=== PATIENT | female | born 1930 | race Caucasian/White ===

== ENCOUNTER 2017-09-06 15:59 | Emergency (ER) | payer MEDICARE, OTHER ==
[2017-09-06 16:26] VITALS: BP 210/78
--- NOTE | 2017-09-06 17:01 | EDM.PDOC ---
ED HPI GENERAL MEDICAL PROBLEM - General Chief Complaint: Cardiovascular Problem Stated Complaint: HIGH BLOOD PRESSURE Time Seen by Provider: 09/06/17 16:15 Source of Information: Reports: Patient History Limitations: Reports: Other (poor memory ) - History of Present Illness INITIAL COMMENTS - FREE TEXT/NARRATIVE: 87 y/o F with hx CKD and HTN presents with asymptomatic high blood pressure. She 's here with her daughter. Daughter checked her BP at home and it was in the high 100's systolic so she brought her to walk in clinic who directed her here. Patient did take her medications today. She is on doxazosin, no additional antihypertensives. She states she's been compliant with her meds. Patient states she feels fine. She denies headache, vision changes, weakness, chest pain , SOB, abd pain, vomiting, lower extremity pain, or swelling. Daughter states she always has some ankle swelling and it appears to be at baseline. Patient has a history of either intolerance or allergy to a long list of antihypertensives (see allergy list) but is unable to state what the adverse reactions are and doesn't know if any are true allergies. - Related Data Allergies Allergy/AdvReac Type Severity Reaction Status Date / Time amlodipine [From Norvasc] Allergy Cannot Verified 09/06/17 16:14 Remember atorvastatin [From Lipitor] Allergy Cannot Verified 09/06/17 16:14 Remember fluvastatin [From Lescol] Allergy Cannot Verified 09/06/17 16:14 Remember hydrochlorothiazide Allergy Cannot Verified 09/06/17 16:14 Remember labetalol Allergy Cannot Verified 09/06/17 16:14 Remember lisinopril Allergy Cannot Verified 09/06/17 16:14 Remember nabumetone [From Relafen] Allergy Cannot Verified 09/06/17 16:14 Remember nebivolol [From Bystolic] Allergy Cannot Verified 09/06/17 16:14 Remember olmesartan [From Benicar] Allergy Cannot Verified 09/06/17 16:14 Remember pneumococcal vaccine Allergy Cannot Verified 09/06/17 16:14 Remember rosuvastatin [From Crestor] Allergy Cannot Verified 09/06/17 16:14 Remember simvastatin [From Zocor] Allergy Cannot Verified 09/06/17 16:14 Remember Home Meds: Home Meds Acyclovir 400 mg PO 09/06/17 [History] Alendronate [Fosamax] 70 mg PO 09/06/17 [History] Cephalexin [Keflex] 500 mg PO 09/06/17 [History] Cholecalciferol (Vitamin D3) [Vitamin D3] 09/06/17 [History] Cranberry 09/06/17 [History] Cyclophosphamide 25 mg PO 09/06/17 [History] Dapsone 09/06/17 [History] Doxazosin [Cardura] 09/06/17 [History] Esomeprazole [NexIUM] 09/06/17 [History] Ferrous Sulfate 325 mg PO WITHBREAKFAST 09/06/17 [History] Prednisone [IJD: predniSONE] 40 mg PO WITHBREAKFAST 09/06/17 [History] Sodium Bicarbonate 650 mg PO TID 09/06/17 [History] cloNIDine [Catapres] 0.1 mg PO Q12HR #60 tab 09/06/17 [Rx] hydrALAZINE [Apresoline] 10 mg PO Q8H #90 tab 09/06/17 [Rx] Past Medical History HEENT History: Reports: Cataract Cardiovascular History: Reports: Arrhythmia, Hypertension Gastrointestinal History: Reports: GERD Genitourinary History: Reports: Other (See Below) Other Genitourinary History: bladder spasms Other OB/BYN History: monarch sling Musculoskeletal History: Reports: Osteoarthritis Neurological History: Reports: Headaches, Chronic Other Hematologic History: hypercalcemia Oncologic (Cancer) History: Reports: Other (See Below) Other Oncologic History: decreased hemoglobin - Past Surgical History GI Surgical History: Reports: Cholecystectomy, Colonoscopy, Other (See Below) Female Surgical History: Reports: Cystectomy, Hysterectomy, Suprapubic Catheter Placement Musculoskeletal Surgical History: Reports: Arthroscopic Knee, Knee Replacement, Other (See Below) Dermatological Surgical History: Reports: Skin Biopsy Social & Family History - Family History Family Medical History: Noncontributory - Caffeine Use Caffeine Use: Reports: Coffee ED ROS GENERAL - Review of Systems Review Of Systems: See Below Constitutional: Reports: No Symptoms HEENT: Reports: No Symptoms Respiratory: Reports: No Symptoms. Denies: Shortness of Breath Cardiovascular: Reports: No Symptoms. Denies: Chest Pain Endocrine: Reports: No Symptoms GI/Abdominal: Denies: Abdominal Pain : Reports: No Symptoms Musculoskeletal: Reports: No Symptoms Skin: Reports: No Symptoms Neurological: Denies: Headache ED EXAM, GENERAL - Physical Exam Exam: See Below Exam Limited By: No Limitations General Appearance: Alert, WD/WN, No Apparent Distress Eye Exam: Bilateral Eye: Normal Inspection, PERRL Ears: Normal External Exam Nose: Normal Inspection Throat/Mouth: Normal Inspection, Normal Oropharynx, Normal Voice, No Airway Compromise Head: Atraumatic, Normocephalic Neck: Normal Inspection, Supple Respiratory/Chest: No Respiratory Distress, Lungs Clear, Normal Breath Sounds, No Accessory Muscle Use, Chest Non-Tender Cardiovascular: Normal Peripheral Pulses, Regular Rate, Rhythm, No Murmur GI/Abdominal: Soft, Non-Tender, No Distention Extremities: Other (bilat LE edema, mild, 1+ bilat) Neurological: Alert, Oriented, Normal Cognition, No Motor/Sensory Deficits Psychiatric: Normal Affect, Normal Mood Skin Exam: Warm, Dry, Intact, Normal Color, No Rash Course - Vital Signs Last Recorded V/S: Last Vital Signs Temp 36.9 C 09/06/17 16:21 Pulse 66 09/06/17 16:21 Resp 18 09/06/17 16:21 BP 210/78 H 09/06/17 16:21 Pulse Ox 95 09/06/17 16:21 - Re-Assessments/Exams Free Text/Narrative Re-Assessment/Exam: Asymptomatic HTN so no indication for ED workup. She is well-appearing. Very little insight into mediation history and has large number of anti- hypertensives on allergy list but is unable to state reaction. 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 Mcmahon for this. I discussed with Dr. Lyle who initially suggested addition hydralazine 10 mg tid, but patient and daughter state that she was previously on this and Dr. Mcmahon discontinued it for reasons they aren't sure of. He also started the doxazosin which she's taking but appears to be insufficient to control her HTN. Because I'm not certain why the hydralazine was discontinued and at this time of the day I can' t discuss with Dr. Mcmahon, we'll start clonidine instead. Daughter will check BP daily and keep a log. Dr. Lyle states she can see patient in clinic next week, family will call to schedule. They also have previously scheduled f/u with Dr. Mcmahon next week. Departure - Departure Time of Disposition: 16:59 Disposition: Home, Self-Care 01 Clinical Impression: Hypertension Qualifiers: Hypertension type: unspecified Qualified Code(s): I10 - Essential (primary) hypertension Prescriptions: cloNIDine [Catapres] 0.1 mg PO Q12HR #60 tab hydrALAZINE [Apresoline] 10 mg PO Q8H #90 tab Instructions: Hypertension, [id number] Referrals: Екатерина Lyle NP [Ordering Only Provider] - Forms: ED Department Discharge Additional Instructions: 1. Continue to take all of your usual medications as prescribed 2. Take clonidine twice daily as prescribed. Take first dose with evening meds tonight. 3. Keep a blood pressure log. Try to check the blood pressure 1-3 times per day. Follow up with Dr. Lyle for further care. Call to schedule with her next week. 4. Return to the ED for chest pain, difficulty breathing, severe headache, mental status changes, or any other concerning symptoms.
== END 2017-09-06 17:33 | disposition home or self-care (01) ==
LOC: JD.ED 15:59
DX: I12.9 Hypertensive chronic kidney disease with stage 1 through stage 4 chronic kidney disease, or unspecified chronic kidney disease (principal); N18.4 Chronic kidney disease, stage 4 (severe); K21.9 Gastro-esophageal reflux disease without esophagitis; Z90.49 Acquired absence of other specified parts of digestive tract; Z90.710 Acquired absence of both cervix and uterus; Z79.899 Other long term (current) drug therapy; Z88.7 Allergy status to serum and vaccine
CPT/HCPCS: 99283

== ENCOUNTER 2017-09-20 10:09 | Inpatient (IN) | payer MEDICARE, OTHER ==
--- NOTE | 2017-09-20 10:32 | CT ---
Head CT Technique: Multiple axial sections through the brain were obtained. Intravenous contrast was not utilized. Comparison: No previous intracranial imaging. Findings: Ventricles along the basal cisterns and sulci over the convexities are moderately prominent. Diffuse diminished density is noted within the periventricular and subcortical white matter compatible with small vessel ischemic demyelination change. Low-density areas are noted within both basal ganglia most likely representing old lacunar infarcts. No other abnormal parenchymal densities are seen. No evidence of intracranial hemorrhage. No midline shift or mass effect is seen. Bone window settings shows no acute calvarial abnormality. Visualized sinuses are clear. Mild atherosclerotic calcification is seen within the carotid siphon. Impression: 1. Diffuse senescent change as noted above. No acute intracranial abnormality is identified. Diagnostic code #3
--- NOTE | 2017-09-20 10:47 | EDM.PDOC ---
ED HPI GENERAL MEDICAL PROBLEM - General Chief Complaint: Neuro Symptoms/Deficits Stated Complaint: [facility] Time Seen by Provider: 09/20/17 10:29 Source of Information: Reports: Patient, Family (4 family members) History Limitations: Reports: Physical Impairment (Confused) - History of Present Illness INITIAL COMMENTS - FREE TEXT/NARRATIVE: The patient's daughter states that the patient has been lethargic and "disoriented" since last night. They noted that she had some trouble gripping her walker with her left hand yesterday while at PT, however, the physical therapist did an assessment, and found no focal weakness. No recent fever, nausea, vomiting, constipation, diarrhea, or urinary symptoms. No recent chest pain, dyspnea, or palpitations. The family was concerned that the patient might be having a stroke. It is not known when her last known well was. The patient's PCP is Dr. Alejandrina Lyle. - Related Data Allergies Allergy/AdvReac Type Severity Reaction Status Date / Time amlodipine [From Norvasc] Allergy Cannot Verified 09/20/17 10:49 Remember atorvastatin [From Lipitor] Allergy Cannot Verified 09/20/17 10:49 Remember fluvastatin [From Lescol] Allergy Cannot Verified 09/20/17 10:49 Remember hydrochlorothiazide Allergy Cannot Verified 09/20/17 10:49 Remember labetalol Allergy Cannot Verified 09/20/17 10:49 Remember lisinopril Allergy Cannot Verified 09/20/17 10:49 Remember nabumetone [From Relafen] Allergy Cannot Verified 09/20/17 10:49 Remember nebivolol [From Bystolic] Allergy Cannot Verified 09/20/17 10:49 Remember olmesartan [From Benicar] Allergy Cannot Verified 09/20/17 10:49 Remember pneumococcal vaccine Allergy Cannot Verified 09/20/17 10:49 Remember rosuvastatin [From Crestor] Allergy Cannot Verified 09/20/17 10:49 Remember simvastatin [From Zocor] Allergy Cannot Verified 09/20/17 10:49 Remember Home Meds: Home Meds Acyclovir 400 mg PO BEDTIME 09/06/17 [History] Alendronate [Fosamax] 70 mg PO ASDIRECTED 09/06/17 [History] Cephalexin [Keflex] 500 mg PO ASDIRECTED 09/06/17 [History] Cholecalciferol (Vitamin D3) [Vitamin D3] 2,000 units PO DAILY 09/06/17 [History ] Cranberry 1 cap PO DAILY 09/06/17 [History] Cyclophosphamide 25 mg PO ASDIRECTED 09/06/17 [History] Dapsone 25 mg PO DAILY 09/06/17 [History] Doxazosin [Cardura] 16 mg PO BEDTIME 09/06/17 [History] Esomeprazole [NexIUM] 40 mg PO DAILY 09/06/17 [History] Ferrous Sulfate 325 mg PO WITHBREAKFAST 09/06/17 [History] Prednisone [IJD: predniSONE] 30 mg PO WITHBREAKFAST 09/06/17 [History] Sodium Bicarbonate 1,300 mg PO TID 09/06/17 [History] cloNIDine [Catapres] 0.2 mg PO BID 09/20/17 [History] Past Medical History HEENT History: Reports: Impaired Vision Cardiovascular History: Reports: Hypertension Gastrointestinal History: Reports: GERD Genitourinary History: Reports: Chronic Renal Insuffiency, Other (See Below) ( Spastic bladder) Musculoskeletal History: Reports: Osteoarthritis, Osteoporosis Neurological History: Reports: Headaches, Chronic Hematologic History: Reports: Anemia - Past Surgical History HEENT Surgical History: Reports: Cataract Surgery GI Surgical History: Reports: Cholecystectomy, Colonoscopy Female Surgical History: Reports: Cystectomy, Hysterectomy, Suprapubic Catheter Placement, Other (See Below) (Bladder sling) Musculoskeletal Surgical History: Reports: Arthroscopic Knee, Knee Replacement Dermatological Surgical History: Reports: Skin Biopsy Social & Family History - Family History Family Medical History: Noncontributory - Tobacco Use Smoking Status *Q: Former Smoker Second Hand Smoke Exposure: No - Caffeine Use Caffeine Use: Reports: Coffee - Alcohol Use Alcohol Use History: Yes Alcohol Use Frequency: Socially - Recreational Drug Use Recreational Drug Use: No - Living Situation & Occupation Living situation: Reports: , with Spouse, with Family (Son) Occupation: Retired ED ROS GENERAL - Review of Systems Review Of Systems: ROS reveals no pertinent complaints other than HPI. ED EXAM, GENERAL - Physical Exam Exam: See Below Exam Limited By: Other (Difficulty in following commands - may not understand) General Appearance: Alert, WD/WN, No Apparent Distress Eye Exam: Bilateral Eye: Normal Inspection Ears: Normal External Exam, Hearing Grossly Normal Nose: Normal Inspection, No Blood Throat/Mouth: Normal Inspection, Normal Lips, Normal Voice, No Airway Compromise Head: Atraumatic, Normocephalic Neck: Normal Inspection, Full Range of Motion Respiratory/Chest: No Respiratory Distress, Lungs Clear, Normal Breath Sounds, No Accessory Muscle Use Cardiovascular: Normal Peripheral Pulses, Regular Rate, Rhythm, No Edema, No Gallop, No JVD, No Murmur, No Rub Peripheral Pulses: 4+: Radial (L), Radial (R) GI/Abdominal: Normal Bowel Sounds, Soft, Non-Tender, No Organomegaly, No Distention, No Abnormal Bruit, No Mass (Female) Exam: Deferred Rectal (Female) Exam: Deferred Extremities: Normal Inspection, Normal Range of Motion, No Pedal Edema, Normal Capillary Refill Neurological: Alert, Confused (Was able to follow certain commands, such as raising eyebrows, but looked to her daughter without responding when asked other commands, such as to stick her tongue out. It is unclear if the patient has a receptive aphasia. Unclear if the patient is weaker on the left side.) Psychiatric: Other (Unable to assess) Skin Exam: Warm, Dry, Intact, Normal Color, No Rash EKG INTERPRETATION EKG Date: 09/20/17 Time: 10:24 Rhythm: Other (Sinus bradycardia) Rate (Beats/Min): 56 Hamilton: LAD-Left Hamilton Deviation P-Wave: Present QRS: LBBB ST-T: Normal QT: Normal Comparison: No Change (04/07/2016) Course - Vital Signs Last Recorded V/S: Last Vital Signs Temp 36.4 C 09/20/17 10:15 Pulse 52 L 09/20/17 10:15 Resp 16 09/20/17 10:15 BP 170/67 H 09/20/17 10:15 Pulse Ox 93 L 09/20/17 10:15 - Orders/Labs/Meds Orders: Active Orders 24 hr Category Date Time Status EKG Documentation Completion [RC] ASDIRECTED Care 09/20/17 10:30 Active Urinary Catheter Assessment [RC] ASDIRECTED Care 09/20/17 11:22 Active Urinary Catheter Insertion [Insert Urinary Catheter] [ Care 09/20/17 11:30 Ordered OM.PC] Q24H UA W/MICROSCOPIC [URIN] Stat Lab 09/20/17 11:15 Ordered EKG 12 Lead [EK] Stat Ther 09/20/17 10:30 Ordered Labs: Laboratory Tests 0509/20/17 09/20/17 Range/Units 10:16 10:22 10:22 WBC 4.22 (3.98-10.04) K/mm3 RBC 2.91 L (3.98-5.22) M/mm3 Hgb 9.3 L (11.2-15.7) gm/L Hct 29.2 L (34.1-44.9) % MCV 100.3 H (79.4-94.8) fl MCH 32.0 (25.6-32.2) pg MCHC 31.8 L (32.2-35.5) g/dl RDW Std Deviation 64.1 H (36.4-46.3) fL Plt Count 127 L (182-369) K/mm3 MPV 10.5 (9.4-12.3) fl Neutrophils % (Manual) 78 H (40-60) % Band Neutrophils % 1 (0-10) % Lymphocytes % (Manual) 21 (20-40) % Atypical Lymphs % 0 % Monocytes % (Manual) 0 L (2-10) % Eosinophils % (Manual) 0 L (0.7-5.8) % Basophils % (Manual) 0 L (0.1-1.2) Platelet Estimate See note Polychromasia 1+ slight Hypochromasia 1+ slight Anisocytosis 1+ slight RBC Morph Comment Not Reportable Sodium 139 (136-145) mEq/L Potassium 3.6 (3.5-5.1) mEq/L Chloride 103 (98-107) mEq/L Carbon Dioxide 27 (21-32) mEq/L Anion Gap 12.6 (5-15) BUN 71 H (7-18) mg/dL Creatinine 2.8 H (0.55-1.02) mg/dL Est Cr Clr Drug Dosing 10.36 mL/min Estimated GFR (MDRD) 16 (>60) mL/min BUN/Creatinine Ratio 25.4 H (14-18) Glucose 129 H (83-115) mg/dL POC Glucose 143 H (83-110) mg/dL Calcium 8.8 (8.5-10.1) mg/dL Magnesium 1.6 L (1.8-2.4) mg/dl Total Bilirubin 0.7 (0.2-1.0) mg/dL AST 18 (15-37) U/L ALT 18 (14-59) U/L Alkaline Phosphatase 45 L (46-116) U/L Troponin I 0.052 (0.00-0.056) ng/mL Total Protein 6.0 L (6.4-8.2) g/dl Albumin 3.0 L (3.4-5.0) g/dl Globulin 3.0 gm/dL Albumin/Globulin Ratio 1.0 (1-2) Urine Color (Yellow) Urine Appearance (Clear) Urine pH (5.0-8.0) Ur Specific Russell (1.005-1.030) Urine Protein (Negative) Urine Glucose (UA) (Negative) Urine Ketones (Negative) Urine Occult Blood (Negative) Urine Nitrite (Negative) Urine Bilirubin (Negative) Urine Urobilinogen (0.2-1.0) Ur Leukocyte Esterase (Negative) Urine RBC (0-5) /hpf Urine WBC (0-5) /hpf Ur Epithelial Cells (0-5) /hpf Urine Bacteria (FEW) /hpf Urine Mucus (FEW) /hpf 09/20/17 Range/Units 11:15 WBC (3.98-10.04) K/mm3 RBC (3.98-5.22) M/mm3 Hgb (11.2-15.7) gm/L Hct (34.1-44.9) % MCV (79.4-94.8) fl MCH (25.6-32.2) pg MCHC (32.2-35.5) g/dl RDW Std Deviation (36.4-46.3) fL Plt Count (182-369) K/mm3 MPV (9.4-12.3) fl Neutrophils % (Manual) (40-60) % Band Neutrophils % (0-10) % Lymphocytes % (Manual) (20-40) % Atypical Lymphs % % Monocytes % (Manual) (2-10) % Eosinophils % (Manual) (0.7-5.8) % Basophils % (Manual) (0.1-1.2) Platelet Estimate Polychromasia Hypochromasia Anisocytosis RBC Morph Comment Sodium (136-145) mEq/L Potassium (3.5-5.1) mEq/L Chloride (98-107) mEq/L Carbon Dioxide (21-32) mEq/L Anion Gap (5-15) BUN (7-18) mg/dL Creatinine (0.55-1.02) mg/dL Est Cr Clr Drug Dosing mL/min Estimated GFR (MDRD) (>60) mL/min BUN/Creatinine Ratio (14-18) Glucose (83-115) mg/dL POC Glucose (83-110) mg/dL Calcium (8.5-10.1) mg/dL Magnesium (1.8-2.4) mg/dl Total Bilirubin (0.2-1.0) mg/dL AST (15-37) U/L ALT (14-59) U/L Alkaline Phosphatase (46-116) U/L Troponin I (0.00-0.056) ng/mL Total Protein (6.4-8.2) g/dl Albumin (3.4-5.0) g/dl Globulin gm/dL Albumin/Globulin Ratio (1-2) Urine Color Yellow (Yellow) Urine Appearance Slt cloudy H (Clear) Urine pH 7.0 (5.0-8.0) Ur Specific Russell 1.015 (1.005-1.030) Urine Protein 1+ H (Negative) Urine Glucose (UA) Negative (Negative) Urine Ketones Negative (Negative) Urine Occult Blood 3+ H (Negative) Urine Nitrite Negative (Negative) Urine Bilirubin Negative (Negative) Urine Urobilinogen 0.2 (0.2-1.0) Ur Leukocyte Esterase Negative (Negative) Urine RBC 50-75 H (0-5) /hpf Urine WBC 0-5 (0-5) /hpf Ur Epithelial Cells 0-5 (0-5) /hpf Urine Bacteria Few (FEW) /hpf Urine Mucus Few (FEW) /hpf Meds: Medications Discontinued Medications Generic Name Dose Route Start Last Admin Trade Name Freq PRN Reason Stop Dose Admin Magnesium Sulfate 2 gm/ Premix 50 mls @ 50 mls/hr 09/20/17 11:41 09/20/17 11: 47 IV 09/20/17 12:40 50 mls/hr ONETIME STA Administration - Re-Assessments/Exams Free Text/Narrative Re-Assessment/Exam: 09/20/17 10:46 CT of the head without contrast is read by Dr. Hendrix as: 1. Diffuse senescent change as noted above. No acute intracranial abnormality is identified. 09/20/17 11:37 Portable chest radiograph reviewed. The patient has significant cardiomegaly, but no pulmonary vascular congestion or visible pleural effusions, to suggest decompensated CHF. No focal infiltrate. No pneumothorax. Severe scoliosis, with concomitant anatomic aberrations, including tortuous aorta, noted. Formal read per the Radiologist pending. 09/20/17 11:42 The patient's magnesium has returned as mildly depressed at 1.6. I have ordered a 1 g Mg-rider. The patient's BUN/Cr have returned substantially elevated at 71/2.8, however, reviewing prior labs, this is the patient's baseline. The patient is mildly anemic, with a H/H of 9.3/29.2. Her platelets are depressed at 127,000. The patient's urinalysis is normal, with the exception of significant hematuria. No suggestion of a UTI. Review of prior labs finds that the patient has had significant hematuria since May 2017. 09/20/17 12:43 Test results discussed with 2 of the patient's daughters. Today's workup is grossly unremarkable. 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 Her magnesium level was found to be depressed at 1.6, and she is now status post 1 g Mg-rider. The CT scan of the head was negative for an acute stroke, and her chest radiograph, while abnormal, found no acute findings. I would prefer that the patient stay overnight for observation. The family is agreeable. Case then discussed with Dr. Mora at 12:39. He accepts the patient for placement into observation on telemetry. Departure - Departure Time of Disposition: 12:40 Disposition: Refer to Observation Condition: Fair Clinical Impression: Lethargy, Hypomagnesemia - Discharge Information - My Orders Last 24 Hours: My Active Orders 09/20/17 10:30 EKG Documentation Completion [RC] ASDIRECTED EKG 12 Lead [EK] Stat 09/20/17 11:15 UA W/MICROSCOPIC [URIN] Stat 09/20/17 11:22 Urinary Catheter Assessment [RC] ASDIRECTED 09/20/17 11:30 Urinary Catheter Insertion [Insert Urinary Catheter] [OM.PC] Q24H - Assessment/Plan Last 24 Hours: My Active Orders 09/20/17 10:30 EKG Documentation Completion [RC] ASDIRECTED EKG 12 Lead [EK] Stat 09/20/17 11:15 UA W/MICROSCOPIC [URIN] Stat 09/20/17 11:22 Urinary Catheter Assessment [RC] ASDIRECTED 09/20/17 11:30 Urinary Catheter Insertion [Insert Urinary Catheter] [OM.PC] Q24H
[2017-09-20] MEDS ORDERED: Magnesium Sulfate/Water 2 GM in Premix Bag 1 BAG IV STA (11:41)
--- NOTE | 2017-09-20 12:52 | CR ---
Chest: Frontal view of the chest was obtained. Comparison: No prior chest x-ray. Heart is enlarged. Tortuous thoracic aorta is seen. Scoliosis is noted within the spine with evidence of prior vertebroplasty within the lower thoracic spine. Lungs are clear without acute parenchymal densities. Impression: 1. Findings as noted above. Nothing acute is identified. Diagnostic code #2
[2017-09-20] MEDS ORDERED: LORazepam 2 MG/ML SDV IVPUSH PRN (16:18)
[2017-09-20] MEDS ORDERED: Metoprolol Tartrate 5 MG/5 ML SDV IVPUSH PRN (16:18)
[2017-09-20] MEDS ORDERED: Docusate Sodium 100 MG Cap PO PRN (16:21)
[2017-09-20] MEDS ORDERED: Albuterol/Ipratropium 3.0-0.5 MG/3 ML Neb Soln NEB PRN (16:21)
[2017-09-20] MEDS ORDERED: Bisacodyl 5 MG Tab PO PRN (16:21)
[2017-09-20] MEDS ORDERED: LORazepam 2 MG/ML SDV IV PRN (16:21)
[2017-09-20] MEDS ORDERED: Acetaminophen 325 MG Tab PO PRN (16:21)
[2017-09-20] MEDS ORDERED: Ondansetron 4 MG/2 ML SDV IV PRN (16:21)
[2017-09-20] MEDS ORDERED: Polyethylene Glycol 3350 Powder 17 GM Packet PO PRN (16:21)
[2017-09-20] MEDS ORDERED: Promethazine 6.25 MG in Sodium Chloride 0.9% 50 ML IV PRN (16:21)
[2017-09-20] MEDS ORDERED: Acetaminophen/HYDROcodone 325-5 MG Tab PO PRN (16:21)
--- NOTE | 2017-09-20 16:30 | PCM.HP ---
H&P History of Present Illness - General Date of Service: 09/20/17 Admit Problem/Dx: Admission Diagnosis/Problem Admission Diagnosis/Problem Lethargy Source of Information: Patient, Family, Old Records, Provider, RN Notes Reviewed , Significant Other History Limitations: Reports: Physical Impairment - History of Present Illness Initial Comments - Free Text/Narative: This is an 87 yo elderly white female with past medical hx/o Impaired Vision, HTN, GERD, CKD Stage 4-5, Spastic Bladder, OA, Osteoporosis, Chronic Headaches, Anemia of Chronic Disease, and Autoimmune Disease who comes in with complaints of lethargy and disorientation that start last night. Her chief complaints are associated with some trouble with gripping her walker using her left hand but no obvious neurological deficits noted. She denies any other issues. Her initial workup in the emergency department shows a CBC remarkable for RBC of 2.91, hemoglobin of 9.3, hematocrit of 29.2, MCV of 100.3, MCHC of 31.8, RDW of 64.1, platelet count of 127, and neutrophils of 78%. His chemistry is remarkable for BUN of 71, creatinine of 2.8, glucose of 129, magnesium 1.6, alkaline phosphatase of 45, total protein of 6, and albumin of 3. Her UA is negative for UTI. Her Chest x-ray and head CT scan both show no acute abnormal findings. Patient is being admitted for evaluation of transient confusion. She is full code. - Related Data Allergies/Adverse Reactions: Allergies Allergy/AdvReac Type Severity Reaction Status Date / Time amlodipine [From Norvasc] Allergy Cannot Verified 09/20/17 10:49 Remember atorvastatin [From Lipitor] Allergy Cannot Verified 09/20/17 10:49 Remember fluvastatin [From Lescol] Allergy Cannot Verified 09/20/17 10:49 Remember hydrochlorothiazide Allergy Cannot Verified 09/20/17 10:49 Remember labetalol Allergy Cannot Verified 09/20/17 10:49 Remember lisinopril Allergy Cannot Verified 09/20/17 10:49 Remember nabumetone [From Relafen] Allergy Cannot Verified 09/20/17 10:49 Remember nebivolol [From Bystolic] Allergy Cannot Verified 09/20/17 10:49 Remember olmesartan [From Benicar] Allergy Cannot Verified 09/20/17 10:49 Remember pneumococcal vaccine Allergy Cannot Verified 09/20/17 10:49 Remember rosuvastatin [From Crestor] Allergy Cannot Verified 09/20/17 10:49 Remember simvastatin [From Zocor] Allergy Cannot Verified 09/20/17 10:49 Remember Home Medications: Home Meds Acyclovir 400 mg PO BID 09/06/17 [History] Alendronate [Fosamax] 70 mg PO ASDIRECTED 09/06/17 [History] Cephalexin [Keflex] 500 mg PO ASDIRECTED 09/06/17 [History] Cholecalciferol (Vitamin D3) [Vitamin D3] 2,000 units PO DAILY 09/06/17 [History ] Cranberry 1 cap PO DAILY 09/06/17 [History] Cyclophosphamide 25 mg PO ASDIRECTED 09/06/17 [History] Dapsone 25 mg PO DAILY 09/06/17 [History] Doxazosin [Cardura] 16 mg PO BEDTIME 09/06/17 [History] Esomeprazole [NexIUM] 20 mg PO DAILY 09/06/17 [History] Ferrous Sulfate 325 mg PO WITHBREAKFAST 09/06/17 [History] Prednisone [IJD: predniSONE] 30 mg PO WITHBREAKFAST 09/06/17 [History] Sodium Bicarbonate 650 mg PO BID 09/06/17 [History] Furosemide [Lasix] 40 mg PO BID 09/20/17 [History] cloNIDine [Catapres] 0.2 mg PO BID 09/20/17 [History] Past Medical History HEENT History: Reports: Impaired Vision Cardiovascular History: Reports: Hypertension Gastrointestinal History: Reports: GERD Genitourinary History: Reports: Chronic Renal Insuffiency, Other (See Below) Other Genitourinary History: bladder spasms Other OB/BYN History: monarch sling Musculoskeletal History: Reports: Osteoarthritis, Osteoporosis Neurological History: Reports: Headaches, Chronic Hematologic History: Reports: Anemia Other Hematologic History: hypercalcemia Oncologic (Cancer) History: Reports: Other (See Below) Other Oncologic History: decreased hemoglobin - Past Surgical History HEENT Surgical History: Reports: Cataract Surgery GI Surgical History: Reports: Cholecystectomy, Colonoscopy Female Surgical History: Reports: Cystectomy, Hysterectomy, Suprapubic Catheter Placement, Other (See Below) Musculoskeletal Surgical History: Reports: Arthroscopic Knee, Knee Replacement Dermatological Surgical History: Reports: Skin Biopsy Social & Family History - Family History Family Medical History: Noncontributory - Tobacco Use Smoking Status *Q: Former Smoker Second Hand Smoke Exposure: No - Caffeine Use Caffeine Use: Reports: Coffee - Recreational Drug Use Recreational Drug Use: No - Living Situation & Occupation Living situation: Reports: , with Spouse, with Family (Son) Occupation: Retired H&P Review of Systems - Review of Systems: Review Of Systems: ROS reveals no pertinent complaints other than HPI. Exam - Exam Exam: See Below - Vital Signs Vital Signs: Last Vital Signs Temp 36.3 C 09/20/17 15:14 Pulse 54 L 09/20/17 15:14 Resp 16 09/20/17 15:14 BP 155/78 H 09/20/17 15:14 Pulse Ox 95 09/20/17 15:14 Weight: 47.763 kg - Exam General: Alert, Mild Distress, Other (Some difficulty following commands) HEENT: Conjunctiva Clear, Mucosa Moist & [place], Nares Patent, Normal Nasal Septum , Posterior Pharynx Clear, Pupils Equal, Pupils Reactive Neck: Supple, Trachea Midline, Full Range of Motion. No: Thyromegaly Lungs: Clear to Auscultation, Normal Respiratory Effort Cardiovascular: Regular Rate, Regular Rhythm GI/Abdominal Exam: Normal Bowel Sounds, Soft, Non-Tender, No Organomegaly, No Distention, No Abnormal Bruit, No Mass (Female) Exam: Deferred Rectal (Female) Exam: Deferred Back Exam: Normal Inspection, Decreased Range of Motion Extremities: Normal Inspection, Normal Range of Motion, Non-Tender, No Pedal Edema, Normal Capillary Refill Skin: Warm, Dry, Intact Neuro Extensive - Mental Status: Normal Mood/Affect Neuro Extensive - Motor, Sensory, Reflexes: CN II-XII Intact (Limited: she has difficulty following simple commands), Abnormal Gait Psychiatric: Alert, Normal Affect, Normal Mood - Patient Data Lab Results Last 24 hrs: Laboratory Results - last 24 hr 09/20/17 09/20/17 09/20/17 Range/Units 10:16 10:22 10:22 WBC 4.22 (3.98-10.04) K/mm3 RBC 2.91 L (3.98-5.22) M/mm3 Hgb 9.3 L (11.2-15.7) gm/L Hct 29.2 L (34.1-44.9) % MCV 100.3 H (79.4-94.8) fl MCH 32.0 (25.6-32.2) pg MCHC 31.8 L (32.2-35.5) g/dl RDW Std Deviation 64.1 H (36.4-46.3) fL Plt Count 127 L (182-369) K/mm3 MPV 10.5 (9.4-12.3) fl Neutrophils % (Manual) 78 H (40-60) % Band Neutrophils % 1 (0-10) % Lymphocytes % (Manual) 21 (20-40) % Atypical Lymphs % 0 % Monocytes % (Manual) 0 L (2-10) % Eosinophils % (Manual) 0 L (0.7-5.8) % Basophils % (Manual) 0 L (0.1-1.2) Platelet Estimate See note Polychromasia 1+ slight Hypochromasia 1+ slight Anisocytosis 1+ slight RBC Morph Comment Not Reportable Sodium 139 (136-145) mEq/L Potassium 3.6 (3.5-5.1) mEq/L Chloride 103 (98-107) mEq/L Carbon Dioxide 27 (21-32) mEq/L Anion Gap 12.6 (5-15) BUN 71 H (7-18) mg/dL Creatinine 2.8 H (0.55-1.02) mg/dL Est Cr Clr Drug Dosing 10.36 mL/min Estimated GFR (MDRD) 16 (>60) mL/min BUN/Creatinine Ratio 25.4 H (14-18) Glucose 129 H (83-115) mg/dL POC Glucose 143 H (83-110) mg/dL Calcium 8.8 (8.5-10.1) mg/dL Magnesium 1.6 L (1.8-2.4) mg/dl Total Bilirubin 0.7 (0.2-1.0) mg/dL AST 18 (15-37) U/L ALT 18 (14-59) U/L Alkaline Phosphatase 45 L (46-116) U/L Troponin I 0.052 (0.00-0.056) ng/mL Total Protein 6.0 L (6.4-8.2) g/dl Albumin 3.0 L (3.4-5.0) g/dl Globulin 3.0 gm/dL Albumin/Globulin Ratio 1.0 (1-2) Urine Color (Yellow) Urine Appearance (Clear) Urine pH (5.0-8.0) Ur Specific [place] (1.005-1.030) Urine Protein (Negative) Urine Glucose (UA) (Negative) Urine Ketones (Negative) Urine Occult Blood (Negative) Urine Nitrite (Negative) Urine Bilirubin (Negative) Urine Urobilinogen (0.2-1.0) Ur Leukocyte Esterase (Negative) Urine RBC (0-5) /hpf Urine WBC (0-5) /hpf Ur Epithelial Cells (0-5) /hpf Urine Bacteria (FEW) /hpf Urine Mucus (FEW) /hpf 09/20/17 Range/Units 11:15 WBC (3.98-10.04) K/mm3 RBC (3.98-5.22) M/mm3 Hgb (11.2-15.7) gm/L Hct (34.1-44.9) % MCV (79.4-94.8) fl MCH (25.6-32.2) pg MCHC (32.2-35.5) g/dl RDW Std Deviation (36.4-46.3) fL Plt Count (182-369) K/mm3 MPV (9.4-12.3) fl Neutrophils % (Manual) (40-60) % Band Neutrophils % (0-10) % Lymphocytes % (Manual) (20-40) % Atypical Lymphs % % Monocytes % (Manual) (2-10) % Eosinophils % (Manual) (0.7-5.8) % Basophils % (Manual) (0.1-1.2) Platelet Estimate Polychromasia Hypochromasia Anisocytosis RBC Morph Comment Sodium (136-145) mEq/L Potassium (3.5-5.1) mEq/L Chloride (98-107) mEq/L Carbon Dioxide (21-32) mEq/L Anion Gap (5-15) BUN (7-18) mg/dL Creatinine (0.55-1.02) mg/dL Est Cr Clr Drug Dosing mL/min Estimated GFR (MDRD) (>60) mL/min BUN/Creatinine Ratio (14-18) Glucose (83-115) mg/dL POC Glucose (83-110) mg/dL Calcium (8.5-10.1) mg/dL Magnesium (1.8-2.4) mg/dl Total Bilirubin (0.2-1.0) mg/dL AST (15-37) U/L ALT (14-59) U/L Alkaline Phosphatase (46-116) U/L Troponin I (0.00-0.056) ng/mL Total Protein (6.4-8.2) g/dl Albumin (3.4-5.0) g/dl Globulin gm/dL Albumin/Globulin Ratio (1-2) Urine Color Yellow (Yellow) Urine Appearance Slt cloudy H (Clear) Urine pH 7.0 (5.0-8.0) Ur Specific [place] 1.015 (1.005-1.030) Urine Protein 1+ H (Negative) Urine Glucose (UA) Negative (Negative) Urine Ketones Negative (Negative) Urine Occult Blood 3+ H (Negative) Urine Nitrite Negative (Negative) Urine Bilirubin Negative (Negative) Urine Urobilinogen 0.2 (0.2-1.0) Ur Leukocyte Esterase Negative (Negative) Urine RBC 50-75 H (0-5) /hpf Urine WBC 0-5 (0-5) /hpf Ur Epithelial Cells 0-5 (0-5) /hpf Urine Bacteria Few (FEW) /hpf Urine Mucus Few (FEW) /hpf Result Diagrams: 09/20/17 10:22 09/20/17 10:22 Problem List Initiated/Reviewed/Updated: Yes Orders Last 24hrs: Active Orders 24 hr Category Date Time Status Admission Status [Patient Status] [ADT] Routine ADT 09/20/17 14:10 Active Height and Weight [RC] DAILY Care 09/20/17 16:21 Ordered Intake and Output [RC] QSHIFT Care 09/20/17 16:23 Ordered Oxygen Therapy [RC] PRN Care 09/20/17 16:21 Ordered RT Aerosol Therapy [RC] ASDIRECTED Care 09/20/17 16:25 Ordered Up With Assistance [RC] ASDIRECTED Care 09/20/17 16:21 Ordered Up ad Nhung [RC] ASDIRECTED Care 09/20/17 16:21 Ordered Urinary Catheter Insertion [Insert Urinary Catheter] [ Care 09/20/17 11:30 Ordered OM.PC] Q24H VTE/DVT Education [RC] PER UNIT ROUTINE Care 09/20/17 16:21 Ordered Vital Signs [RC] Q4H Care 09/20/17 16:21 Ordered Consult to Case Management [CONS] Routine Cons 09/20/17 16:21 Ordered Consult to Manager Pet [CONS] Routine Cons 09/20/17 16:21 Ordered Consult to Spiritual Care [CONS] Routine Cons 09/20/17 16:21 Ordered OT Evaluation and Treatment [CONS] Routine Cons 09/20/17 16:21 Ordered PT Evaluation and Treatment [CONS] Routine Cons 09/20/17 16:21 Ordered 2 Gram Sodium Diet [DIET] Diet 09/20/17 Dinner Ordered Regular Diet [DIET] Diet 09/20/17 Dinner Active BASIC METABOLIC PANEL,BMP [CHEM] AM Lab 09/21/17 05:11 Ordered CBC WITH AUTO DIFF [HEME] AM Lab 09/21/17 05:11 Ordered FOLIC ACID [CHEM] Urgent Lab 09/20/17 16:27 Ordered MAGNESIUM [CHEM] AM Lab 09/21/17 05:11 Ordered T4 FREE [CHEM] Urgent Lab 09/20/17 16:26 Ordered TSH [CHEM] Urgent Lab 09/20/17 16:26 Ordered UA W/MICROSCOPIC [URIN] Stat Lab 09/20/17 11:15 Ordered VITAMIN B12 [CHEM] Urgent Lab 09/20/17 16:28 Ordered VITAMIN D 25-HYROXY (D2, D3) [REF] Stat Lab 09/20/17 16:25 Ordered Acetaminophen [Tylenol] Med 09/20/17 16:21 Ordered 650 mg PO Q4H PRN Acetaminophen/HYDROcodone [[place] 325-5 MG] Med 09/20/17 16:21 Ordered 1 tab PO Q4H PRN Acyclovir Med 09/20/17 21:00 Ordered 400 mg PO BID Albuterol/Ipratropium [DuoNeb 3.0-0.5 MG/3 ML] Med 09/20/17 16:21 Ordered 3 ml NEB Q4H PRN Alendronate [Fosamax] Med 09/20/17 16:30 Ordered 70 mg PO ASDIRECTED Bisacodyl [Dulcolax] Med 09/20/17 16:21 Ordered 5 mg PO DAILY PRN Cholecalciferol (Vitamin D3) [Vitamin D3] Med 09/21/17 09:00 Ordered 2,000 units PO DAILY Cranberry [Cranberry] Med 09/21/17 09:00 Ordered 1 cap PO DAILY Cyclophosphamide [Cyclophosphamide] Med 09/20/17 16:30 Ordered 25 mg PO ASDIRECTED Dapsone Med 09/21/17 09:00 Ordered 25 mg PO DAILY Docusate Sodium [Colace] Med 09/20/17 16:21 Ordered 100 mg PO BID PRN Docusate Sodium/Sennosides [Senna Plus] Med 09/20/17 16:21 Ordered 1 tab PO BID PRN Doxazosin [Cardura] Med 09/20/17 21:00 Ordered 16 mg PO BEDTIME Esomeprazole Med 09/21/17 09:00 Ordered 20 mg PO DAILY Ferrous Sulfate [Ferrous Sulfate] Med 09/21/17 07:00 Ordered 325 mg PO WITHBREAKFAST Furosemide [Lasix] Med 09/20/17 21:00 Ordered 40 mg PO BID LORazepam [Ativan] Med 09/20/17 16:21 Ordered 0.25 mg IV Q6H PRN LORazepam [Ativan] Med 09/20/17 16:18 Ordered 2 mg IVPUSH Q4H PRN Magnesium Rep Pharmacy to Dose [Pharmacy to Dose - Med 09/20/17 16:30 Ordered Magnesium Replacement] 1 dose .XX ASDIRECTED Metoprolol Tartrate [Lopressor] Med 09/20/17 16:18 Ordered 5 mg IVPUSH Q4H PRN Multivitamins,Therapeutic [Thera] Med 09/20/17 21:00 Ordered 1 each PO BEDTIME Ondansetron [Zofran] Med 09/20/17 16:21 Ordered 4 mg IV Q6H PRN Polyethylene Glycol 3350 [MiraLAX] Med 09/20/17 16:21 Ordered 17 gm PO DAILY PRN Potassium Rep Pharmacy to Dose [Pharmacy to Dose - Med 09/20/17 16:30 Ordered Potassium Replacement] 1 dose .XX ASDIRECTED Prednisone Med 09/21/17 07:00 Ordered 30 mg PO WITHBREAKFAST Promethazine [Phenergan] 6.25 mg Med 09/20/17 16:21 Ordered Sodium Chloride 0.9% [Normal Saline] 50 ml IV Q6H Sodium Bicarbonate [Sodium Bicarbonate] Med 09/20/17 21:00 Ordered 650 mg PO BID Thiamine [Vitamin B-1] Med 09/20/17 19:00 Ordered 200 mg IV DAILY cloNIDine [Catapres] Med 09/20/17 21:00 Ordered 0.2 mg PO BID hydrALAZINE [Apresoline] Med 09/20/17 16:18 Ordered 10 mg IVPUSH Q4H PRN Sequential Compression Device [OM.PC] Per Unit Routine Oth 09/20/17 16:23 Ordered Resuscitation Status Routine Resus Stat 09/20/17 16:21 Ordered EKG 12 Lead [EK] Stat Ther 09/20/17 10:30 Ordered Medication Orders Acetaminophen (Tylenol) 650 mg PO Q4H PRN PRN Reason: Pain (Mild 1-3)/fever Hydrocodone Bitart/Acetaminophen ([place] 325-5 Mg) 1 tab PO Q4H PRN PRN Reason: Pain (moderate 4-6) Albuterol/Ipratropium (Duoneb 3.0-0.5 Mg/3 Ml) 3 ml NEB Q4H PRN PRN Reason: Shortness Of Breath/wheezing Bisacodyl (Dulcolax) 5 mg PO DAILY PRN PRN Reason: Constipation Docusate Sodium (Colace) 100 mg PO BID PRN PRN Reason: Constipation Hydralazine HCl (Apresoline) 10 mg IVPUSH Q4H PRN PRN Reason: Hypertension Promethazine HCl 6.25 mg/ (Sodium Chloride) 50.25 mls @ 100 mls/hr IV Q6H PRN PRN Reason: Nausea/Vomiting Lorazepam (Ativan) 2 mg IVPUSH Q4H PRN PRN Reason: Seizures Lorazepam (Ativan) 0.25 mg IV Q6H PRN PRN Reason: Anxiety Magnesium Sulfate (Pharmacy To Dose - Magnesium Replacement) 1 dose .XX ASDIRECTED [place] Metoprolol Tartrate (Lopressor) 5 mg IVPUSH Q4H PRN PRN Reason: Tachycardia Multivitamins (Thera) 1 each PO BEDTIME [facility] Non-Formulary Medication (Cyclophosphamide [Cyclophosphamide]) 25 mg PO ASDIRECTED [facility] Non-Formulary Medication (Alendronate [Fosamax]) 70 mg PO ASDIRECTED [facility] Non-Formulary Medication (Sodium Bicarbonate [Sodium Bicarbonate]) 650 mg PO BID [facility] Non-Formulary Medication (Furosemide [Lasix]) 40 mg PO BID [facility] Non-Formulary Medication (Doxazosin [Cardura]) 16 mg PO BEDTIME [facility] Non-Formulary Medication (Clonidine [Catapres]) 0.2 mg PO BID [facility] Non-Formulary Medication (Acyclovir) 400 mg PO BID [facility] Non-Formulary Medication (Prednisone) 30 mg PO WITHBREAKFAST [facility] Non-Formulary Medication (Ferrous Sulfate [Ferrous Sulfate]) 325 mg PO WITHBREAKFAST [facility] Non-Formulary Medication (Esomeprazole) 20 mg PO DAILY [facility] Non-Formulary Medication (Dapsone) 25 mg PO DAILY [facility] Non-Formulary Medication (Cranberry [Cranberry]) 1 cap PO DAILY [facility] Non-Formulary Medication (Cholecalciferol (Vitamin D3) [Vitamin D3]) 2,000 units PO DAILY [facility] Ondansetron HCl (Zofran) 4 mg IV Q6H PRN PRN Reason: Nausea/Vomiting Polyethylene Glycol (Miralax) 17 gm PO DAILY PRN PRN Reason: Constipation Potassium Chloride (Pharmacy To Dose - Potassium Replacement) 1 dose .XX ASDIRECTED [facility] Senna/Docusate Sodium (Senna Plus) 1 tab PO BID PRN PRN Reason: Constipation Thiamine HCl (Vitamin B-1) 200 mg IV DAILY [facility] Assessment/Plan Comment:: Assessment/Plan: Acute: Transient Confusion - No obvious neurological deficits - CT scan/CXR: no acute abnormality - UA and Troponin both negative - She seems back at her baseline - Suspect Metabolic/Drug Encephalopathy Generalized Weakness - Multi-factorial: Anemia, CKD, Hypogmagnesemia, Osteoporosis, Diffuse OA and Medications Side effects - PT/OT consult - Vit D level, Thyroid Panel, Folic Acid and B12 level Hypomagnesemia - Likely 2/2 inadequate intake - Replete and monitor Chronic: Impaired Vision HTN GERD 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
[2017-09-20] MEDS: Thiamine 200 MG/2 ML MDV IV SCH (18:21)
[2017-09-20] MEDS: Potassium Chloride 20 MEQ Tab.ER PO SCH ×2 (18:23→21:33)
[2017-09-20] MEDS ORDERED: FUROSEMIDE 40 MG PO SCH (21:00)
[2017-09-20] MEDS ORDERED: ACYCLOVIR 400 MG PO SCH (21:00)
[2017-09-20] MEDS ORDERED: cloNIDine 0.1 MG Tab **OWN MED PO SCH (21:00)
[2017-09-20] MEDS ORDERED: SODIUM BICARBONATE 650 MG PO SCH (21:00)
[2017-09-20] MEDS ORDERED: DOXAZOSIN 8 MG PO SCH (21:00)
[2017-09-20] MEDS: Multivitamins,Therapeutic Tab PO SCH (21:33)
[2017-09-20] MEDS: cloNIDine 0.1 MG Tab **OWN MED PO SCH (23:10)
[2017-09-21] MEDS: hydrALAZINE 20 MG/ML SDV IVPUSH PRN ×2 (01:11→04:20)
[2017-09-21] MEDS ORDERED: PREDNISONE 20 MG PO SCH ×2 (07:00→08:14)
--- NOTE | 2017-09-21 08:06 | PCM.PN ---
- General Info Date of Service: 09/21/17 Admission Dx/Problem (Free Text): Admission Diagnosis/Problem Admission Diagnosis/Problem Lethargy Subjective Update: Follow Up Functional Status: Reports: Pain Controlled, Tolerating Diet, Ambulating, Urinating - Review of Systems General: Reports: Weakness. Denies: Fever, Fatigue, Malaise, Chills HEENT: Reports: No Symptoms Pulmonary: Denies: Shortness of Breath Cardiovascular: Denies: Chest Pain, Palpitations, Dyspnea on Exertion, Lightheadedness Gastrointestinal: Denies: Abdominal Pain, Nausea, Vomiting Genitourinary: Reports: No Symptoms Musculoskeletal: Reports: No Symptoms Skin: Reports: No Symptoms Neurological: Reports: Confusion. Denies: Dizziness, Headache, Numbness, Syncope, Difficulty Walking, Weakness, Gait Disturbance Psychiatric: Denies: Depression, Anxiety, Agitation, Hallucinations Systems Review Comment:: Patient has significant elevation in her blood pressure overnight. She received hydralazine treatment but once her pressure improved she went into transient period wherein she gave her nurse blank stare. Her neurological exam was benign. This morning she is awake and alert at bedside and has no acute issues or concerns. - Patient Data Vitals - Most Recent: Last Vital Signs Temp 36.4 C 09/21/17 08:00 Pulse 54 L 09/21/17 08:00 Resp 14 09/21/17 08:00 BP 158/63 H 09/21/17 08:00 Pulse Ox 96 09/21/17 08:00 Weight - Most Recent: 47.763 kg I&O - Last 24 Hours: Intake & Output 09/20/17 09/21/17 09/21/17 22:59 06:59 14:59 Intake Total 240 240 Output Total 300 Balance 240 -60 Lab Results Last 24 Hours: Laboratory Results - last 24 hr 09/20/17 09/20/17 09/20/17 Range/Units 10:16 10:22 10:22 WBC 4.22 (3.98-10.04) K/mm3 RBC 2.91 L (3.98-5.22) M/mm3 Hgb 9.3 L (11.2-15.7) gm/L Hct 29.2 L (34.1-44.9) % MCV 100.3 H (79.4-94.8) fl MCH 32.0 (25.6-32.2) pg MCHC 31.8 L (32.2-35.5) g/dl RDW Std Deviation 64.1 H (36.4-46.3) fL Plt Count 127 L (182-369) K/mm3 MPV 10.5 (9.4-12.3) fl Neut % (Auto) (34.0-71.1) % Lymph % (Auto) (19.3-51.7) % [place] % (Auto) (4.7-12.5) % Eos % (Auto) (0.7-5.8) Baso % (Auto) (0.1-1.2) % Neut # (Auto) (1.56-6.13) K/mm3 Lymph # (Auto) (1.18-3.74) K/mm3 [place] # (Auto) (0.24-0.36) K/mm3 Eos # (Auto) (0.04-0.36) K/mm3 Baso # (Auto) (0.01-0.08) K/mm3 Neutrophils % (Manual) 78 H (40-60) % Band Neutrophils % 1 (0-10) % Lymphocytes % (Manual) 21 (20-40) % Atypical Lymphs % 0 % Monocytes % (Manual) 0 L (2-10) % Eosinophils % (Manual) 0 L (0.7-5.8) % Basophils % (Manual) 0 L (0.1-1.2) Platelet Estimate See note Polychromasia 1+ slight Hypochromasia 1+ slight Anisocytosis 1+ slight RBC Morph Comment Not Reportable Sodium 139 (136-145) mEq/L Potassium 3.6 (3.5-5.1) mEq/L Chloride 103 (98-107) mEq/L Carbon Dioxide 27 (21-32) mEq/L Anion Gap 12.6 (5-15) BUN 71 H (7-18) mg/dL Creatinine 2.8 H (0.55-1.02) mg/dL Est Cr Clr Drug Dosing 10.36 mL/min Estimated GFR (MDRD) 16 (>60) mL/min BUN/Creatinine Ratio 25.4 H (14-18) Glucose 129 H (83-115) mg/dL POC Glucose 143 H (83-110) mg/dL Calcium 8.8 (8.5-10.1) mg/dL Magnesium 1.6 L (1.8-2.4) mg/dl Total Bilirubin 0.7 (0.2-1.0) mg/dL AST 18 (15-37) U/L ALT 18 (14-59) U/L Alkaline Phosphatase 45 L (46-116) U/L Troponin I 0.052 (0.00-0.056) ng/mL Total Protein 6.0 L (6.4-8.2) g/dl Albumin 3.0 L (3.4-5.0) g/dl Globulin 3.0 gm/dL Albumin/Globulin Ratio 1.0 (1-2) Vitamin B12 (193-986) pg/ml Folate (8.6-58.9) ng/mL Free T4 (0.76-1.46) ng/dL TSH 3rd Generation (0.358-3.74) uIU/mL Urine Color (Yellow) Urine Appearance (Clear) Urine pH (5.0-8.0) Ur Specific [place] (1.005-1.030) Urine Protein (Negative) Urine Glucose (UA) (Negative) Urine Ketones (Negative) Urine Occult Blood (Negative) Urine Nitrite (Negative) Urine Bilirubin (Negative) Urine Urobilinogen (0.2-1.0) Ur Leukocyte Esterase (Negative) Urine RBC (0-5) /hpf Urine WBC (0-5) /hpf Ur Epithelial Cells (0-5) /hpf Urine Bacteria (FEW) /hpf Urine Mucus (FEW) /hpf 09/20/17 09/20/17 09/20/17 Range/Units 10:30 11:15 16:50 WBC (3.98-10.04) K/mm3 RBC (3.98-5.22) M/mm3 Hgb (11.2-15.7) gm/L Hct (34.1-44.9) % MCV (79.4-94.8) fl MCH (25.6-32.2) pg MCHC (32.2-35.5) g/dl RDW Std Deviation (36.4-46.3) fL Plt Count (182-369) K/mm3 MPV (9.4-12.3) fl Neut % (Auto) (34.0-71.1) % Lymph % (Auto) (19.3-51.7) % [place] % (Auto) (4.7-12.5) % Eos % (Auto) (0.7-5.8) Baso % (Auto) (0.1-1.2) % Neut # (Auto) (1.56-6.13) K/mm3 Lymph # (Auto) (1.18-3.74) K/mm3 [place] # (Auto) (0.24-0.36) K/mm3 Eos # (Auto) (0.04-0.36) K/mm3 Baso # (Auto) (0.01-0.08) K/mm3 Neutrophils % (Manual) (40-60) % Band Neutrophils % (0-10) % Lymphocytes % (Manual) (20-40) % Atypical Lymphs % % Monocytes % (Manual) (2-10) % Eosinophils % (Manual) (0.7-5.8) % Basophils % (Manual) (0.1-1.2) Platelet Estimate Polychromasia Hypochromasia Anisocytosis RBC Morph Comment Sodium (136-145) mEq/L Potassium (3.5-5.1) mEq/L Chloride (98-107) mEq/L Carbon Dioxide (21-32) mEq/L Anion Gap (5-15) BUN (7-18) mg/dL Creatinine (0.55-1.02) mg/dL Est Cr Clr Drug Dosing mL/min Estimated GFR (MDRD) (>60) mL/min BUN/Creatinine Ratio (14-18) Glucose (83-115) mg/dL POC Glucose (83-110) mg/dL Calcium (8.5-10.1) mg/dL Magnesium (1.8-2.4) mg/dl Total Bilirubin (0.2-1.0) mg/dL AST (15-37) U/L ALT (14-59) U/L Alkaline Phosphatase (46-116) U/L Troponin I (0.00-0.056) ng/mL Total Protein (6.4-8.2) g/dl Albumin (3.4-5.0) g/dl Globulin gm/dL Albumin/Globulin Ratio (1-2) Vitamin B12 1255 H (193-986) pg/ml Folate 16.4 (8.6-58.9) ng/mL Free T4 0.90 (0.76-1.46) ng/dL TSH 3rd Generation 4.223 H (0.358-3.74) uIU/mL Urine Color Yellow (Yellow) Urine Appearance Slt cloudy H (Clear) Urine pH 7.0 (5.0-8.0) Ur Specific [place] 1.015 (1.005-1.030) Urine Protein 1+ H (Negative) Urine Glucose (UA) Negative (Negative) Urine Ketones Negative (Negative) Urine Occult Blood 3+ H (Negative) Urine Nitrite Negative (Negative) Urine Bilirubin Negative (Negative) Urine Urobilinogen 0.2 (0.2-1.0) Ur Leukocyte Esterase Negative (Negative) Urine RBC 50-75 H (0-5) /hpf Urine WBC 0-5 (0-5) /hpf Ur Epithelial Cells 0-5 (0-5) /hpf Urine Bacteria Few (FEW) /hpf Urine Mucus Few (FEW) /hpf 09/21/17 09/21/17 09/21/17 Range/Units 07:22 07:22 07:22 WBC 4.51 (3.98-10.04) K/mm3 RBC 3.16 L (3.98-5.22) M/mm3 Hgb 10.1 L (11.2-15.7) gm/L Hct 31.5 L (34.1-44.9) % MCV 99.7 H (79.4-94.8) fl MCH 32.0 (25.6-32.2) pg MCHC 32.1 L (32.2-35.5) g/dl RDW Std Deviation 63.8 H (36.4-46.3) fL Plt Count 128 L (182-369) K/mm3 MPV 10.6 (9.4-12.3) fl Neut % (Auto) 72.9 H (34.0-71.1) % Lymph % (Auto) 16.9 L (19.3-51.7) % [place] % (Auto) 8.9 (4.7-12.5) % Eos % (Auto) 0.4 L (0.7-5.8) Baso % (Auto) 0.2 (0.1-1.2) % Neut # (Auto) 3.29 (1.56-6.13) K/mm3 Lymph # (Auto) 0.76 L (1.18-3.74) K/mm3 [place] # (Auto) 0.40 H (0.24-0.36) K/mm3 Eos # (Auto) 0.02 L (0.04-0.36) K/mm3 Baso # (Auto) 0.01 (0.01-0.08) K/mm3 Neutrophils % (Manual) (40-60) % Band Neutrophils % (0-10) % Lymphocytes % (Manual) (20-40) % Atypical Lymphs % % Monocytes % (Manual) (2-10) % Eosinophils % (Manual) (0.7-5.8) % Basophils % (Manual) (0.1-1.2) Platelet Estimate Polychromasia Hypochromasia Anisocytosis RBC Morph Comment Sodium 137 (136-145) mEq/L Potassium 4.7 (3.5-5.1) mEq/L Chloride 104 (98-107) mEq/L Carbon Dioxide 24 (21-32) mEq/L Anion Gap 13.7 (5-15) BUN 72 H (7-18) mg/dL Creatinine 2.8 H (0.55-1.02) mg/dL Est Cr Clr Drug Dosing 10.36 mL/min Estimated GFR (MDRD) 16 (>60) mL/min BUN/Creatinine Ratio 25.7 H (14-18) Glucose 100 (83-115) mg/dL POC Glucose (83-110) mg/dL Calcium 9.6 (8.5-10.1) mg/dL Magnesium 2.2 (1.8-2.4) mg/dl Total Bilirubin (0.2-1.0) mg/dL AST (15-37) U/L ALT (14-59) U/L Alkaline Phosphatase (46-116) U/L Troponin I 0.033 (0.00-0.056) ng/mL Total Protein (6.4-8.2) g/dl Albumin (3.4-5.0) g/dl Globulin gm/dL Albumin/Globulin Ratio (1-2) Vitamin B12 (193-986) pg/ml Folate (8.6-58.9) ng/mL Free T4 (0.76-1.46) ng/dL TSH 3rd Generation (0.358-3.74) uIU/mL Urine Color (Yellow) Urine Appearance (Clear) Urine pH (5.0-8.0) Ur Specific [place] (1.005-1.030) Urine Protein (Negative) Urine Glucose (UA) (Negative) Urine Ketones (Negative) Urine Occult Blood (Negative) Urine Nitrite (Negative) Urine Bilirubin (Negative) Urine Urobilinogen (0.2-1.0) Ur Leukocyte Esterase (Negative) Urine RBC (0-5) /hpf Urine WBC (0-5) /hpf Ur Epithelial Cells (0-5) /hpf Urine Bacteria (FEW) /hpf Urine Mucus (FEW) /hpf Med Orders - Current: Current Medications Acetaminophen (Tylenol) 650 mg PO Q4H PRN PRN Reason: Pain (Mild 1-3)/fever Hydrocodone Bitart/Acetaminophen ([place] 325-5 Mg) 1 tab PO Q4H PRN PRN Reason: Pain (moderate 4-6) Albuterol/Ipratropium (Duoneb 3.0-0.5 Mg/3 Ml) 3 ml NEB Q4H PRN PRN Reason: Shortness Of Breath/wheezing Bisacodyl (Dulcolax) 5 mg PO DAILY PRN PRN Reason: Constipation Clonidine HCl (Catapres) 0.2 mg PO Q12H [facility] Last Admin: 09/20/17 23:10 Dose: 0.2 mg Docusate Sodium (Colace) 100 mg PO BID PRN PRN Reason: Constipation Furosemide (Lasix) 40 mg PO BID [facility] Last Admin: 09/20/17 21:30 Dose: 40 mg Hydralazine HCl (Apresoline) 10 mg IVPUSH Q4H PRN PRN Reason: Hypertension Last Admin: 09/21/17 04:20 Dose: 10 mg Promethazine HCl 6.25 mg/ (Sodium Chloride) 50.25 mls @ 100 mls/hr IV Q6H PRN PRN Reason: Nausea/Vomiting Lorazepam (Ativan) 2 mg IVPUSH Q4H PRN PRN Reason: Seizures Lorazepam (Ativan) 0.25 mg IV Q6H PRN PRN Reason: Anxiety Magnesium Sulfate (Pharmacy To Dose - Magnesium Replacement) 0 dose .XX ASDIRECTED PRN PRN Reason: RX TO WATCH MAG LEVELS Metoprolol Tartrate (Lopressor) 5 mg IVPUSH Q4H PRN PRN Reason: Tachycardia Multivitamins (Thera) 1 each PO BEDTIME [facility] Last Admin: 09/20/17 21:33 Dose: 1 each Non-Formulary Medication (Cyclophosphamide [Cyclophosphamide]) 25 mg PO Q2D@ 0900 [facility] Non-Formulary Medication (Alendronate [Fosamax]) 70 mg PO Tu@0600 [facility] Doxazosin 8 Mg Own (Med) 0 mg PO BEDTIME [facility] Last Admin: 09/20/17 21:30 Dose: 16 mg Acyclovir 400 Mg (Own Med) 0 mg PO BID [facility] Last Admin: 09/20/17 21:30 Dose: 400 mg Non-Formulary Medication (Ferrous Sulfate [Ferrous Sulfate]) 325 mg PO WITHBREAKFAST [facility] Non-Formulary Medication (Esomeprazole) 20 mg PO DAILY [facility] Non-Formulary Medication (Dapsone) 25 mg PO DAILY [facility] Non-Formulary Medication (Cranberry [Cranberry]) 1 cap PO DAILY [facility] Non-Formulary Medication (Cholecalciferol (Vitamin D3) [Vitamin D3]) 2,000 units PO DAILY [facility] Ondansetron HCl (Zofran) 4 mg IV Q6H PRN PRN Reason: Nausea/Vomiting Polyethylene Glycol (Miralax) 17 gm PO DAILY PRN PRN Reason: Constipation Potassium Chloride (Pharmacy To Dose - Potassium Replacement) 0 dose .XX ASDIRECTED PRN PRN Reason: RX TO WATCH K LEVELS Prednisone (Prednisone) 30 mg PO WITHBREAKFAST [facility] Senna/Docusate Sodium (Senna Plus) 1 tab PO BID PRN PRN Reason: Constipation Sodium Bicarbonate (Sodium Bicarbonate) 650 mg PO BID [facility] Last Admin: 09/20/17 21:30 Dose: 650 mg Thiamine HCl (Vitamin B-1) 200 mg IV DAILY [facility] Last Admin: 09/20/17 18:21 Dose: 200 mg Discontinued Medications Clonidine HCl (Catapres) 0.1 mg PO Q12H [facility] Magnesium Sulfate 2 gm/ Premix 50 mls @ 50 mls/hr IV ONETIME [facility] Stop: 09/20/17 12:40 Last Admin: 09/20/17 11:47 Dose: 50 mls/hr Potassium Chloride (Klor-Con M20) 40 meq PO Q4H [facility] Stop: 09/20/17 22:01 Last Admin: 09/20/17 21:33 Dose: 40 meq - Exam General: Alert, Cooperative, No Acute Distress. No: Oriented HEENT: Pupils Equal, Pupils Reactive, EOMI, Mucous Membr. Moist/[place] Neck: Supple, Trachea Midline, No JVD Lungs: Clear to Auscultation, Normal Respiratory Effort Cardiovascular: Regular Rate, Regular Rhythm GI/Abdominal Exam: Normal Bowel Sounds, Soft, Non-Tender, No Organomegaly, No Distention, No Abnormal Bruit (Female) Exam: Deferred Back Exam: Normal Inspection, Decreased Range of Motion Extremities: Normal Inspection, Normal Range of Motion, Non-Tender, No Pedal Edema, Normal Capillary Refill Peripheral Pulses: 2+: Dorsalis Pedis (L), Dorsalis Pedis (R) Skin: Warm, Dry, Intact Neurological: No New Focal Deficit Psy/Mental Status: Alert, Normal Affect, Normal Mood - Problem List Review Problem List Initiated/Reviewed/Updated: Yes - My Orders Last 24 Hours: My Active Orders 09/20/17 10:30 VITAMIN D 25-HYROXY (D2, D3) [REF] Stat 09/20/17 16:18 LORazepam [Ativan] 2 mg IVPUSH Q4H PRN Metoprolol Tartrate [Lopressor] 5 mg IVPUSH Q4H PRN hydrALAZINE [Apresoline] 10 mg IVPUSH Q4H PRN 09/20/17 16:21 Height and Weight [RC] 04 Oxygen Therapy [RC] PRN Up With Assistance [RC] ASDIRECTED Up ad Nhung [RC] ASDIRECTED VTE/DVT Education [RC] PER UNIT ROUTINE Vital Signs [RC] Q4HR Consult to Case Management [CONS] Routine Consult to Drafter (Cad) Electronic [CONS] Routine Consult to Spiritual Care [CONS] Routine OT Evaluation and Treatment [CONS] Routine PT Evaluation and Treatment [CONS] Routine Acetaminophen [Tylenol] 650 mg PO Q4H PRN Acetaminophen/HYDROcodone [[place] 325-5 MG] 1 tab PO Q4H PRN Albuterol/Ipratropium [DuoNeb 3.0-0.5 MG/3 ML] 3 ml NEB Q4H PRN Bisacodyl [Dulcolax] 5 mg PO DAILY PRN Docusate Sodium [Colace] 100 mg PO BID PRN Docusate Sodium/Sennosides [Senna Plus] 1 tab PO BID PRN LORazepam [Ativan] 0.25 mg IV Q6H PRN Ondansetron [Zofran] 4 mg IV Q6H PRN Polyethylene Glycol 3350 [MiraLAX] 17 gm PO DAILY PRN Promethazine [Phenergan] 6.25 mg Sodium Chloride 0.9% [Normal Saline] 50 ml IV Q6H Resuscitation Status Routine 09/20/17 16:23 Intake and Output [RC] 04,16 Sequential Compression Device [OM.PC] Per Unit Routine 09/20/17 16:25 RT Aerosol Therapy [RC] ASDIRECTED 09/20/17 16:30 Magnesium Rep Pharmacy to Dose [Pharmacy to Dose - Magnesium Replacement] 0 dose .XX ASDIRECTED PRN Potassium Rep Pharmacy to Dose [Pharmacy to Dose - Potassium Replacement] 0 dose .XX ASDIRECTED PRN 09/20/17 19:00 Thiamine [Vitamin B-1] 200 mg IV DAILY 09/20/17 21:00 Acyclovir 0 mg PO BID Doxazosin [Cardura] 0 mg PO BEDTIME Furosemide [Lasix] 40 mg PO BID Multivitamins,Therapeutic [Thera] 1 each PO BEDTIME Sodium Bicarbonate 650 mg PO BID 09/20/17 22:37 cloNIDine [Catapres] 0.2 mg PO Q12H 09/20/17 Dinner 2 Gram Sodium Diet [DIET] Regular Diet [DIET] 09/21/17 06:26 EKG 12 Lead [EKG Documentation Completion] [RC] STAT 09/21/17 07:00 Ferrous Sulfate [Ferrous Sulfate] 325 mg PO WITHBREAKFAST predniSONE 30 mg PO WITHBREAKFAST 09/21/17 07:03 Neuro Check [RC] PRN 09/21/17 07:27 Consult to Speech Language Pathology [BILINGUAL INSTRUCTOR Evaluation and Treatment] [CONS] Routine 09/21/17 09:00 Cholecalciferol (Vitamin D3) [Vitamin D3] 2,000 units PO DAILY Cranberry [Cranberry] 1 cap PO DAILY Dapsone 25 mg PO DAILY Esomeprazole 20 mg PO DAILY 09/22/17 09:00 Cyclophosphamide [Cyclophosphamide] 25 mg PO Q2D@0900 09/27/17 06:00 Alendronate [Fosamax] 70 mg PO Tu@0600 - Plan Plan:: Assessment/Plan: Acute: Transient Confusion/Delirium - 2/2 Drug Encephalopathy (Clonidine) vs Sudden Dropped in Blood Pressure ( Transient Hypo-perfusion)-dropped to 98/72 mmHg (this is not where she normally lives at; Spoke to daughter on average patient normally runs in the 170-180s and sometimes in the 190s SBP but Marketing Designer wants patient to be at 160 SBP - No obvious neurological deficits - CT scan/CXR: No acute abnormality - UA and Troponin both negative; Troponin and EKG this AM-negative - She is baseline but disorientated x 3: Time: July, Place: Don't know where she is at, Person: Do not know, even with a clue provided - BILINGUAL INSTRUCTOR for cognitive eval and MMSE - Awaiting Vit D level - Adjust Hydralazaline to 5 mg IVP Q6H PRN for BP of 175/90 mmHg Generalized Weakness - Multi-factorial: Anemia, CKD, Hypogmagnesemia, Osteoporosis, Diffuse OA and Medications Side effects - Continue PT/OT - Vit D level-pending - Thyroid Panel-Elevated TSH 4.223 and normal FT4 0.90 - Folic Acid-normal - B12 level-considerably elevated at 1255 Resolved: S/p Hypomagnesemia - Mg 1.6 --> 2.2 - Likely 2/2 inadequate intake - Replete and monitor Chronic: Impaired Vision HTN GERD 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
[2017-09-21] MEDS ORDERED: SODIUM BICARBONATE 650 MG PO SCH (08:12)
[2017-09-21] MEDS ORDERED: DOXAZOSIN 8 MG PO SCH (08:16)
[2017-09-21] MEDS ORDERED: ACYCLOVIR 400 MG PO SCH (08:17)
[2017-09-21] MEDS ORDERED: FUROSEMIDE 40 MG PO SCH (08:18)
[2017-09-21] MEDS ORDERED: CRANBERRY PO SCH (09:00)
[2017-09-21] MEDS ORDERED: hydrALAZINE 20 MG/ML SDV IVPUSH PRN (09:24)
[2017-09-21] MEDS: Thiamine 200 MG/2 ML MDV IV SCH (09:36)
[2017-09-21] MEDS: Ferrous Sulfate 325 MG Tab PO SCH (09:37)
[2017-09-21] MEDS: Cholecalciferol (Vitamin D3) 1,000 Unit Tab PO SCH (09:37)
[2017-09-21] MEDS: Pantoprazole 40 MG Tab.CR PO SCH (09:37)
[2017-09-21] MEDS: cloNIDine 0.1 MG Tab **OWN MED PO SCH ×2 (09:39→16:47)
[2017-09-21] MEDS: Acyclovir 200 MG Cap PO SCH (21:32)
[2017-09-21] MEDS: Sodium Bicarbonate 650 MG Tab PO SCH (21:32)
[2017-09-21] MEDS: Multivitamins,Therapeutic Tab PO SCH (21:33)
[2017-09-21] MEDS: cloNIDine 0.1 MG Tab PO SCH (21:33)
[2017-09-21] MEDS: Furosemide 40 MG Tab PO SCH (21:34)
[2017-09-21] MEDS: Doxazosin 4 MG Tab PO SCH (21:34)
[2017-09-21] MEDS ORDERED: Labetalol 100 MG/20 ML MDV IVPUSH PRN (23:04)
[2017-09-22] MEDS ORDERED: hydrALAZINE 20 MG/ML SDV IVPUSH PRN (00:11)
[2017-09-22] MEDS: predniSONE 10 MG Tab PO SCH (06:06)
[2017-09-22] MEDS: Ferrous Sulfate 325 MG Tab PO SCH (06:06)
[2017-09-22] MEDS: Pantoprazole 40 MG Tab.CR PO SCH (06:06)
--- NOTE | 2017-09-22 07:18 | PCM.PN ---
- General Info Date of Service: 09/22/17 Admission Dx/Problem (Free Text): Admission Diagnosis/Problem Admission Diagnosis/Problem Lethargy Subjective Update: Follow Up Functional Status: Reports: Pain Controlled, Tolerating Diet, Urinating - Review of Systems General: Reports: Weakness, Fatigue. Denies: Fever, Chills HEENT: Reports: No Symptoms Pulmonary: Denies: Shortness of Breath Cardiovascular: Denies: Chest Pain, Palpitations, Dyspnea on Exertion, Lightheadedness Gastrointestinal: Denies: Abdominal Pain, Nausea, Vomiting Genitourinary: Reports: No Symptoms Musculoskeletal: Reports: No Symptoms Skin: Denies: Cyanosis, Mottled, Pallor, Diaphoresis Neurological: Reports: Confusion, Weakness, Gait Disturbance. Denies: Difficulty Walking Psychiatric: Denies: Depression, Anxiety, Agitation, Hallucinations Systems Review Comment:: No significant overnight or acute issues. She slept well and feels okay. She had difficulty getting out of bed according to PT/OT this morning. Her BPs this morning again were significantly elevated as high as 190s systolic. She received a one time low dose of hydralazine IVP and her BP improved to 150s systolic. - Patient Data Vitals - Most Recent: Last Vital Signs Temp 36.6 C 09/21/17 17:51 Pulse 55 L 09/22/17 05:05 Resp 18 09/22/17 05:05 BP 195/73 H 09/22/17 05:05 Pulse Ox 95 09/22/17 05:05 Weight - Most Recent: 51.851 kg I&O - Last 24 Hours: Intake & Output 09/21/17 09/22/17 09/22/17 22:59 06:59 14:59 Intake Total 600 100 Balance 600 100 Lab Results Last 24 Hours: Laboratory Results - last 24 hr 09/20/17 09/21/17 09/21/17 Range/Units 10:30 07:22 07:22 WBC 4.51 (3.98-10.04) K/mm3 RBC 3.16 L (3.98-5.22) M/mm3 Hgb 10.1 L (11.2-15.7) gm/L Hct 31.5 L (34.1-44.9) % MCV 99.7 H (79.4-94.8) fl MCH 32.0 (25.6-32.2) pg MCHC 32.1 L (32.2-35.5) g/dl RDW Std Deviation 63.8 H (36.4-46.3) fL Plt Count 128 L (182-369) K/mm3 MPV 10.6 (9.4-12.3) fl Neut % (Auto) 72.9 H (34.0-71.1) % Lymph % (Auto) 16.9 L (19.3-51.7) % Hughes % (Auto) 8.9 (4.7-12.5) % Eos % (Auto) 0.4 L (0.7-5.8) Baso % (Auto) 0.2 (0.1-1.2) % Neut # (Auto) 3.29 (1.56-6.13) K/mm3 Lymph # (Auto) 0.76 L (1.18-3.74) K/mm3 Hughes # (Auto) 0.40 H (0.24-0.36) K/mm3 Eos # (Auto) 0.02 L (0.04-0.36) K/mm3 Baso # (Auto) 0.01 (0.01-0.08) K/mm3 Sodium 137 (136-145) mEq/L Potassium 4.7 (3.5-5.1) mEq/L Chloride 104 (98-107) mEq/L Carbon Dioxide 24 (21-32) mEq/L Anion Gap 13.7 (5-15) BUN 72 H (7-18) mg/dL Creatinine 2.8 H (0.55-1.02) mg/dL Est Cr Clr Drug Dosing 10.36 mL/min Estimated GFR (MDRD) 16 (>60) mL/min BUN/Creatinine Ratio 25.7 H (14-18) Glucose 100 (83-115) mg/dL Calcium 9.6 (8.5-10.1) mg/dL Magnesium 2.2 (1.8-2.4) mg/dl Troponin I (0.00-0.056) ng/mL Vitamin D 25-Hydroxy 40 (30-100) ng/mL 09/21/17 Range/Units 07:22 WBC (3.98-10.04) K/mm3 RBC (3.98-5.22) M/mm3 Hgb (11.2-15.7) gm/L Hct (34.1-44.9) % MCV (79.4-94.8) fl MCH (25.6-32.2) pg MCHC (32.2-35.5) g/dl RDW Std Deviation (36.4-46.3) fL Plt Count (182-369) K/mm3 MPV (9.4-12.3) fl Neut % (Auto) (34.0-71.1) % Lymph % (Auto) (19.3-51.7) % Hughes % (Auto) (4.7-12.5) % Eos % (Auto) (0.7-5.8) Baso % (Auto) (0.1-1.2) % Neut # (Auto) (1.56-6.13) K/mm3 Lymph # (Auto) (1.18-3.74) K/mm3 Hughes # (Auto) (0.24-0.36) K/mm3 Eos # (Auto) (0.04-0.36) K/mm3 Baso # (Auto) (0.01-0.08) K/mm3 Sodium (136-145) mEq/L Potassium (3.5-5.1) mEq/L Chloride (98-107) mEq/L Carbon Dioxide (21-32) mEq/L Anion Gap (5-15) BUN (7-18) mg/dL Creatinine (0.55-1.02) mg/dL Est Cr Clr Drug Dosing mL/min Estimated GFR (MDRD) (>60) mL/min BUN/Creatinine Ratio (14-18) Glucose (83-115) mg/dL Calcium (8.5-10.1) mg/dL Magnesium (1.8-2.4) mg/dl Troponin I 0.033 (0.00-0.056) ng/mL Vitamin D 25-Hydroxy (30-100) ng/mL Med Orders - Current: Current Medications Acetaminophen (Tylenol) 650 mg PO Q4H PRN PRN Reason: Pain (Mild 1-3)/fever Hydrocodone Bitart/Acetaminophen ([place] 325-5 Mg) 1 tab PO Q4H PRN PRN Reason: Pain (moderate 4-6) Acyclovir (Zovirax) 400 mg PO BID [facility] Last Admin: 09/21/17 21:32 Dose: 400 mg Albuterol/Ipratropium (Duoneb 3.0-0.5 Mg/3 Ml) 3 ml NEB Q4H PRN PRN Reason: Shortness Of Breath/wheezing Bisacodyl (Dulcolax) 5 mg PO DAILY PRN PRN Reason: Constipation Cholecalciferol (Vitamin D3) 2,000 units PO DAILY REPLACED BY [facility] Last Admin: 09/21/17 09:37 Dose: 2,000 units Clonidine HCl (Catapres) 0.1 mg PO BEDTIME REPLACED BY [facility] Last Admin: 09/21/17 21:33 Dose: 0.1 mg Clonidine HCl (Catapres) 0.2 mg PO DAILY REPLACED BY [facility] Docusate Sodium (Colace) 100 mg PO BID PRN PRN Reason: Constipation Doxazosin Mesylate (Cardura) 16 mg PO BEDTIME REPLACED BY [facility] Last Admin: 09/21/17 21:34 Dose: 16 mg Ferrous Sulfate (Ferrous Sulfate) 325 mg PO WITHBREAKFAST REPLACED BY [facility] Last Admin: 09/22/17 06:06 Dose: 325 mg Furosemide (Lasix) 40 mg PO BID REPLACED BY [facility] Last Admin: 09/21/17 21:34 Dose: 40 mg Hydralazine HCl (Apresoline) 5 mg IVPUSH Q6H PRN PRN Reason: Hypertension Last Admin: 09/22/17 05:17 Dose: 5 mg Promethazine HCl 6.25 mg/ (Sodium Chloride) 50.25 mls @ 100 mls/hr IV Q6H PRN PRN Reason: Nausea/Vomiting Lorazepam (Ativan) 2 mg IVPUSH Q4H PRN PRN Reason: Seizures Lorazepam (Ativan) 0.25 mg IV Q6H PRN PRN Reason: Anxiety Magnesium Sulfate (Pharmacy To Dose - Magnesium Replacement) 0 dose .XX ASDIRECTED PRN PRN Reason: RX TO WATCH MAG LEVELS Metoprolol Tartrate (Lopressor) 5 mg IVPUSH Q4H PRN PRN Reason: Tachycardia Multivitamins (Thera) 1 each PO BEDTIME REPLACED BY [facility] Last Admin: 09/21/17 21:33 Dose: Not Given Nifedipine (Procardia Xl) 15 mg PO BID REPLACED BY [facility] Ondansetron HCl (Zofran) 4 mg IV Q6H PRN PRN Reason: Nausea/Vomiting Pantoprazole Sodium (Protonix) 40 mg PO DAILY@0700 REPLACED BY [facility] Last Admin: 09/22/17 06:06 Dose: 40 mg Cyclophosphamide 25 (Mg) 0 each PO Q2D@0900 REPLACED BY [facility] Dapsone 25 Mg 0 each PO DAILY@1400 REPLACED BY [facility] Last Admin: 09/21/17 15:33 Dose: Not Given Polyethylene Glycol (Miralax) 17 gm PO DAILY PRN PRN Reason: Constipation Potassium Chloride (Pharmacy To Dose - Potassium Replacement) 0 dose .XX ASDIRECTED PRN PRN Reason: RX TO WATCH K LEVELS Prednisone (Prednisone) 30 mg PO WITHBREAKFAST REPLACED BY [facility] Last Admin: 09/22/17 06:06 Dose: 30 mg Senna/Docusate Sodium (Senna Plus) 1 tab PO BID PRN PRN Reason: Constipation Sodium Bicarbonate (Sodium Bicarbonate) 650 mg PO BID REPLACED BY [facility] Last Admin: 09/21/17 21:32 Dose: 650 mg Thiamine HCl (Vitamin B-1) 200 mg IV DAILY REPLACED BY [facility] Last Admin: 09/21/17 09:36 Dose: 200 mg Discontinued Medications Alteplase, Recombinant (Activase) Confirm Administered Dose 100 mg .ROUTE .STK- MED ONE Stop: 09/20/17 10:10 Last Admin: 09/21/17 20:29 Dose: Not Given Clonidine HCl (Catapres) 0.1 mg PO Q12H REPLACED BY [facility] Last Admin: 09/21/17 19:34 Dose: Not Given Clonidine HCl (Catapres) 0.2 mg PO Q12H REPLACED BY [facility] Last Admin: 09/21/17 16:47 Dose: 0.1 mg Furosemide (Lasix) 40 mg PO BID REPLACED BY [facility] Last Admin: 09/20/17 21:30 Dose: 40 mg Hydralazine HCl (Apresoline) 10 mg IVPUSH Q4H PRN PRN Reason: Hypertension Last Admin: 09/21/17 04:20 Dose: 10 mg Hydralazine HCl (Apresoline) 5 mg IVPUSH Q6H PRN PRN Reason: Hypertension Magnesium Sulfate 2 gm/ Premix 50 mls @ 50 mls/hr IV ONETIME STA Stop: 09/20/17 12:40 Last Admin: 09/20/17 11:47 Dose: 50 mls/hr Labetalol HCl (Normodyne) 5 mg IVPUSH Q6H PRN; Protocol PRN Reason: Hypertension Non-Formulary Medication (Alendronate [Fosamax]) 70 mg PO Tu@0600 REPLACED BY [facility] Doxazosin 8 Mg Own (Med) 0 mg PO BEDTIME REPLACED BY [facility] Last Admin: 09/20/17 21:30 Dose: 16 mg Acyclovir 400 Mg (Own Med) 0 mg PO BID REPLACED BY [facility] Last Admin: 09/20/17 21:30 Dose: 400 mg Non-Formulary Medication (Cranberry [Cranberry]) 1 cap PO DAILY REPLACED BY [facility] Sodium Bicarbonate 650 Mg Tab Own Med 0 each PO BID REPLACED BY [facility] Last Admin: 09/21/17 09:39 Dose: 1 each Prednisone 20 Mg Tab (Own Med) 0 each PO WITHBREAKFAST REPLACED BY [facility] Last Admin: 09/21/17 09:41 Dose: 1.5 each Doxazosin 8 Mg Own (Med) 0 each PO BEDTIME REPLACED BY [facility] Acyclovir 400 Mg (Own Med) 0 each PO BID REPLACED BY [facility] Last Admin: 09/21/17 09:37 Dose: Not Given Furosemide 40 Mg Tab (Own Meds) 0 each PO BID REPLACED BY [facility] Last Admin: 09/21/17 09:39 Dose: Not Given Potassium Chloride (Klor-Con M20) 40 meq PO Q4H REPLACED BY [facility] Stop: 09/20/17 22:01 Last Admin: 09/20/17 21:33 Dose: 40 meq Prednisone (Prednisone) 30 mg PO WITHBREAKFAST REPLACED BY [facility] Last Admin: 09/21/17 19:33 Dose: Not Given Sodium Bicarbonate (Sodium Bicarbonate) 650 mg PO BID REPLACED BY [facility] Last Admin: 09/20/17 21:30 Dose: 650 mg - Exam General: Alert, Cooperative, No Acute Distress HEENT: Pupils Equal, Pupils Reactive, Mucous Membr. Moist/[place] Neck: Supple, Trachea Midline, No JVD Lungs: Clear to Auscultation, Normal Respiratory Effort, Decreased Breath Sounds Cardiovascular: Regular Rate, Regular Rhythm GI/Abdominal Exam: Normal Bowel Sounds, Soft, Non-Tender, No Organomegaly, No Distention, No Abnormal Bruit (Female) Exam: Deferred Back Exam: Normal Inspection, Decreased Range of Motion, Other (kyphoscoliosis) Extremities: Normal Inspection, Normal Range of Motion, Non-Tender, No Pedal Edema, Normal Capillary Refill Peripheral Pulses: 2+: Dorsalis Pedis (L), Dorsalis Pedis (R) Skin: Warm, Dry, Intact Neurological: No New Focal Deficit Psy/Mental Status: Alert, Normal Mood. No: Normal Affect, Anxious, Agitated, Hallucinations - Problem List Review Problem List Initiated/Reviewed/Updated: Yes - My Orders Last 24 Hours: My Active Orders 09/21/17 07:03 Neuro Check [RC] PRN 09/21/17 07:27 Consult to Speech Language Pathology [PROGRAM ADVOCATE Evaluation and Treatment] [CONS] Routine 09/21/17 08:15 Ferrous Sulfate 325 mg PO WITHBREAKFAST 09/21/17 08:30 Pantoprazole [ProTONIX] 40 mg PO DAILY@0700 09/21/17 09:00 Cholecalciferol (Vitamin D3) [Vitamin D3] 2,000 units PO DAILY 09/21/17 14:00 Patient's Own Medication [Ptom] 0 each PO DAILY@1400 09/21/17 16:03 Patient Status [ADT] Routine 09/21/17 20:40 Resuscitation Status Routine 09/21/17 21:00 Acyclovir [Zovirax] 400 mg PO BID Doxazosin [Cardura] 16 mg PO BEDTIME Furosemide [Lasix] 40 mg PO BID Sodium Bicarbonate 650 mg PO BID cloNIDine [Catapres] 0.1 mg PO BEDTIME 09/22/17 00:11 hydrALAZINE [Apresoline] 5 mg IVPUSH Q6H PRN 09/22/17 07:00 predniSONE 30 mg PO WITHBREAKFAST 09/22/17 09:00 NIFEdipine [Procardia XL] 15 mg PO BID Patient's Own Medication [Ptom] 0 each PO Q2D@0900 cloNIDine [Catapres] 0.2 mg PO DAILY - Plan Plan:: Assessment/Plan: 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 Low this AM and informed him we (the hospital) do not have any other good medications to offer her here if hydralazine is contraindicated. - He recommended to start minoxidil 2.5 mg po BID while we taper of off clonidine; however, daughter wants patient to start on it after she is off clonidine completely--> will wait for her input - Dr. Low wants her pressure to be in the 150s-160s systolic - We'll discuss PRN low dose hydralazine 5 mg IVP Q6H for BP > 180/90 mmHg if acceptable to them (we (hospital) do not have anything else that would quickly drop her pressure if she is in trouble: BPs in the stroke range) Transient Confusion/Delirium - 2/2 Drug Encephalopathy (Clonidine) - No obvious neurological deficits - CT scan/CXR: No acute abnormality - UA and Troponin x 2 both negative - She is baseline but disorientated x 3: Time: July, Place: Don't know where she is at, Person: Do not know, even with a clue provided - PROGRAM ADVOCATE for cognitive eval: Suggestive of Early Dementia - MMSE Score 14: Severe Cognitive Impairment - Vit D level normal Generalized Weakness - Multi-factorial: Anemia, CKD, Hypogmagnesemia, Osteoporosis, Diffuse OA and Medications Side effects - Continue PT/OT - Vit D level-normal - Thyroid Panel-Elevated TSH 4.223 and normal FT4 0.90 - Folic Acid-normal - B12 level-considerably elevated at 1255 Severe Memory Impairment - Questionable Early Dementia - Hold off starting her on Aricept/Namenda - Would like for her to be completely off Clonidine Resolved: S/p Hypomagnesemia - Mg 1.6 --> 2.2 - Likely 2/2 inadequate intake - Replete and monitor Chronic: Impaired Vision HTN GERD 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 LOS > 96hrs pending placement likely after the holiday.
[2017-09-22] MEDS ORDERED: NIFEdipine 30 MG Tab.ER PO SCH (09:00)
[2017-09-22] MEDS ORDERED: Minoxidil 2.5 MG Tab PO STA (09:12)
[2017-09-22] MEDS: Acyclovir 200 MG Cap PO SCH ×2 (09:35→21:30)
[2017-09-22] MEDS: Cholecalciferol (Vitamin D3) 1,000 Unit Tab PO SCH (09:35)
[2017-09-22] MEDS: Sodium Bicarbonate 650 MG Tab PO SCH ×2 (09:35→21:31)
[2017-09-22] MEDS: cloNIDine 0.1 MG Tab PO SCH ×2 (09:36→21:38)
[2017-09-22] MEDS: Thiamine 200 MG/2 ML MDV IV SCH (09:36)
[2017-09-22] MEDS: Furosemide 40 MG Tab PO SCH ×2 (09:36→21:37)
[2017-09-22] MEDS: CYCLOPHOSPHAMIDE 25 MG PO SCH (14:21)
[2017-09-22] MEDS: Multivitamins,Therapeutic Tab PO SCH (21:29)
[2017-09-22] MEDS: Doxazosin 4 MG Tab PO SCH (21:32)
[2017-09-22] MEDS: MINOXIDIL 2.5 MG PO SCH (21:39)
[2017-09-22] MEDS: hydrALAZINE 20 MG/ML SDV IVPUSH PRN (23:38)
[2017-09-23] MEDS: Ferrous Sulfate 325 MG Tab PO SCH (06:00)
[2017-09-23] MEDS: Pantoprazole 40 MG Tab.CR PO SCH (06:00)
[2017-09-23] MEDS: predniSONE 10 MG Tab PO SCH (06:00)
--- NOTE | 2017-09-23 07:40 | PCM.PN ---
- General Info Date of Service: 09/23/17 Admission Dx/Problem (Free Text): Admission Diagnosis/Problem Admission Diagnosis/Problem Lethargy Subjective Update: Follow Up Functional Status: Reports: Pain Controlled, Tolerating Diet, Ambulating, Urinating - Review of Systems General: Reports: Weakness, Fatigue. Denies: Fever, Malaise, Chills HEENT: Reports: No Symptoms Pulmonary: Denies: Shortness of Breath Cardiovascular: Denies: Chest Pain, Dyspnea on Exertion, Lightheadedness Gastrointestinal: Denies: Abdominal Pain, Nausea, Vomiting Genitourinary: Reports: No Symptoms Musculoskeletal: Reports: No Symptoms Skin: Denies: Cyanosis, Mottled, Diaphoresis, Other Neurological: Denies: Dizziness, Numbness, Difficulty Walking, Gait Disturbance Psychiatric: Reports: Confusion. Denies: Depression, Anxiety, Agitation, Hallucinations Systems Review Comment:: No overnight or acute issues. She slept good and has no complaints this morning. Her blood pressure remains labile. - Patient Data Vitals - Most Recent: Last Vital Signs Temp 37.1 C 09/23/17 00:20 Pulse 72 09/23/17 00:19 Resp 16 09/23/17 00:20 BP 141/91 H 09/23/17 00:19 Pulse Ox 95 09/23/17 00:19 Weight - Most Recent: 51.075 kg I&O - Last 24 Hours: Intake & Output 09/22/17 09/23/17 09/23/17 22:59 06:59 14:59 Intake Total 700 120 Output Total 150 Balance 700 -30 Med Orders - Current: Current Medications Acetaminophen (Tylenol) 650 mg PO Q4H PRN PRN Reason: Pain (Mild 1-3)/fever Hydrocodone Bitart/Acetaminophen ([place] 325-5 Mg) 1 tab PO Q4H PRN PRN Reason: Pain (moderate 4-6) Acyclovir (Zovirax) 400 mg PO BID [facility] Last Admin: 09/22/17 21:30 Dose: 400 mg Albuterol/Ipratropium (Duoneb 3.0-0.5 Mg/3 Ml) 3 ml NEB Q4H PRN PRN Reason: Shortness Of Breath/wheezing Bisacodyl (Dulcolax) 5 mg PO DAILY PRN PRN Reason: Constipation Cholecalciferol (Vitamin D3) 2,000 units PO DAILY [facility] Last Admin: 09/22/17 09:35 Dose: 2,000 units Clonidine HCl (Catapres) 0.1 mg PO BEDTIME [facility] Stop: 09/28/17 22:00 Last Admin: 09/22/17 21:38 Dose: 0.1 mg Clonidine HCl (Catapres) 0.2 mg PO DAILY [facility] Last Admin: 09/22/17 09:36 Dose: 0.2 mg Clonidine HCl (Catapres) 0.1 mg PO DAILY [facility] Stop: 10/01/17 10:00 Docusate Sodium (Colace) 100 mg PO BID PRN PRN Reason: Constipation Doxazosin Mesylate (Cardura) 16 mg PO BEDTIME [facility] Last Admin: 09/22/17 21:32 Dose: 16 mg Ferrous Sulfate (Ferrous Sulfate) 325 mg PO WITHBREAKFAST [facility] Last Admin: 09/23/17 06:00 Dose: 325 mg Furosemide (Lasix) 40 mg PO BID [facility] Last Admin: 09/22/17 21:37 Dose: 40 mg Hydralazine HCl (Apresoline) 5 mg IVPUSH Q6H PRN PRN Reason: Hypertension Last Admin: 09/22/17 23:38 Dose: 5 mg Promethazine HCl 6.25 mg/ (Sodium Chloride) 50.25 mls @ 100 mls/hr IV Q6H PRN PRN Reason: Nausea/Vomiting Lorazepam (Ativan) 2 mg IVPUSH Q4H PRN PRN Reason: Seizures Lorazepam (Ativan) 0.25 mg IV Q6H PRN PRN Reason: Anxiety Magnesium Sulfate (Pharmacy To Dose - Magnesium Replacement) 0 dose .XX ASDIRECTED PRN PRN Reason: RX TO WATCH MAG LEVELS Metoprolol Tartrate (Lopressor) 5 mg IVPUSH Q4H PRN PRN Reason: Tachycardia Minoxidil (Loniten) 2.5 mg PO BID [facility] Last Admin: 09/22/17 21:39 Dose: 2.5 mg Multivitamins (Thera) 1 each PO BEDTIME [facility] Last Admin: 09/22/17 21:29 Dose: 1 each Ondansetron HCl (Zofran) 4 mg IV Q6H PRN PRN Reason: Nausea/Vomiting Pantoprazole Sodium (Protonix) 40 mg PO DAILY@0700 [facility] Last Admin: 09/23/17 06:00 Dose: 40 mg Cyclophosphamide 25 (Mg) 0 each PO Q2D@0900 [facility] Last Admin: 09/22/17 14:21 Dose: Not Given Dapsone 25 Mg 0 each PO DAILY@1400 [facility] Last Admin: 09/22/17 14:21 Dose: Not Given Polyethylene Glycol (Miralax) 17 gm PO DAILY PRN PRN Reason: Constipation Potassium Chloride (Pharmacy To Dose - Potassium Replacement) 0 dose .XX ASDIRECTED PRN PRN Reason: RX TO WATCH K LEVELS Prednisone (Prednisone) 30 mg PO WITHBREAKFAST [facility] Last Admin: 09/23/17 06:00 Dose: 30 mg Senna/Docusate Sodium (Senna Plus) 1 tab PO BID PRN PRN Reason: Constipation Sodium Bicarbonate (Sodium Bicarbonate) 650 mg PO BID [facility] Last Admin: 09/22/17 21:31 Dose: 650 mg Thiamine HCl (Vitamin B-1) 200 mg IV DAILY [facility] Last Admin: 09/22/17 09:36 Dose: 200 mg Discontinued Medications Alteplase, Recombinant (Activase) Confirm Administered Dose 100 mg .ROUTE .STK- MED ONE Stop: 09/20/17 10:10 Last Admin: 09/21/17 20:29 Dose: Not Given Clonidine HCl (Catapres) 0.1 mg PO Q12H [facility] Last Admin: 09/21/17 19:34 Dose: Not Given Clonidine HCl (Catapres) 0.2 mg PO Q12H [facility] Last Admin: 09/21/17 16:47 Dose: 0.1 mg Furosemide (Lasix) 40 mg PO BID [facility] Last Admin: 09/20/17 21:30 Dose: 40 mg Hydralazine HCl (Apresoline) 10 mg IVPUSH Q4H PRN PRN Reason: Hypertension Last Admin: 09/21/17 04:20 Dose: 10 mg Hydralazine HCl (Apresoline) 5 mg IVPUSH Q6H PRN PRN Reason: Hypertension Hydralazine HCl (Apresoline) 5 mg IVPUSH Q6H PRN PRN Reason: Hypertension Last Admin: 09/22/17 05:17 Dose: 5 mg Magnesium Sulfate 2 gm/ Premix 50 mls @ 50 mls/hr IV ONETIME STA Stop: 09/20/17 12:40 Last Admin: 05/22/18 11:47 Dose: 50 mls/hr Labetalol HCl (Normodyne) 5 mg IVPUSH Q6H PRN; Protocol PRN Reason: Hypertension Minoxidil (Loniten) 2.5 mg PO NOW [facility] Stop: 09/22/17 09:13 Last Admin: 09/22/17 11:01 Dose: Not Given Nifedipine (Procardia Xl) 15 mg PO BID [facility] Last Admin: 09/22/17 17:15 Dose: Not Given Non-Formulary Medication (Alendronate [Fosamax]) 70 mg PO Tu@0600 [facility] Doxazosin 8 Mg Own (Med) 0 mg PO BEDTIME [facility] Last Admin: 09/20/17 21:30 Dose: 16 mg Acyclovir 400 Mg (Own Med) 0 mg PO BID [facility] Last Admin: 09/20/17 21:30 Dose: 400 mg Non-Formulary Medication (Cranberry [Cranberry]) 1 cap PO DAILY [facility] Sodium Bicarbonate 650 Mg Tab Own Med 0 each PO BID [facility] Last Admin: 09/21/17 09:39 Dose: 1 each Prednisone 20 Mg Tab (Own Med) 0 each PO WITHBREAKFAST [facility] Last Admin: 09/21/17 09:41 Dose: 1.5 each Doxazosin 8 Mg Own (Med) 0 each PO BEDTIME [facility] Acyclovir 400 Mg (Own Med) 0 each PO BID [facility] Last Admin: 09/21/17 09:37 Dose: Not Given Furosemide 40 Mg Tab (Own Meds) 0 each PO BID [facility] Last Admin: 09/21/17 09:39 Dose: Not Given Potassium Chloride (Klor-Con M20) 40 meq PO Q4H [facility] Stop: 09/20/17 22:01 Last Admin: 09/20/17 21:33 Dose: 40 meq Prednisone (Prednisone) 30 mg PO WITHBREAKFAST [facility] Last Admin: 09/21/17 19:33 Dose: Not Given Sodium Bicarbonate (Sodium Bicarbonate) 650 mg PO BID [facility] Last Admin: 09/20/17 21:30 Dose: 650 mg - Exam General: Alert, Cooperative, No Acute Distress HEENT: Pupils Equal, Pupils Reactive, Mucous Membr. Moist/[place] Neck: Supple, Trachea Midline, No JVD, No Thyromegaly Lungs: Clear to Auscultation, Normal Respiratory Effort Cardiovascular: Regular Rate, Regular Rhythm GI/Abdominal Exam: Normal Bowel Sounds, Soft, Non-Tender, No Organomegaly, No Distention, No Abnormal Bruit (Female) Exam: Deferred Back Exam: Normal Inspection, Decreased Range of Motion, Other (kyphoscoliosis) Extremities: Normal Inspection, Normal Range of Motion, Non-Tender, No Pedal Edema, Normal Capillary Refill Peripheral Pulses: 2+: Dorsalis Pedis (L), Dorsalis Pedis (R) Skin: Warm, Dry, Intact Neurological: No New Focal Deficit Psy/Mental Status: Alert, Normal Affect, Normal Mood - Problem List Review Problem List Initiated/Reviewed/Updated: Yes - My Orders Last 24 Hours: My Active Orders 09/22/17 07:00 predniSONE 30 mg PO WITHBREAKFAST 09/22/17 09:00 Patient's Own Medication [Ptom] 0 each PO Q2D@0900 cloNIDine [Catapres] 0.2 mg PO DAILY 09/22/17 18:10 hydrALAZINE [Apresoline] 5 mg IVPUSH Q6H PRN 09/22/17 21:00 Minoxidil [Loniten] 2.5 mg PO BID 09/25/17 09:00 cloNIDine [Catapres] 0.1 mg PO DAILY - Plan Plan:: Assessment/Plan: 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 Low this AM and informed him we (the hospital) do not have any other good medications to offer her here if hydralazine is contraindicated - Continue Minoxidil 2.5 mg po BID while we taper off clonidine--> pharmacy will be in charge - Dr. Low wants her pressure to be in the 150s-160s systolic - Continue PRN low dose hydralazine 5 mg IVP Q6H for BP > 180/90 mmHg Transient Confusion/Delirium - 2/2 Drug Encephalopathy (Clonidine) - No obvious neurological deficits - CT scan/CXR: No acute abnormality - UA and Troponin x 2 both negative - She is baseline but disorientated x 3: Time: July, Place: Don't know where she is at, Person: Do not know, even with a clue provided - BUSINESS COORDINATOR for cognitive eval: Suggestive of Early Dementia - MMSE Score 14: Severe Cognitive Impairment - Vit D level normal Generalized Weakness - Multi-factorial: Anemia, CKD, Hypogmagnesemia, Osteoporosis, Diffuse OA and Medications Side effects - Continue PT/OT - Vit D level-normal - Thyroid Panel-Elevated TSH 4.223 and normal FT4 0.90 - Folic Acid-normal - B12 level-considerably elevated at 1255 Severe Memory Impairment - Questionable Early Dementia - Hold off starting her on Aricept/Namenda - Would like for her to be completely off Clonidine Resolved: S/p Hypomagnesemia - Mg 1.6 --> 2.2 - Likely 2/2 inadequate intake - Replete and monitor Chronic: Impaired Vision HTN GERD 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 LOS > 96hrs pending placement likely after the holiday.
[2017-09-23] MEDS: Furosemide 40 MG Tab PO SCH ×2 (09:32→13:32)
[2017-09-23] MEDS: Sodium Bicarbonate 650 MG Tab PO SCH ×2 (09:32→22:06)
[2017-09-23] MEDS: Cholecalciferol (Vitamin D3) 1,000 Unit Tab PO SCH (09:32)
[2017-09-23] MEDS: Acyclovir 200 MG Cap PO SCH ×2 (09:33→22:05)
[2017-09-23] MEDS: MINOXIDIL 2.5 MG PO SCH (09:36)
[2017-09-23] MEDS: Thiamine 200 MG/2 ML MDV IV SCH (09:39)
[2017-09-23] MEDS: cloNIDine 0.1 MG Tab PO SCH ×2 (09:56→22:05)
[2017-09-23] MEDS: Multivitamins,Therapeutic Tab PO SCH (22:06)
[2017-09-23] MEDS: Doxazosin 4 MG Tab PO SCH (22:06)
[2017-09-23] MEDS: Minoxidil 2.5 MG Tab PO SCH (22:07)
[2017-09-24] MEDS: Pantoprazole 40 MG Tab.CR PO SCH (06:14)
[2017-09-24] MEDS: Furosemide 40 MG Tab PO SCH ×2 (06:15→14:52)
[2017-09-24] MEDS: Minoxidil 2.5 MG Tab PO SCH ×2 (09:16→20:34)
[2017-09-24] MEDS: Thiamine 200 MG/2 ML MDV IV SCH (09:16)
[2017-09-24] MEDS: cloNIDine 0.1 MG Tab PO SCH ×2 (09:16→20:38)
[2017-09-24] MEDS: Sodium Bicarbonate 650 MG Tab PO SCH ×2 (09:16→20:34)
[2017-09-24] MEDS: Acyclovir 200 MG Cap PO SCH ×2 (09:17→20:33)
[2017-09-24] MEDS: Cholecalciferol (Vitamin D3) 1,000 Unit Tab PO SCH (09:17)
[2017-09-24] MEDS: predniSONE 10 MG Tab PO SCH (09:17)
[2017-09-24] MEDS: Ferrous Sulfate 325 MG Tab PO SCH (09:17)
[2017-09-24] MEDS: CYCLOPHOSPHAMIDE 25 MG PO SCH (09:18)
--- NOTE | 2017-09-24 10:06 | PCM.PN ---
- General Info Date of Service: 09/24/17 Subjective Update: Dizzy, lightheaded after clonidine and minoxidil given this am; spoke with daughter who was at the bedside. Clarification regarding HTN meds was achieved. Functional Status: Reports: Tolerating Diet - Review of Systems General: Reports: Weakness HEENT: Reports: No Symptoms Pulmonary: Reports: No Symptoms Cardiovascular: Reports: Lightheadedness Gastrointestinal: Reports: No Symptoms Genitourinary: Reports: No Symptoms Musculoskeletal: Reports: No Symptoms Skin: Reports: No Symptoms Neurological: Reports: Dizziness Psychiatric: Reports: No Symptoms - Patient Data Vitals - Most Recent: Last Vital Signs Temp 36.9 C 09/24/17 09:01 Pulse 66 09/24/17 09:01 Resp 14 09/24/17 09:01 BP 133/67 09/24/17 09:16 Pulse Ox 98 09/24/17 09:01 Weight - Most Recent: 46.584 kg I&O - Last 24 Hours: Intake & Output 09/23/17 09/24/17 09/24/17 22:59 06:59 14:59 Intake Total 650 120 Balance 650 120 Med Orders - Current: Current Medications Acetaminophen (Tylenol) 650 mg PO Q4H PRN PRN Reason: Pain (Mild 1-3)/fever Hydrocodone Bitart/Acetaminophen ([place] 325-5 Mg) 1 tab PO Q4H PRN PRN Reason: Pain (moderate 4-6) Acyclovir (Zovirax) 400 mg PO BID [facility] Last Admin: 09/24/17 09:17 Dose: 400 mg Albuterol/Ipratropium (Duoneb 3.0-0.5 Mg/3 Ml) 3 ml NEB Q4H PRN PRN Reason: Shortness Of Breath/wheezing Bisacodyl (Dulcolax) 5 mg PO DAILY PRN PRN Reason: Constipation Cholecalciferol (Vitamin D3) 2,000 units PO DAILY [facility] Last Admin: 09/24/17 09:17 Dose: 2,000 units Clonidine HCl (Catapres) 0.1 mg PO BEDTIME [facility] Stop: 09/28/17 22:00 Last Admin: 09/23/17 22:05 Dose: 0.1 mg Clonidine HCl (Catapres) 0.2 mg PO DAILY [facility] Last Admin: 09/24/17 09:16 Dose: 0.2 mg Clonidine HCl (Catapres) 0.1 mg PO DAILY [facility] Stop: 10/01/17 10:00 Docusate Sodium (Colace) 100 mg PO BID PRN PRN Reason: Constipation Doxazosin Mesylate (Cardura) 16 mg PO BEDTIME [facility] Last Admin: 09/23/17 22:06 Dose: 16 mg Ferrous Sulfate (Ferrous Sulfate) 325 mg PO DAILY@0800 [facility] Last Admin: 09/24/17 09:17 Dose: 325 mg Furosemide (Lasix) 40 mg PO BIDDIURETIC [facility] Last Admin: 09/24/17 06:15 Dose: 40 mg Hydralazine HCl (Apresoline) 5 mg IVPUSH Q6H PRN PRN Reason: Hypertension Last Admin: 09/22/17 23:38 Dose: 5 mg Promethazine HCl 6.25 mg/ (Sodium Chloride) 50.25 mls @ 100 mls/hr IV Q6H PRN PRN Reason: Nausea/Vomiting Lorazepam (Ativan) 2 mg IVPUSH Q4H PRN PRN Reason: Seizures Lorazepam (Ativan) 0.25 mg IV Q6H PRN PRN Reason: Anxiety Magnesium Sulfate (Pharmacy To Dose - Magnesium Replacement) 0 dose .XX ASDIRECTED PRN PRN Reason: RX TO WATCH MAG LEVELS Metoprolol Tartrate (Lopressor) 5 mg IVPUSH Q4H PRN PRN Reason: Tachycardia Minoxidil (Loniten) 2.5 mg PO BID [facility] Last Admin: 09/24/17 09:16 Dose: 2.5 mg Multivitamins (Thera) 1 each PO BEDTIME [facility] Last Admin: 09/23/17 22:06 Dose: 1 each Ondansetron HCl (Zofran) 4 mg IV Q6H PRN PRN Reason: Nausea/Vomiting Pantoprazole Sodium (Protonix) 40 mg PO DAILY@0700 [facility] Last Admin: 09/24/17 06:14 Dose: 40 mg Cyclophosphamide 25 (Mg) 0 each PO Q2D@0900 [facility] Last Admin: 09/24/17 09:18 Dose: Not Given Dapsone 25 Mg 0 each PO DAILY@1400 [facility] Last Admin: 09/23/17 13:32 Dose: Not Given Polyethylene Glycol (Miralax) 17 gm PO DAILY PRN PRN Reason: Constipation Potassium Chloride (Pharmacy To Dose - Potassium Replacement) 0 dose .XX ASDIRECTED PRN PRN Reason: RX TO WATCH K LEVELS Prednisone (Prednisone) 30 mg PO DAILY@0800 [facility] Last Admin: 09/24/17 09:17 Dose: 30 mg Senna/Docusate Sodium (Senna Plus) 1 tab PO BID PRN PRN Reason: Constipation Sodium Bicarbonate (Sodium Bicarbonate) 650 mg PO BID [facility] Last Admin: 09/24/17 09:16 Dose: 650 mg Thiamine HCl (Vitamin B-1) 200 mg IV DAILY [facility] Last Admin: 09/24/17 09:16 Dose: 200 mg Discontinued Medications Alteplase, Recombinant (Activase) Confirm Administered Dose 100 mg .ROUTE .STK- MED ONE Stop: 09/20/17 10:10 Last Admin: 09/21/17 20:29 Dose: Not Given Clonidine HCl (Catapres) 0.1 mg PO Q12H [facility] Last Admin: 09/21/17 19:34 Dose: Not Given Clonidine HCl (Catapres) 0.2 mg PO Q12H [facility] Last Admin: 09/21/17 16:47 Dose: 0.1 mg Ferrous Sulfate (Ferrous Sulfate) 325 mg PO WITHBREAKFAST [facility] Last Admin: 09/23/17 06:00 Dose: 325 mg Furosemide (Lasix) 40 mg PO BID [facility] Last Admin: 09/20/17 21:30 Dose: 40 mg Furosemide (Lasix) 40 mg PO BID [facility] Last Admin: 09/23/17 09:32 Dose: 40 mg Hydralazine HCl (Apresoline) 10 mg IVPUSH Q4H PRN PRN Reason: Hypertension Last Admin: 09/21/17 04:20 Dose: 10 mg Hydralazine HCl (Apresoline) 5 mg IVPUSH Q6H PRN PRN Reason: Hypertension Hydralazine HCl (Apresoline) 5 mg IVPUSH Q6H PRN PRN Reason: Hypertension Last Admin: 09/22/17 05:17 Dose: 5 mg Magnesium Sulfate 2 gm/ Premix 50 mls @ 50 mls/hr IV ONETIME [facility] Stop: 09/20/17 12:40 Last Admin: 09/20/17 11:47 Dose: 50 mls/hr Labetalol HCl (Normodyne) 5 mg IVPUSH Q6H PRN; Protocol PRN Reason: Hypertension Minoxidil (Loniten) 2.5 mg PO BID [facility] Last Admin: 09/23/17 09:36 Dose: 2.5 mg Minoxidil (Loniten) 2.5 mg PO NOW [facility] Stop: 09/22/17 09:13 Last Admin: 09/22/17 11:01 Dose: Not Given Nifedipine (Procardia Xl) 15 mg PO BID [facility] Last Admin: 09/22/17 17:15 Dose: Not Given Non-Formulary Medication (Alendronate [Fosamax]) 70 mg PO Tu@0600 [facility] Doxazosin 8 Mg Own (Med) 0 mg PO BEDTIME [facility] Last Admin: 09/20/17 21:30 Dose: 16 mg Acyclovir 400 Mg (Own Med) 0 mg PO BID [facility] Last Admin: 09/20/17 21:30 Dose: 400 mg Non-Formulary Medication (Cranberry [Cranberry]) 1 cap PO DAILY [facility] Sodium Bicarbonate 650 Mg Tab Own Med 0 each PO BID [facility] Last Admin: 09/21/17 09:39 Dose: 1 each Prednisone 20 Mg Tab (Own Med) 0 each PO WITHBREAKFAST [facility] Last Admin: 09/21/17 09:41 Dose: 1.5 each Doxazosin 8 Mg Own (Med) 0 each PO BEDTIME [facility] Acyclovir 400 Mg (Own Med) 0 each PO BID [facility] Last Admin: 09/21/17 09:37 Dose: Not Given Furosemide 40 Mg Tab (Own Meds) 0 each PO BID [facility] Last Admin: 09/21/17 09:39 Dose: Not Given Potassium Chloride (Klor-Con M20) 40 meq PO Q4H [facility] Stop: 09/20/17 22:01 Last Admin: 09/20/17 21:33 Dose: 40 meq Prednisone (Prednisone) 30 mg PO WITHBREAKFAST [facility] Last Admin: 09/21/17 19:33 Dose: Not Given Prednisone (Prednisone) 30 mg PO WITHBREAKFAST [facility] Last Admin: 09/23/17 06:00 Dose: 30 mg Sodium Bicarbonate (Sodium Bicarbonate) 650 mg PO BID [facility] Last Admin: 09/20/17 21:30 Dose: 650 mg - Exam Quality Assessment: DVT Prophylaxis General: Lethargic HEENT: Pupils Equal, Pupils Reactive Neck: Trachea Midline Lungs: Normal Respiratory Effort Cardiovascular: Regular Rate, Regular Rhythm GI/Abdominal Exam: Normal Bowel Sounds, Soft, Non-Tender, No Organomegaly, No Distention (Female) Exam: Deferred Back Exam: Normal Inspection Extremities: Normal Inspection Skin: Warm Neurological: No New Focal Deficit Psy/Mental Status: Other (see above; currently in Trendelenburg) - Problem List Review Problem List Initiated/Reviewed/Updated: Yes - Plan Plan:: Assessment/Plan: 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 Low this AM and informed him we (the hospital) do not have any other good medications to offer her here if hydralazine is contraindicated - Continue Minoxidil 2.5 mg po BID while we taper off clonidine--> pharmacy will be in charge - Dr. Low wants her pressure to be in the 150s-160s systolic - Continue PRN low dose hydralazine 5 mg IVP Q6H for BP > 180/90 mmHg Transient Confusion/Delirium - 2/2 Drug Encephalopathy (Clonidine) - No obvious neurological deficits - CT scan/CXR: No acute abnormality - UA and Troponin x 2 both negative - She is baseline but disorientated x 3: Time: July, Place: Don't know where she is at, Person: Do not know, even with a clue provided - [employer] for cognitive eval: Suggestive of Early Dementia - MMSE Score 14: Severe Cognitive Impairment - Vit D level normal Generalized Weakness - Multi-factorial: Anemia, CKD, Hypogmagnesemia, Osteoporosis, Diffuse OA and Medications Side effects - Continue PT/OT - Vit D level-normal - Thyroid Panel-Elevated TSH 4.223 and normal FT4 0.90 - Folic Acid-normal - B12 level-considerably elevated at 1255 Severe Memory Impairment - Questionable Early Dementia - Hold off starting her on Aricept/Namenda - Would like for her to be completely off Clonidine Resolved: S/p Hypomagnesemia - Mg 1.6 --> 2.2 - Likely 2/2 inadequate intake - Replete and monitor Chronic: Impaired Vision HTN GERD 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 LOS > 96hrs pending placement likely after the holiday.
[2017-09-24] MEDS ORDERED: Sodium Chloride 0.9% 250 ML ONE (13:19)
[2017-09-24] MEDS ORDERED: Sodium Chloride 0.9% 250 ML IV ONE (13:30)
[2017-09-24] MEDS: Multivitamins,Therapeutic Tab PO SCH (20:34)
[2017-09-24] MEDS: Doxazosin 4 MG Tab PO SCH (20:40)
[2017-09-25] MEDS: Pantoprazole 40 MG Tab.CR PO SCH (06:11)
[2017-09-25] MEDS: Furosemide 40 MG Tab PO SCH ×2 (06:11→14:42)
[2017-09-25] MEDS: Ferrous Sulfate 325 MG Tab PO SCH (09:45)
[2017-09-25] MEDS: Cholecalciferol (Vitamin D3) 1,000 Unit Tab PO SCH (09:59)
[2017-09-25] MEDS: Acyclovir 200 MG Cap PO SCH ×2 (09:59→20:44)
[2017-09-25] MEDS: Thiamine 200 MG/2 ML MDV IV SCH (09:59)
[2017-09-25] MEDS: predniSONE 10 MG Tab PO SCH (09:59)
[2017-09-25] MEDS: cloNIDine 0.1 MG Tab PO SCH (10:00)
[2017-09-25] MEDS: Sodium Bicarbonate 650 MG Tab PO SCH ×2 (10:00→20:39)
[2017-09-25] MEDS: Minoxidil 2.5 MG Tab PO SCH ×3 (10:39→20:47)
--- NOTE | 2017-09-25 11:33 | PCM.PN ---
- General Info Date of Service: 09/25/17 Subjective Update: Improved activity level, more alert; clonidine taper will be continued with adjustment of time regimen. Functional Status: Reports: Pain Controlled, Tolerating Diet, Ambulating, Urinating - Review of Systems General: Reports: Weakness HEENT: Reports: No Symptoms Pulmonary: Reports: No Symptoms Cardiovascular: Reports: No Symptoms Gastrointestinal: Reports: No Symptoms Genitourinary: Reports: No Symptoms Musculoskeletal: Reports: No Symptoms Skin: Reports: No Symptoms Neurological: Reports: Confusion, Dizziness (no), Difficulty Walking (no), Weakness (no) Psychiatric: Reports: No Symptoms - Patient Data Vitals - Most Recent: Last Vital Signs Temp 37.1 C 09/25/17 04:00 Pulse 69 09/25/17 04:00 Resp 16 09/25/17 04:00 BP 155/68 H 09/25/17 10:00 Pulse Ox 98 09/25/17 04:00 Weight - Most Recent: 51.347 kg I&O - Last 24 Hours: Intake & Output 09/24/17 09/25/17 09/25/17 22:59 06:59 14:59 Intake Total 200 450 Balance 200 450 Med Orders - Current: Current Medications Acetaminophen (Tylenol) 650 mg PO Q4H PRN PRN Reason: Pain (Mild 1-3)/fever Hydrocodone Bitart/Acetaminophen ([place] 325-5 Mg) 1 tab PO Q4H PRN PRN Reason: Pain (moderate 4-6) Acyclovir (Zovirax) 400 mg PO BID [facility] Last Admin: 09/25/17 09:59 Dose: 400 mg Albuterol/Ipratropium (Duoneb 3.0-0.5 Mg/3 Ml) 3 ml NEB Q4H PRN PRN Reason: Shortness Of Breath/wheezing Bisacodyl (Dulcolax) 5 mg PO DAILY PRN PRN Reason: Constipation Last Admin: 09/25/17 06:11 Dose: 5 mg Cholecalciferol (Vitamin D3) 2,000 units PO DAILY [facility] Last Admin: 09/25/17 09:59 Dose: 2,000 units Clonidine HCl (Catapres) 0.1 mg PO DAILY [facility] Stop: 10/01/17 10:00 Last Admin: 09/25/17 10:00 Dose: 0.1 mg Clonidine HCl (Catapres) 0.1 mg PO DAILY@1800 [facility] Docusate Sodium (Colace) 100 mg PO BID PRN PRN Reason: Constipation Doxazosin Mesylate (Cardura) 16 mg PO BEDTIME [facility] Last Admin: 09/24/17 20:40 Dose: Not Given Ferrous Sulfate (Ferrous Sulfate) 325 mg PO DAILY@0800 [facility] Last Admin: 09/24/17 09:17 Dose: 325 mg Furosemide (Lasix) 40 mg PO BIDDIURETIC [facility] Last Admin: 09/25/17 06:11 Dose: 40 mg Hydralazine HCl (Apresoline) 5 mg IVPUSH Q6H PRN PRN Reason: Hypertension Last Admin: 09/22/17 23:38 Dose: 5 mg Promethazine HCl 6.25 mg/ (Sodium Chloride) 50.25 mls @ 100 mls/hr IV Q6H PRN PRN Reason: Nausea/Vomiting Lorazepam (Ativan) 2 mg IVPUSH Q4H PRN PRN Reason: Seizures Lorazepam (Ativan) 0.25 mg IV Q6H PRN PRN Reason: Anxiety Metoprolol Tartrate (Lopressor) 5 mg IVPUSH Q4H PRN PRN Reason: Tachycardia Minoxidil (Loniten) 2.5 mg PO BID@1200,2100 [facility] Multivitamins (Thera) 1 each PO BEDTIME [facility] Last Admin: 09/24/17 20:34 Dose: 1 each Ondansetron HCl (Zofran) 4 mg IV Q6H PRN PRN Reason: Nausea/Vomiting Pantoprazole Sodium (Protonix) 40 mg PO DAILY@0700 [facility] Last Admin: 09/25/17 06:11 Dose: 40 mg Cyclophosphamide 25 (Mg) 0 each PO Q2D@0900 [facility] Last Admin: 09/24/17 09:18 Dose: Not Given Dapsone 25 Mg 0 each PO DAILY@1400 [facility] Last Admin: 09/24/17 14:50 Dose: Not Given Polyethylene Glycol (Miralax) 17 gm PO DAILY PRN PRN Reason: Constipation Prednisone (Prednisone) 30 mg PO DAILY@0800 [facility] Last Admin: 09/25/17 09:59 Dose: 30 mg Senna/Docusate Sodium (Senna Plus) 1 tab PO BID PRN PRN Reason: Constipation Last Admin: 09/24/17 17:04 Dose: 1 tab Sodium Bicarbonate (Sodium Bicarbonate) 650 mg PO BID [facility] Last Admin: 09/25/17 10:00 Dose: 650 mg Thiamine HCl (Vitamin B-1) 200 mg IV DAILY [facility] Last Admin: 09/25/17 09:59 Dose: 200 mg Discontinued Medications Alteplase, Recombinant (Activase) Confirm Administered Dose 100 mg .ROUTE .STK- MED ONE Stop: 09/20/17 10:10 Last Admin: 09/21/17 20:29 Dose: Not Given Clonidine HCl (Catapres) 0.1 mg PO Q12H [facility] Last Admin: 09/21/17 19:34 Dose: Not Given Clonidine HCl (Catapres) 0.2 mg PO Q12H [facility] Last Admin: 09/21/17 16:47 Dose: 0.1 mg Clonidine HCl (Catapres) 0.1 mg PO BEDTIME [facility] Stop: 09/28/17 22:00 Last Admin: 09/24/17 20:38 Dose: Not Given Clonidine HCl (Catapres) 0.2 mg PO DAILY [facility] Last Admin: 09/24/17 09:16 Dose: 0.2 mg Ferrous Sulfate (Ferrous Sulfate) 325 mg PO WITHBREAKFAST [facility] Last Admin: 09/23/17 06:00 Dose: 325 mg Furosemide (Lasix) 40 mg PO BID [facility] Last Admin: 09/20/17 21:30 Dose: 40 mg Furosemide (Lasix) 40 mg PO BID [facility] Last Admin: 09/23/17 09:32 Dose: 40 mg Hydralazine HCl (Apresoline) 10 mg IVPUSH Q4H PRN PRN Reason: Hypertension Last Admin: 09/21/17 04:20 Dose: 10 mg Hydralazine HCl (Apresoline) 5 mg IVPUSH Q6H PRN PRN Reason: Hypertension Hydralazine HCl (Apresoline) 5 mg IVPUSH Q6H PRN PRN Reason: Hypertension Last Admin: 09/22/17 05:17 Dose: 5 mg Magnesium Sulfate 2 gm/ Premix 50 mls @ 50 mls/hr IV ONETIME [facility] Stop: 09/20/17 12:40 Last Admin: 09/20/17 11:47 Dose: 50 mls/hr Sodium Chloride (Normal Saline) 250 mls @ 999 mls/hr IV ONETIME [facility] Stop: 09/24/17 13:45 Last Admin: 09/24/17 13:35 Dose: 999 mls/hr Sodium Chloride (Normal Saline) Confirm Administered Dose 250 mls @ as directed .ROUTE .STK-MED ONE Stop: 09/24/17 13:20 Last Admin: 09/24/17 14:50 Dose: Not Given Labetalol HCl (Normodyne) 5 mg IVPUSH Q6H PRN; Protocol PRN Reason: Hypertension Magnesium Sulfate (Pharmacy To Dose - Magnesium Replacement) 0 dose .XX ASDIRECTED PRN PRN Reason: RX TO WATCH MAG LEVELS Minoxidil (Loniten) 2.5 mg PO BID [facility] Last Admin: 09/23/17 09:36 Dose: 2.5 mg Minoxidil (Loniten) 2.5 mg PO NOW [facility] Stop: 09/22/17 09:13 Last Admin: 09/22/17 11:01 Dose: Not Given Minoxidil (Loniten) 2.5 mg PO BID [facility] Last Admin: 09/24/17 09:16 Dose: 2.5 mg Minoxidil (Loniten) 2.5 mg PO BID [facility] Last Admin: 09/25/17 10:39 Dose: Not Given Nifedipine (Procardia Xl) 15 mg PO BID [facility] Last Admin: 09/22/17 17:15 Dose: Not Given Non-Formulary Medication (Alendronate [Fosamax]) 70 mg PO Tu@0600 [facility] Doxazosin 8 Mg Own (Med) 0 mg PO BEDTIME [facility] Last Admin: 09/20/17 21:30 Dose: 16 mg Acyclovir 400 Mg (Own Med) 0 mg PO BID [facility] Last Admin: 09/20/17 21:30 Dose: 400 mg Non-Formulary Medication (Cranberry [Cranberry]) 1 cap PO DAILY [facility] Sodium Bicarbonate 650 Mg Tab Own Med 0 each PO BID [facility] Last Admin: 09/21/17 09:39 Dose: 1 each Prednisone 20 Mg Tab (Own Med) 0 each PO WITHBREAKFAST [facility] Last Admin: 09/21/17 09:41 Dose: 1.5 each Doxazosin 8 Mg Own (Med) 0 each PO BEDTIME [facility] Acyclovir 400 Mg (Own Med) 0 each PO BID [facility] Last Admin: 09/21/17 09:37 Dose: Not Given Furosemide 40 Mg Tab (Own Meds) 0 each PO BID [facility] Last Admin: 09/21/17 09:39 Dose: Not Given Potassium Chloride (Pharmacy To Dose - Potassium Replacement) 0 dose .XX ASDIRECTED PRN PRN Reason: RX TO WATCH K LEVELS Potassium Chloride (Klor-Con M20) 40 meq PO Q4H [facility] Stop: 09/20/17 22:01 Last Admin: 09/20/17 21:33 Dose: 40 meq Prednisone (Prednisone) 30 mg PO WITHBREAKFAST [facility] Last Admin: 09/21/17 19:33 Dose: Not Given Prednisone (Prednisone) 30 mg PO WITHBREAKFAST [facility] Last Admin: 09/23/17 06:00 Dose: 30 mg Sodium Bicarbonate (Sodium Bicarbonate) 650 mg PO BID [facility] Last Admin: 09/20/17 21:30 Dose: 650 mg - Exam Quality Assessment: DVT Prophylaxis General: Alert, Oriented, No Acute Distress HEENT: Pupils Equal, Pupils Reactive, EOMI Neck: Trachea Midline, No JVD Lungs: Normal Respiratory Effort Cardiovascular: Regular Rate, Regular Rhythm GI/Abdominal Exam: Normal Bowel Sounds, Soft, Non-Tender, No Organomegaly, No Distention (Female) Exam: Deferred Back Exam: Normal Inspection Extremities: Normal Inspection, Non-Tender, No Pedal Edema, Normal Capillary Refill Skin: Warm Neurological: No New Focal Deficit Psy/Mental Status: Alert - Problem List Review Problem List Initiated/Reviewed/Updated: Yes - My Orders Last 24 Hours: My Active Orders 09/24/17 18:43 FREE T3 [REF] Routine 09/24/17 Lunch Heart Healthy Diet [DIET] 09/25/17 05:48 THYROXINE (T4) [REF] Routine 09/25/17 12:00 Minoxidil [Loniten] 2.5 mg PO BID@1200,2100 09/25/17 18:00 cloNIDine [Catapres] 0.1 mg PO DAILY@1800 - Plan Plan:: Assessment/Plan: 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 Low this AM and informed him we (the hospital) do not have any other good medications to offer her here if hydralazine is contraindicated - Continue Minoxidil 2.5 mg po BID while we taper off clonidine--> pharmacy will be in charge - Dr. Low wants her pressure to be in the 150s-160s systolic - Continue PRN low dose hydralazine 5 mg IVP Q6H for BP > 180/90 mmHg Transient Confusion/Delirium - 2/2 Drug Encephalopathy (Clonidine) - No obvious neurological deficits - CT scan/CXR: No acute abnormality - UA and Troponin x 2 both negative - She is baseline but disorientated x 3: Time: July, Place: Don't know where she is at, Person: Do not know, even with a clue provided - [employer] for cognitive eval: Suggestive of Early Dementia - MMSE Score 14: Severe Cognitive Impairment - Vit D level normal Generalized Weakness - Multi-factorial: Anemia, CKD, Hypogmagnesemia, Osteoporosis, Diffuse OA and Medications Side effects - Continue PT/OT - Vit D level-normal - Thyroid Panel-Elevated TSH 4.223 and normal FT4 0.90 - Folic Acid-normal - B12 level-considerably elevated at 1255 Severe Memory Impairment - Questionable Early Dementia - Hold off starting her on Aricept/Namenda - Would like for her to be completely off Clonidine Resolved: S/p Hypomagnesemia - Mg 1.6 --> 2.2 - Likely 2/2 inadequate intake - Replete and monitor Chronic: Impaired Vision HTN GERD 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 LOS > 96hrs pending placement & HTN mgt.
[2017-09-25] MEDS ORDERED: cloNIDine 0.1 MG Tab PO SCH (18:00)
[2017-09-25] MEDS: Multivitamins,Therapeutic Tab PO SCH (20:43)
[2017-09-25] MEDS: Doxazosin 4 MG Tab PO SCH (23:34)
[2017-09-26] MEDS: Furosemide 40 MG Tab PO SCH (06:14)
[2017-09-26] MEDS: Pantoprazole 40 MG Tab.CR PO SCH (06:14)
[2017-09-26] MEDS: predniSONE 10 MG Tab PO SCH (10:13)
[2017-09-26] MEDS: Sodium Bicarbonate 650 MG Tab PO SCH ×2 (10:14→20:56)
[2017-09-26] MEDS: Acyclovir 200 MG Cap PO SCH ×2 (10:14→20:55)
[2017-09-26] MEDS: Cholecalciferol (Vitamin D3) 1,000 Unit Tab PO SCH (10:14)
[2017-09-26] MEDS: cloNIDine 0.1 MG Tab PO SCH (10:14)
[2017-09-26] MEDS: Ferrous Sulfate 325 MG Tab PO SCH (10:14)
[2017-09-26] MEDS: Thiamine 200 MG/2 ML MDV IV SCH (10:15)
[2017-09-26] MEDS ORDERED: cloNIDine 0.1 MG Tab PO PRN (12:05)
--- NOTE | 2017-09-26 12:09 | PCM.PN ---
- General Info Date of Service: 09/26/17 Functional Status: Reports: Pain Controlled, Tolerating Diet, Ambulating, Urinating - Review of Systems General: Reports: Weakness HEENT: Reports: No Symptoms Pulmonary: Reports: No Symptoms Cardiovascular: Reports: No Symptoms Gastrointestinal: Reports: No Symptoms Genitourinary: Reports: No Symptoms Musculoskeletal: Reports: No Symptoms Skin: Reports: No Symptoms Neurological: Reports: No Symptoms Psychiatric: Reports: No Symptoms - Patient Data Vitals - Most Recent: Last Vital Signs Temp 37.1 C 09/26/17 09:18 Pulse 71 09/26/17 09:18 Resp 16 09/26/17 09:18 BP 141/81 H 09/26/17 10:14 Pulse Ox 96 09/26/17 09:18 Weight - Most Recent: 46.522 kg I&O - Last 24 Hours: Intake & Output 09/25/17 09/26/17 09/26/17 22:59 06:59 14:59 Intake Total 780 300 Balance 780 300 Lab Results Last 24 Hours: Laboratory Results - last 24 hr 09/26/17 09/26/17 Range/Units 05:50 05:50 WBC 4.85 (3.98-10.04) K/mm3 RBC 2.85 L (3.98-5.22) M/mm3 Hgb 9.2 L (11.2-15.7) gm/L Hct 28.5 L (34.1-44.9) % MCV 100.0 H (79.4-94.8) fl MCH 32.3 H (25.6-32.2) pg MCHC 32.3 (32.2-35.5) g/dl RDW Std Deviation 60.3 H (36.4-46.3) fL Plt Count 124 L (182-369) K/mm3 MPV 11.0 (9.4-12.3) fl Neut % (Auto) 70.7 (34.0-71.1) % Lymph % (Auto) 19.2 L (19.3-51.7) % [place] % (Auto) 8.9 (4.7-12.5) % Eos % (Auto) 0.2 L (0.7-5.8) Baso % (Auto) 0.2 (0.1-1.2) % Neut # (Auto) 3.43 (1.56-6.13) K/mm3 Lymph # (Auto) 0.93 L (1.18-3.74) K/mm3 [place] # (Auto) 0.43 H (0.24-0.36) K/mm3 Eos # (Auto) 0.01 L (0.04-0.36) K/mm3 Baso # (Auto) 0.01 (0.01-0.08) K/mm3 Sodium 135 L (136-145) mEq/L Potassium 4.6 (3.5-5.1) mEq/L Chloride 101 (98-107) mEq/L Carbon Dioxide 25 (21-32) mEq/L Anion Gap 13.6 (5-15) BUN 100 H (7-18) mg/dL Creatinine 4.2 H (0.55-1.02) mg/dL Est Cr Clr Drug Dosing 6.91 mL/min Estimated GFR (MDRD) 10 (>60) mL/min BUN/Creatinine Ratio 23.8 H (14-18) Glucose 96 (83-115) mg/dL Calcium 9.4 (8.5-10.1) mg/dL Magnesium 2.2 (1.8-2.4) mg/dl C-Reactive Protein < 0.2 (<1.0) mg/dL Med Orders - Current: Current Medications Acetaminophen (Tylenol) 650 mg PO Q4H PRN PRN Reason: Pain (Mild 1-3)/fever Hydrocodone Bitart/Acetaminophen ([place] 325-5 Mg) 1 tab PO Q4H PRN PRN Reason: Pain (moderate 4-6) Acyclovir (Zovirax) 400 mg PO BID [facility] Last Admin: 09/26/17 10:14 Dose: 400 mg Albuterol/Ipratropium (Duoneb 3.0-0.5 Mg/3 Ml) 3 ml NEB Q4H PRN PRN Reason: Shortness Of Breath/wheezing Bisacodyl (Dulcolax) 5 mg PO DAILY PRN PRN Reason: Constipation Last Admin: 09/25/17 06:11 Dose: 5 mg Cholecalciferol (Vitamin D3) 2,000 units PO DAILY [facility] Last Admin: 09/26/17 10:14 Dose: 2,000 units Clonidine HCl (Catapres) 0.1 mg PO DAILY [facility] Stop: 10/01/17 10:00 Last Admin: 09/26/17 10:14 Dose: 0.1 mg Clonidine HCl (Catapres) 0.1 mg PO DAILY@1800 PRN PRN Reason: Hypertension Docusate Sodium (Colace) 100 mg PO BID PRN PRN Reason: Constipation Doxazosin Mesylate (Cardura) 16 mg PO BEDTIME [facility] Last Admin: 09/25/17 23:34 Dose: Not Given Ferrous Sulfate (Ferrous Sulfate) 325 mg PO DAILY@0800 [facility] Last Admin: 09/26/17 10:14 Dose: 325 mg Furosemide (Lasix) 40 mg PO BIDDIURETIC [facility] Last Admin: 09/26/17 06:14 Dose: 40 mg Hydralazine HCl (Apresoline) 5 mg IVPUSH Q6H PRN PRN Reason: Hypertension Last Admin: 09/22/17 23:38 Dose: 5 mg Promethazine HCl 6.25 mg/ (Sodium Chloride) 50.25 mls @ 100 mls/hr IV Q6H PRN PRN Reason: Nausea/Vomiting Lorazepam (Ativan) 2 mg IVPUSH Q4H PRN PRN Reason: Seizures Lorazepam (Ativan) 0.25 mg IV Q6H PRN PRN Reason: Anxiety Metoprolol Tartrate (Lopressor) 5 mg IVPUSH Q4H PRN PRN Reason: Tachycardia Minoxidil (Loniten) 2.5 mg PO BID@1200,2100 [facility] Last Admin: 09/25/17 20:47 Dose: 2.5 mg Multivitamins (Thera) 1 each PO BEDTIME [facility] Last Admin: 09/25/17 20:43 Dose: 1 each Ondansetron HCl (Zofran) 4 mg IV Q6H PRN PRN Reason: Nausea/Vomiting Pantoprazole Sodium (Protonix) 40 mg PO DAILY@0700 [facility] Last Admin: 09/26/17 06:14 Dose: 40 mg Cyclophosphamide 25 (Mg) 0 each PO Q2D@0900 [facility] Last Admin: 09/24/17 09:18 Dose: Not Given Dapsone 25 Mg 0 each PO DAILY@1400 [facility] Last Admin: 09/25/17 14:41 Dose: 1 each Polyethylene Glycol (Miralax) 17 gm PO DAILY PRN PRN Reason: Constipation Prednisone (Prednisone) 30 mg PO DAILY@0800 [facility] Last Admin: 09/26/17 10:13 Dose: 30 mg Senna/Docusate Sodium (Senna Plus) 1 tab PO BID PRN PRN Reason: Constipation Last Admin: 09/24/17 17:04 Dose: 1 tab Sodium Bicarbonate (Sodium Bicarbonate) 650 mg PO BID [facility] Last Admin: 09/26/17 10:14 Dose: 650 mg Thiamine HCl (Vitamin B-1) 200 mg IV DAILY [facility] Last Admin: 09/26/17 10:15 Dose: 200 mg Discontinued Medications Alteplase, Recombinant (Activase) Confirm Administered Dose 100 mg .ROUTE .[facility] Stop: 09/20/17 10:10 Last Admin: 09/21/17 20:29 Dose: Not Given Clonidine HCl (Catapres) 0.1 mg PO Q12H [facility] Last Admin: 09/21/17 19:34 Dose: Not Given Clonidine HCl (Catapres) 0.2 mg PO Q12H [facility] Last Admin: 09/21/17 16:47 Dose: 0.1 mg Clonidine HCl (Catapres) 0.1 mg PO BEDTIME [facility] Stop: 09/28/17 22:00 Last Admin: 09/24/17 20:38 Dose: Not Given Clonidine HCl (Catapres) 0.2 mg PO DAILY [facility] Last Admin: 09/24/17 09:16 Dose: 0.2 mg Clonidine HCl (Catapres) 0.1 mg PO DAILY@1800 [facility] Last Admin: 09/25/17 18:25 Dose: Not Given Ferrous Sulfate (Ferrous Sulfate) 325 mg PO WITHBREAKFAST [facility] Last Admin: 09/23/17 06:00 Dose: 325 mg Furosemide (Lasix) 40 mg PO BID [facility] Last Admin: 09/20/17 21:30 Dose: 40 mg Furosemide (Lasix) 40 mg PO BID [facility] Last Admin: 09/23/17 09:32 Dose: 40 mg Hydralazine HCl (Apresoline) 10 mg IVPUSH Q4H PRN PRN Reason: Hypertension Last Admin: 09/21/17 04:20 Dose: 10 mg Hydralazine HCl (Apresoline) 5 mg IVPUSH Q6H PRN PRN Reason: Hypertension Hydralazine HCl (Apresoline) 5 mg IVPUSH Q6H PRN PRN Reason: Hypertension Last Admin: 09/22/17 05:17 Dose: 5 mg Magnesium Sulfate 2 gm/ Premix 50 mls @ 50 mls/hr IV ONETIME STA Stop: 09/20/17 12:40 Last Admin: 09/20/17 11:47 Dose: 50 mls/hr Sodium Chloride (Normal Saline) 250 mls @ 999 mls/hr IV ONETIME ONE Stop: 09/24/17 13:45 Last Admin: 09/24/17 13:35 Dose: 999 mls/hr Sodium Chloride (Normal Saline) Confirm Administered Dose 250 mls @ as directed .ROUTE .[facility] ONE Stop: 09/24/17 13:20 Last Admin: 09/24/17 14:50 Dose: Not Given Labetalol HCl (Normodyne) 5 mg IVPUSH Q6H PRN; Protocol PRN Reason: Hypertension Magnesium Sulfate (Pharmacy To Dose - Magnesium Replacement) 0 dose .XX ASDIRECTED PRN PRN Reason: RX TO WATCH MAG LEVELS Minoxidil (Loniten) 2.5 mg PO BID [facility] Last Admin: 09/23/17 09:36 Dose: 2.5 mg Minoxidil (Loniten) 2.5 mg PO NOW STA Stop: 09/22/17 09:13 Last Admin: 09/22/17 11:01 Dose: Not Given Minoxidil (Loniten) 2.5 mg PO BID [facility] Last Admin: 09/24/17 09:16 Dose: 2.5 mg Minoxidil (Loniten) 2.5 mg PO BID [facility] Last Admin: 09/25/17 10:39 Dose: Not Given Nifedipine (Procardia Xl) 15 mg PO BID [facility] Last Admin: 09/22/17 17:15 Dose: Not Given Non-Formulary Medication (Alendronate [Fosamax]) 70 mg PO Tu@0600 [facility] Doxazosin 8 Mg Own (Med) 0 mg PO BEDTIME [facility] Last Admin: 09/20/17 21:30 Dose: 16 mg Acyclovir 400 Mg (Own Med) 0 mg PO BID [facility] Last Admin: 09/20/17 21:30 Dose: 400 mg Non-Formulary Medication (Cranberry [Cranberry]) 1 cap PO DAILY [facility] Sodium Bicarbonate 650 Mg Tab Own Med 0 each PO BID [facility] Last Admin: 09/21/17 09:39 Dose: 1 each Prednisone 20 Mg Tab (Own Med) 0 each PO WITHBREAKFAST [facility] Last Admin: 09/21/17 09:41 Dose: 1.5 each Doxazosin 8 Mg Own (Med) 0 each PO BEDTIME [facility] Acyclovir 400 Mg (Own Med) 0 each PO BID [facility] Last Admin: 09/21/17 09:37 Dose: Not Given Furosemide 40 Mg Tab (Own Meds) 0 each PO BID [facility] Last Admin: 09/21/17 09:39 Dose: Not Given Potassium Chloride (Pharmacy To Dose - Potassium Replacement) 0 dose .XX ASDIRECTED PRN PRN Reason: RX TO WATCH K LEVELS Potassium Chloride (Klor-Con M20) 40 meq PO Q4H [facility] Stop: 09/20/17 22:01 Last Admin: 09/20/17 21:33 Dose: 40 meq Prednisone (Prednisone) 30 mg PO WITHBREAKFAST [facility] Last Admin: 09/21/17 19:33 Dose: Not Given Prednisone (Prednisone) 30 mg PO WITHBREAKFAST [facility] Last Admin: 09/23/17 06:00 Dose: 30 mg Sodium Bicarbonate (Sodium Bicarbonate) 650 mg PO BID [facility] Last Admin: 09/20/17 21:30 Dose: 650 mg - Exam Quality Assessment: DVT Prophylaxis General: Alert, Oriented, Cooperative, No Acute Distress HEENT: Pupils Equal, Pupils Reactive, EOMI Neck: Trachea Midline, No JVD Lungs: Normal Respiratory Effort GI/Abdominal Exam: Normal Bowel Sounds, Soft, Non-Tender, No Organomegaly, No Distention (Female) Exam: Deferred Back Exam: Normal Inspection Extremities: Normal Inspection, Non-Tender Skin: Warm Neurological: No New Focal Deficit Psy/Mental Status: Alert - Problem List Review Problem List Initiated/Reviewed/Updated: Yes - My Orders Last 24 Hours: My Active Orders 09/25/17 12:00 Minoxidil [Loniten] 2.5 mg PO BID@1200,2100 09/26/17 12:05 cloNIDine [Catapres] 0.1 mg PO DAILY@1800 PRN 09/27/17 05:00 BMP [BASIC METABOLIC PANEL,BMP] [CHEM] DAILY CBC WITH AUTO DIFF [HEME] DAILY MAGNESIUM [CHEM] DAILY 09/28/17 05:00 BMP [BASIC METABOLIC PANEL,BMP] [CHEM] DAILY CBC WITH AUTO DIFF [HEME] DAILY MAGNESIUM [CHEM] DAILY - Plan Plan:: Assessment/Plan: 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 Low this AM and informed him we (the hospital) do not have any other good medications to offer her here if hydralazine is contraindicated - Continue Minoxidil 2.5 mg po BID while we taper off clonidine-->change Catapres pm to prn, mainatin remaining regimen; hold Lasix as above. - Dr. Low wants her pressure to be in the 150s-160s systolic - Continue PRN low dose hydralazine 5 mg IVP Q6H for BP > 180/90 mmHg Acute renal failure on CKD, Cr 4.2; previous lab for comparison 09/21; hold nephrotoxins, hydrate, avoid dehydration; start IVF LR at 75 cc/hr Transient Confusion/Delirium - 2/2 Drug Encephalopathy (Clonidine) - No obvious neurological deficits - CT scan/CXR: No acute abnormality - UA and Troponin x 2 both negative - She is baseline but disorientated x 3: Time: July, Place: Don't know where she is at, Person: Do not know, even with a clue provided - [employer] for cognitive eval: Suggestive of Early Dementia - MMSE Score 14: Severe Cognitive Impairment - Vit D level normal Generalized Weakness - Multi-factorial: Anemia, CKD, Hypogmagnesemia, Osteoporosis, Diffuse OA and Medications Side effects - Continue PT/OT - Vit D level-normal - Thyroid Panel-Elevated TSH 4.223 and normal FT4 0.90 - Folic Acid-normal - B12 level-considerably elevated at 1255 Severe Memory Impairment - Questionable Early Dementia - Hold off starting her on Aricept/Namenda - Would like for her to be completely off Clonidine Resolved: S/p Hypomagnesemia - Mg 1.6 --> 2.2 - Likely 2/2 inadequate intake - Replete and monitor Chronic: Impaired Vision HTN GERD 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 LOS > 96hrs pending placement & HTN mgt.
[2017-09-26] MEDS: Minoxidil 2.5 MG Tab PO SCH ×2 (12:34→20:52)
[2017-09-26] MEDS: Lactated Ringers 1,000 ML IV SCH (13:10)
[2017-09-26] MEDS: CYCLOPHOSPHAMIDE 25 MG PO SCH (13:39)
[2017-09-26] MEDS: Doxazosin 4 MG Tab PO SCH (20:52)
[2017-09-26] MEDS: Multivitamins,Therapeutic Tab PO SCH (20:56)
[2017-09-27] MEDS ORDERED: ALENDRONATE 70 MG PO SCH (06:00)
[2017-09-27] MEDS: Pantoprazole 40 MG Tab.CR PO SCH (06:21)
[2017-09-27] MEDS: hydrALAZINE 20 MG/ML SDV IVPUSH PRN (06:46)
[2017-09-27] MEDS: Thiamine 200 MG/2 ML MDV IV SCH (08:20)
[2017-09-27] MEDS: cloNIDine 0.1 MG Tab PO SCH (08:25)
[2017-09-27] MEDS: Acyclovir 200 MG Cap PO SCH ×2 (08:26→20:30)
[2017-09-27] MEDS: Sodium Bicarbonate 650 MG Tab PO SCH ×2 (08:26→20:31)
[2017-09-27] MEDS: predniSONE 10 MG Tab PO SCH (08:26)
[2017-09-27] MEDS: Ferrous Sulfate 325 MG Tab PO SCH (08:26)
[2017-09-27] MEDS: Cholecalciferol (Vitamin D3) 1,000 Unit Tab PO SCH (08:26)
[2017-09-27] MEDS: Minoxidil 2.5 MG Tab PO SCH ×2 (11:30→20:31)
--- NOTE | 2017-09-27 13:21 | PCM.PN ---
- General Info Date of Service: 09/27/17 Admission Dx/Problem (Free Text): Admission Diagnosis/Problem Admission Diagnosis/Problem Lethargy Subjective Update: In to see Rossy today. She is sitting in a chair. Overall she is doing quite well. She has no complaints. She has been sleeping well. Good appetite. Ambulating. Pain is controlled. No confusion or fatigue. Urinating. Incentive Spirometry. No concerns from nursing. Her appetite is returning. Improved activity level, more alert; clonidine taper will be continued with adjustment of time regimen. Functional Status: Reports: Pain Controlled, Tolerating Diet, Ambulating, Urinating - Review of Systems General: Reports: No Symptoms. Denies: Fever, Fatigue, Chills HEENT: Reports: No Symptoms Pulmonary: Reports: No Symptoms. Denies: Shortness of Breath, Cough, Sputum Cardiovascular: Reports: No Symptoms. Denies: Chest Pain, Palpitations, Edema Gastrointestinal: Reports: No Symptoms. Denies: Abdominal Pain, Constipation ( last BM 2 days ago, normal), Diarrhea, Nausea, Vomiting Genitourinary: Reports: No Symptoms. Denies: Dysuria, Frequency, Burning, Pain , Urgency Musculoskeletal: Reports: No Symptoms Skin: Reports: No Symptoms Neurological: Reports: No Symptoms. Denies: Confusion, Dizziness, Headache Psychiatric: Reports: No Symptoms. Denies: Confusion - Patient Data Vitals - Most Recent: Last Vital Signs Temp 98.8 F 09/27/17 08:17 Pulse 73 09/27/17 08:17 Resp 18 09/27/17 08:17 BP 118/68 09/27/17 11:30 Pulse Ox 95 09/27/17 08:17 Weight - Most Recent: 113 lb 9.6 oz I&O - Last 24 Hours: Intake & Output 09/26/17 09/27/17 09/27/17 22:59 06:59 14:59 Intake Total 775 505 180 Output Total 200 Balance 775 305 180 Lab Results Last 24 Hours: Laboratory Results - last 24 hr 09/27/17 09/27/17 09/27/17 Range/Units 05:20 05:20 10:30 WBC 6.02 (3.98-10.04) K/mm3 RBC 2.71 L (3.98-5.22) M/mm3 Hgb 9.0 L (11.2-15.7) gm/L Hct 27.2 L (34.1-44.9) % MCV 100.4 H (79.4-94.8) fl MCH 33.2 H (25.6-32.2) pg MCHC 33.1 (32.2-35.5) g/dl RDW Std Deviation 60.6 H (36.4-46.3) fL Plt Count 128 L (182-369) K/mm3 MPV 11.1 (9.4-12.3) fl Neut % (Auto) 76.2 H (34.0-71.1) % Lymph % (Auto) 15.9 L (19.3-51.7) % Floyd % (Auto) 7.5 (4.7-12.5) % Eos % (Auto) 0.2 L (0.7-5.8) Baso % (Auto) 0.2 (0.1-1.2) % Neut # (Auto) 4.59 (1.56-6.13) K/mm3 Lymph # (Auto) 0.96 L (1.18-3.74) K/mm3 Floyd # (Auto) 0.45 H (0.24-0.36) K/mm3 Eos # (Auto) 0.01 L (0.04-0.36) K/mm3 Baso # (Auto) 0.01 (0.01-0.08) K/mm3 Manual Slide Review Abnormal smear Sodium 137 (136-145) mEq/L Potassium 4.5 (3.5-5.1) mEq/L Chloride 103 (98-107) mEq/L Carbon Dioxide 23 (21-32) mEq/L Anion Gap 15.5 H (5-15) BUN 110 H (7-18) mg/dL Creatinine 4.1 H (0.55-1.02) mg/dL Est Cr Clr Drug Dosing 7.07 mL/min Estimated GFR (MDRD) 10 (>60) mL/min BUN/Creatinine Ratio 26.8 H (14-18) Glucose 98 (83-115) mg/dL Calcium 9.2 (8.5-10.1) mg/dL Magnesium 2.1 (1.8-2.4) mg/dl NT-Pro-B Natriuret Pep 2542 H (0-450) pg/mL Med Orders - Current: Current Medications Acetaminophen (Tylenol) 650 mg PO Q4H PRN PRN Reason: Pain (Mild 1-3)/fever Hydrocodone Bitart/Acetaminophen (Mullan 325-5 Mg) 1 tab PO Q4H PRN PRN Reason: Pain (moderate 4-6) Acyclovir (Zovirax) 400 mg PO BID [facility] Last Admin: 09/27/17 08:26 Dose: 400 mg Albuterol/Ipratropium (Duoneb 3.0-0.5 Mg/3 Ml) 3 ml NEB Q4H PRN PRN Reason: Shortness Of Breath/wheezing Bisacodyl (Dulcolax) 5 mg PO DAILY PRN PRN Reason: Constipation Last Admin: 09/25/17 06:11 Dose: 5 mg Cholecalciferol (Vitamin D3) 2,000 units PO DAILY [facility] Last Admin: 09/27/17 08:26 Dose: 2,000 units Clonidine HCl (Catapres) 0.1 mg PO DAILY [facility] Stop: 10/01/17 10:00 Last Admin: 09/27/17 08:25 Dose: 0.1 mg Clonidine HCl (Catapres) 0.1 mg PO DAILY@1800 PRN PRN Reason: Hypertension Docusate Sodium (Colace) 100 mg PO BID PRN PRN Reason: Constipation Doxazosin Mesylate (Cardura) 16 mg PO BEDTIME [facility] Last Admin: 09/26/17 20:52 Dose: Not Given Ferrous Sulfate (Ferrous Sulfate) 325 mg PO DAILY@0800 [facility] Last Admin: 09/27/17 08:26 Dose: 325 mg Furosemide (Lasix) 40 mg PO BIDDIURETIC [facility] Last Admin: 09/26/17 06:14 Dose: 40 mg Promethazine HCl 6.25 mg/ (Sodium Chloride) 50.25 mls @ 100 mls/hr IV Q6H PRN PRN Reason: Nausea/Vomiting Lactated Ringer's (Ringers, Lactated) 1,000 mls @ 75 mls/hr IV ASDIRECTED [facility] Last Admin: 09/26/17 13:10 Dose: 75 mls/hr Lorazepam (Ativan) 2 mg IVPUSH Q4H PRN PRN Reason: Seizures Lorazepam (Ativan) 0.25 mg IV Q6H PRN PRN Reason: Anxiety Metoprolol Tartrate (Lopressor) 5 mg IVPUSH Q4H PRN PRN Reason: Tachycardia Minoxidil (Loniten) 2.5 mg PO BID@1200,2100 [facility] Last Admin: 09/27/17 11:30 Dose: Not Given Multivitamins (Thera) 1 each PO BEDTIME [facility] Last Admin: 09/26/17 20:56 Dose: 1 each Ondansetron HCl (Zofran) 4 mg IV Q6H PRN PRN Reason: Nausea/Vomiting Pantoprazole Sodium (Protonix) 40 mg PO DAILY@0700 [facility] Last Admin: 09/27/17 06:21 Dose: 40 mg Cyclophosphamide 25 (Mg) 0 each PO Q2D@0900 [facility] Last Admin: 09/26/17 13:39 Dose: 1 each Dapsone 25 Mg 0 each PO DAILY@1400 [facility] Last Admin: 09/26/17 13:11 Dose: 1 each Polyethylene Glycol (Miralax) 17 gm PO DAILY PRN PRN Reason: Constipation Prednisone (Prednisone) 30 mg PO DAILY@0800 [facility] Last Admin: 09/27/17 08:26 Dose: 30 mg Senna/Docusate Sodium (Senna Plus) 1 tab PO BID PRN PRN Reason: Constipation Last Admin: 09/24/17 17:04 Dose: 1 tab Sodium Bicarbonate (Sodium Bicarbonate) 650 mg PO BID [facility] Last Admin: 09/27/17 08:26 Dose: 650 mg Thiamine HCl (Vitamin B-1) 200 mg IV DAILY [facility] Last Admin: 09/27/17 08:20 Dose: 200 mg Discontinued Medications Alteplase, Recombinant (Activase) Confirm Administered Dose 100 mg .ROUTE .[facility] Stop: 09/20/17 10:10 Last Admin: 09/21/17 20:29 Dose: Not Given Clonidine HCl (Catapres) 0.1 mg PO Q12H [facility] Last Admin: 09/21/17 19:34 Dose: Not Given Clonidine HCl (Catapres) 0.2 mg PO Q12H [facility] Last Admin: 09/21/17 16:47 Dose: 0.1 mg Clonidine HCl (Catapres) 0.1 mg PO BEDTIME [facility] Stop: 09/28/17 22:00 Last Admin: 09/24/17 20:38 Dose: Not Given Clonidine HCl (Catapres) 0.2 mg PO DAILY [facility] Last Admin: 09/24/17 09:16 Dose: 0.2 mg Clonidine HCl (Catapres) 0.1 mg PO DAILY@1800 [facility] Last Admin: 09/25/17 18:25 Dose: Not Given Ferrous Sulfate (Ferrous Sulfate) 325 mg PO WITHBREAKFAST [facility] Last Admin: 09/23/17 06:00 Dose: 325 mg Furosemide (Lasix) 40 mg PO BID [facility] Last Admin: 09/20/17 21:30 Dose: 40 mg Furosemide (Lasix) 40 mg PO BID [facility] Last Admin: 09/23/17 09:32 Dose: 40 mg Hydralazine HCl (Apresoline) 10 mg IVPUSH Q4H PRN PRN Reason: Hypertension Last Admin: 09/21/17 04:20 Dose: 10 mg Hydralazine HCl (Apresoline) 5 mg IVPUSH Q6H PRN PRN Reason: Hypertension Hydralazine HCl (Apresoline) 5 mg IVPUSH Q6H PRN PRN Reason: Hypertension Last Admin: 09/22/17 05:17 Dose: 5 mg Hydralazine HCl (Apresoline) 5 mg IVPUSH Q6H PRN PRN Reason: Hypertension Last Admin: 09/27/17 06:46 Dose: 5 mg Magnesium Sulfate 2 gm/ Premix 50 mls @ 50 mls/hr IV ONETIME STA Stop: 09/20/17 12:40 Last Admin: 09/20/17 11:47 Dose: 50 mls/hr Sodium Chloride (Normal Saline) 250 mls @ 999 mls/hr IV ONETIME ONE Stop: 09/24/17 13:45 Last Admin: 09/24/17 13:35 Dose: 999 mls/hr Sodium Chloride (Normal Saline) Confirm Administered Dose 250 mls @ as directed .ROUTE .[facility] ONE Stop: 09/24/17 13:20 Last Admin: 09/24/17 14:50 Dose: Not Given Labetalol HCl (Normodyne) 5 mg IVPUSH Q6H PRN; Protocol PRN Reason: Hypertension Magnesium Sulfate (Pharmacy To Dose - Magnesium Replacement) 0 dose .XX ASDIRECTED PRN PRN Reason: RX TO WATCH MAG LEVELS Minoxidil (Loniten) 2.5 mg PO BID [facility] Last Admin: 09/23/17 09:36 Dose: 2.5 mg Minoxidil (Loniten) 2.5 mg PO NOW [facility] Stop: 09/22/17 09:13 Last Admin: 09/22/17 11:01 Dose: Not Given Minoxidil (Loniten) 2.5 mg PO BID [facility] Last Admin: 09/24/17 09:16 Dose: 2.5 mg Minoxidil (Loniten) 2.5 mg PO BID [facility] Last Admin: 09/25/17 10:39 Dose: Not Given Nifedipine (Procardia Xl) 15 mg PO BID [facility] Last Admin: 09/22/17 17:15 Dose: Not Given Non-Formulary Medication (Alendronate [Fosamax]) 70 mg PO Tu@0600 [facility] Doxazosin 8 Mg Own (Med) 0 mg PO BEDTIME [facility] Last Admin: 09/20/17 21:30 Dose: 16 mg Acyclovir 400 Mg (Own Med) 0 mg PO BID [facility] Last Admin: 09/20/17 21:30 Dose: 400 mg Non-Formulary Medication (Cranberry [Cranberry]) 1 cap PO DAILY [facility] Sodium Bicarbonate 650 Mg Tab Own Med 0 each PO BID [facility] Last Admin: 09/21/17 09:39 Dose: 1 each Prednisone 20 Mg Tab (Own Med) 0 each PO WITHBREAKFAST [facility] Last Admin: 09/21/17 09:41 Dose: 1.5 each Doxazosin 8 Mg Own (Med) 0 each PO BEDTIME [facility] Acyclovir 400 Mg (Own Med) 0 each PO BID [facility] Last Admin: 09/21/17 09:37 Dose: Not Given Furosemide 40 Mg Tab (Own Meds) 0 each PO BID [facility] Last Admin: 09/21/17 09:39 Dose: Not Given Potassium Chloride (Pharmacy To Dose - Potassium Replacement) 0 dose .XX ASDIRECTED PRN PRN Reason: RX TO WATCH K LEVELS Potassium Chloride (Klor-Con M20) 40 meq PO Q4H [facility] Stop: 09/20/17 22:01 Last Admin: 09/20/17 21:33 Dose: 40 meq Prednisone (Prednisone) 30 mg PO WITHBREAKFAST [facility] Last Admin: 09/21/17 19:33 Dose: Not Given Prednisone (Prednisone) 30 mg PO WITHBREAKFAST [facility] Last Admin: 09/23/17 06:00 Dose: 30 mg Sodium Bicarbonate (Sodium Bicarbonate) 650 mg PO BID [facility] Last Admin: 09/20/17 21:30 Dose: 650 mg - Exam Quality Assessment: DVT Prophylaxis. No: Supplemental Oxygen General: Alert, Oriented, Cooperative, No Acute Distress HEENT: Pupils Equal, Pupils Reactive, EOMI, Mucous Membr. Moist/[employer] Neck: Supple Lungs: Clear to Auscultation, Normal Respiratory Effort Cardiovascular: Regular Rate, Regular Rhythm, Murmurs (grade 3 systolic murmur) GI/Abdominal Exam: Normal Bowel Sounds, Soft, Non-Tender, No Organomegaly, No Distention, No Abnormal Bruit, No Mass, Pelvis Stable (Female) Exam: Deferred Back Exam: Normal Inspection, Full Range of Motion Extremities: Normal Inspection, Normal Range of Motion, Non-Tender, No Pedal Edema, Normal Capillary Refill Peripheral Pulses: 1+: Posterior Tibial (L), Posterior Tibial (R), Dorsalis Pedis (L), Dorsalis Pedis (R) Skin: Warm, Dry, Intact Neurological: No New Focal Deficit Psy/Mental Status: Alert, Normal Affect, Normal Mood - Problem List & Annotations (1) Hypomagnesemia SNOMED Code(s): 855114065 Code(s): E83.42 - HYPOMAGNESEMIA Status: Acute Priority: Medium Current Visit: Yes (2) Lethargy SNOMED Code(s): 390103814 Code(s): R53.83 - OTHER FATIGUE Status: Acute Priority: High Current Visit: Yes (3) Anemia SNOMED Code(s): 802904524 Code(s): D64.9 - ANEMIA, UNSPECIFIED Status: Chronic Priority: Medium Current Visit: Yes Qualifiers: Anemia type: due to chronic kidney disease Chronic kidney disease stage: unspecified stage Qualified Code(s): N18.9 - Chronic kidney disease, unspecified; D63.1 - Anemia in chronic kidney disease (4) Hypertension SNOMED Code(s): 32616609 Code(s): I10 - ESSENTIAL (PRIMARY) HYPERTENSION Status: Chronic Priority : Low Current Visit: No Qualifiers: Hypertension type: unspecified Qualified Code(s): I10 - Essential (primary ) hypertension (5) Kidney disease SNOMED Code(s): 57178316 Code(s): N28.9 - DISORDER OF KIDNEY AND URETER, UNSPECIFIED Status: Chronic Priority: High Current Visit: Yes - Problem List Review Problem List Initiated/Reviewed/Updated: Yes - Plan Plan:: Assessment/Plan: 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 Low this AM and informed him we (the hospital) do not have any other good medications to offer her here if hydralazine is contraindicated - Continue Minoxidil 2.5 mg po BID while we taper off clonidine-->change Catapres pm to prn, mainatin remaining regimen; hold Lasix as above. - Dr. Low wants her pressure to be in the 150s-160s systolic - Continue PRN low dose hydralazine 5 mg IVP Q6H for BP > 180/90 mmHg Acute renal failure on CKD -Cr 4.2--> 4.1 -Hold nephrotoxins, hydrate, avoid dehydration -Start IVF LR at 75 cc/hr Generalized Weakness - Multi-factorial: Anemia, CKD, Hypogmagnesemia, Osteoporosis, Diffuse OA and Medications Side effects - Continue PT/OT - Vit D level-normal - Thyroid Panel-Elevated TSH 4.223 and normal FT4 0.90 - Folic Acid-normal - B12 level-considerably elevated at 1255; Recheck Severe Memory Impairment - Questionable Early Dementia - Hold off starting her on Aricept/Namenda - Would like for her to be completely off Clonidine Resolved: S/p Hypomagnesemia - Mg 1.6 --> 2.2 - Likely 2/2 inadequate intake - Replete and monitor Transient Confusion/Delirium - 2/2 Drug Encephalopathy (Clonidine) - No obvious neurological deficits - CT scan/CXR: No acute abnormality - UA and Troponin x 2 both negative - She is baseline but disorientated x 3: Time: July, Place: Don't know where she is at, Person: Do not know, even with a clue provided - [employer] for cognitive eval: Suggestive of Early Dementia - MMSE Score 14: Severe Cognitive Impairment - Vit D level normal Chronic: Impaired Vision HTN GERD 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 LOS > 96hrs pending placement & HTN mgt.
[2017-09-27] MEDS: Lactated Ringers 1,000 ML IV SCH (13:35)
[2017-09-27] MEDS: Doxazosin 4 MG Tab PO SCH (20:30)
[2017-09-27] MEDS: Multivitamins,Therapeutic Tab PO SCH (20:31)
[2017-09-28] MEDS: Lactated Ringers 1,000 ML IV SCH ×2 (03:27→16:07)
[2017-09-28] MEDS: Pantoprazole 40 MG Tab.CR PO SCH (07:03)
[2017-09-28] MEDS: Cholecalciferol (Vitamin D3) 1,000 Unit Tab PO SCH (09:54)
[2017-09-28] MEDS: Acyclovir 200 MG Cap PO SCH ×2 (09:55→20:41)
[2017-09-28] MEDS: cloNIDine 0.1 MG Tab PO SCH (09:55)
[2017-09-28] MEDS: Sodium Bicarbonate 650 MG Tab PO SCH ×2 (09:55→20:45)
[2017-09-28] MEDS: Ferrous Sulfate 325 MG Tab PO SCH (09:55)
[2017-09-28] MEDS: predniSONE 10 MG Tab PO SCH (09:55)
[2017-09-28] MEDS: CYCLOPHOSPHAMIDE 25 MG PO SCH (09:56)
[2017-09-28] MEDS: Thiamine 200 MG/2 ML MDV IV SCH (09:59)
[2017-09-28] MEDS: Minoxidil 2.5 MG Tab PO SCH ×2 (12:51→20:44)
--- NOTE | 2017-09-28 13:13 | PCM.PN ---
- General Info Date of Service: 09/28/17 Admission Dx/Problem (Free Text): Admission Diagnosis/Problem Admission Diagnosis/Problem Lethargy Subjective Update: In to see Rossy today. She is sitting in a chair eating lunch during visit. Overall she is doing quite well. She has no complaints besides occasional cough with white sputum production. She has been sleeping well. Good appetite. Baseline confusion but no overt delirium. She states she did not have a BM; I&O record shows 1 BM yesterday. No concerns from nursing. Improved activity level, more alert; clonidine taper will be continued with adjustment of time regimen. Functional Status: Reports: Pain Controlled, Tolerating Diet, Ambulating, Urinating - Review of Systems General: Reports: No Symptoms. Denies: Fever HEENT: Reports: No Symptoms Pulmonary: Reports: Cough (occasional ), Sputum (white, occasional ). Denies: Shortness of Breath Cardiovascular: Reports: No Symptoms. Denies: Chest Pain, Edema Gastrointestinal: Reports: No Symptoms. Denies: Constipation, Nausea, Vomiting Genitourinary: Reports: No Symptoms. Denies: Dysuria, Frequency Musculoskeletal: Reports: No Symptoms Skin: Reports: No Symptoms Neurological: Reports: Confusion (at baseline ). Denies: Dizziness, Headache Psychiatric: Reports: Confusion (at baseline ). Denies: Depression - Patient Data Vitals - Most Recent: Last Vital Signs Temp 97.9 F 09/28/17 12:30 Pulse 77 09/28/17 12:30 Resp 22 H 09/28/17 12:30 BP 133/57 L 09/28/17 12:51 Pulse Ox 97 09/28/17 12:30 Weight - Most Recent: 109 lb 9 oz I&O - Last 24 Hours: Intake & Output 09/27/17 09/28/17 09/28/17 22:59 06:59 14:59 Intake Total 1190 1163 180 Output Total 200 Balance 1190 963 180 Lab Results Last 24 Hours: Laboratory Results - last 24 hr 09/24/17 09/27/17 09/28/17 Range/Units 18:43 10:30 05:55 WBC 5.11 (3.98-10.04) K/mm3 RBC 2.60 L (3.98-5.22) M/mm3 Hgb 8.4 L (11.2-15.7) gm/L Hct 26.5 L (34.1-44.9) % MCV 101.9 H (79.4-94.8) fl MCH 32.3 H (25.6-32.2) pg MCHC 31.7 L (32.2-35.5) g/dl RDW Std Deviation 62.2 H (36.4-46.3) fL Plt Count 122 L (182-369) K/mm3 MPV 10.9 (9.4-12.3) fl Neut % (Auto) 70.6 (34.0-71.1) % Lymph % (Auto) 19.2 L (19.3-51.7) % [place] % (Auto) 8.6 (4.7-12.5) % Eos % (Auto) 0.6 L (0.7-5.8) Baso % (Auto) 0.2 (0.1-1.2) % Neut # (Auto) 3.61 (1.56-6.13) K/mm3 Lymph # (Auto) 0.98 L (1.18-3.74) K/mm3 [place] # (Auto) 0.44 H (0.24-0.36) K/mm3 Eos # (Auto) 0.03 L (0.04-0.36) K/mm3 Baso # (Auto) 0.01 (0.01-0.08) K/mm3 Sodium (136-145) mEq/L Potassium (3.5-5.1) mEq/L Chloride (98-107) mEq/L Carbon Dioxide (21-32) mEq/L Anion Gap (5-15) BUN (7-18) mg/dL Creatinine (0.55-1.02) mg/dL Est Cr Clr Drug Dosing mL/min Estimated GFR (MDRD) (>60) mL/min BUN/Creatinine Ratio (14-18) Glucose (83-115) mg/dL Calcium (8.5-10.1) mg/dL Magnesium (1.8-2.4) mg/dl Vitamin B12 1203 H (193-986) pg/ml Free T3 pg/mL 1.92 L (2.50-3.90) pg/mL 18 Range/Units 05:55 WBC (3.98-10.04) K/mm3 RBC (3.98-5.22) M/mm3 Hgb (11.2-15.7) gm/L Hct (34.1-44.9) % MCV (79.4-94.8) fl MCH (25.6-32.2) pg MCHC (32.2-35.5) g/dl RDW Std Deviation (36.4-46.3) fL Plt Count (182-369) K/mm3 MPV (9.4-12.3) fl Neut % (Auto) (34.0-71.1) % Lymph % (Auto) (19.3-51.7) % [place] % (Auto) (4.7-12.5) % Eos % (Auto) (0.7-5.8) Baso % (Auto) (0.1-1.2) % Neut # (Auto) (1.56-6.13) K/mm3 Lymph # (Auto) (1.18-3.74) K/mm3 [place] # (Auto) (0.24-0.36) K/mm3 Eos # (Auto) (0.04-0.36) K/mm3 Baso # (Auto) (0.01-0.08) K/mm3 Sodium 136 (136-145) mEq/L Potassium 4.9 (3.5-5.1) mEq/L Chloride 104 (98-107) mEq/L Carbon Dioxide 24 (21-32) mEq/L Anion Gap 12.9 (5-15) BUN 98 H (7-18) mg/dL Creatinine 3.7 H (0.55-1.02) mg/dL Est Cr Clr Drug Dosing 7.84 mL/min Estimated GFR (MDRD) 12 (>60) mL/min BUN/Creatinine Ratio 26.5 H (14-18) Glucose 88 (83-115) mg/dL Calcium 9.3 (8.5-10.1) mg/dL Magnesium 2.0 (1.8-2.4) mg/dl Vitamin B12 (193-986) pg/ml Free T3 pg/mL (2.50-3.90) pg/mL Med Orders - Current: Current Medications Acetaminophen (Tylenol) 650 mg PO Q4H PRN PRN Reason: Pain (Mild 1-3)/fever Hydrocodone Bitart/Acetaminophen ([place] 325-5 Mg) 1 tab PO Q4H PRN PRN Reason: Pain (moderate 4-6) Acyclovir (Zovirax) 400 mg PO BID [facility] Last Admin: 09/28/17 09:55 Dose: 400 mg Albuterol/Ipratropium (Duoneb 3.0-0.5 Mg/3 Ml) 3 ml NEB Q4H PRN PRN Reason: Shortness Of Breath/wheezing Bisacodyl (Dulcolax) 5 mg PO DAILY PRN PRN Reason: Constipation Last Admin: 09/25/17 06:11 Dose: 5 mg Cholecalciferol (Vitamin D3) 2,000 units PO DAILY [facility] Last Admin: 09/28/17 09:54 Dose: 2,000 units Clonidine HCl (Catapres) 0.1 mg PO DAILY [facility] Stop: 10/01/17 10:00 Last Admin: 09/28/17 09:55 Dose: 0.1 mg Clonidine HCl (Catapres) 0.1 mg PO DAILY@1800 PRN PRN Reason: Hypertension Docusate Sodium (Colace) 100 mg PO BID PRN PRN Reason: Constipation Doxazosin Mesylate (Cardura) 16 mg PO BEDTIME [facility] Last Admin: 09/27/17 20:30 Dose: 16 mg Ferrous Sulfate (Ferrous Sulfate) 325 mg PO DAILY@0800 [facility] Last Admin: 09/28/17 09:55 Dose: 325 mg Furosemide (Lasix) 40 mg PO BIDDIURETIC [facility] Last Admin: 09/26/17 06:14 Dose: 40 mg Promethazine HCl 6.25 mg/ (Sodium Chloride) 50.25 mls @ 100 mls/hr IV Q6H PRN PRN Reason: Nausea/Vomiting Lactated Ringer's (Ringers, Lactated) 1,000 mls @ 75 mls/hr IV ASDIRECTED [facility] Last Admin: 09/28/17 03:27 Dose: 75 mls/hr Lorazepam (Ativan) 2 mg IVPUSH Q4H PRN PRN Reason: Seizures Lorazepam (Ativan) 0.25 mg IV Q6H PRN PRN Reason: Anxiety Metoprolol Tartrate (Lopressor) 5 mg IVPUSH Q4H PRN PRN Reason: Tachycardia Minoxidil (Loniten) 2.5 mg PO BID@1200,2100 [facility] Last Admin: 09/28/17 12:51 Dose: Not Given Multivitamins (Thera) 1 each PO BEDTIME [facility] Last Admin: 09/27/17 20:31 Dose: 1 each Ondansetron HCl (Zofran) 4 mg IV Q6H PRN PRN Reason: Nausea/Vomiting Pantoprazole Sodium (Protonix) 40 mg PO DAILY@0700 [facility] Last Admin: 09/28/17 07:03 Dose: 40 mg Cyclophosphamide 25 (Mg) 0 each PO Q2D@0900 [facility] Last Admin: 09/28/17 09:56 Dose: 1 each Dapsone 25 Mg 0 each PO DAILY@1400 [facility] Last Admin: 09/27/17 13:37 Dose: 1 each Polyethylene Glycol (Miralax) 17 gm PO DAILY PRN PRN Reason: Constipation Prednisone (Prednisone) 30 mg PO DAILY@0800 [facility] Last Admin: 09/28/17 09:55 Dose: 30 mg Senna/Docusate Sodium (Senna Plus) 1 tab PO BID PRN PRN Reason: Constipation Last Admin: 09/24/17 17:04 Dose: 1 tab Sodium Bicarbonate (Sodium Bicarbonate) 650 mg PO BID [facility] Last Admin: 09/28/17 09:55 Dose: 650 mg Thiamine HCl (Vitamin B-1) 200 mg IV DAILY [facility] Last Admin: 09/28/17 09:59 Dose: 200 mg Discontinued Medications Alteplase, Recombinant (Activase) Confirm Administered Dose 100 mg .ROUTE .STK- MED ONE Stop: 09/20/17 10:10 Last Admin: 09/21/17 20:29 Dose: Not Given Clonidine HCl (Catapres) 0.1 mg PO Q12H [facility] Last Admin: 09/21/17 19:34 Dose: Not Given Clonidine HCl (Catapres) 0.2 mg PO Q12H [facility] Last Admin: 09/21/17 16:47 Dose: 0.1 mg Clonidine HCl (Catapres) 0.1 mg PO BEDTIME [facility] Stop: 09/28/17 22:00 Last Admin: 09/24/17 20:38 Dose: Not Given Clonidine HCl (Catapres) 0.2 mg PO DAILY [facility] Last Admin: 09/24/17 09:16 Dose: 0.2 mg Clonidine HCl (Catapres) 0.1 mg PO DAILY@1800 [facility] Last Admin: 09/25/17 18:25 Dose: Not Given Ferrous Sulfate (Ferrous Sulfate) 325 mg PO WITHBREAKFAST [facility] Last Admin: 09/23/17 06:00 Dose: 325 mg Furosemide (Lasix) 40 mg PO BID [facility] Last Admin: 09/20/17 21:30 Dose: 40 mg Furosemide (Lasix) 40 mg PO BID [facility] Last Admin: 09/23/17 09:32 Dose: 40 mg Hydralazine HCl (Apresoline) 10 mg IVPUSH Q4H PRN PRN Reason: Hypertension Last Admin: 09/21/17 04:20 Dose: 10 mg Hydralazine HCl (Apresoline) 5 mg IVPUSH Q6H PRN PRN Reason: Hypertension Hydralazine HCl (Apresoline) 5 mg IVPUSH Q6H PRN PRN Reason: Hypertension Last Admin: 09/22/17 05:17 Dose: 5 mg Hydralazine HCl (Apresoline) 5 mg IVPUSH Q6H PRN PRN Reason: Hypertension Last Admin: 09/27/17 06:46 Dose: 5 mg Magnesium Sulfate 2 gm/ Premix 50 mls @ 50 mls/hr IV ONETIME STA Stop: 09/20/17 12:40 Last Admin: 09/20/17 11:47 Dose: 50 mls/hr Sodium Chloride (Normal Saline) 250 mls @ 999 mls/hr IV ONETIME ONE Stop: 09/24/17 13:45 Last Admin: 09/24/17 13:35 Dose: 999 mls/hr Sodium Chloride (Normal Saline) Confirm Administered Dose 250 mls @ as directed .ROUTE .STK-MED ONE Stop: 09/24/17 13:20 Last Admin: 09/24/17 14:50 Dose: Not Given Labetalol HCl (Normodyne) 5 mg IVPUSH Q6H PRN; Protocol PRN Reason: Hypertension Magnesium Sulfate (Pharmacy To Dose - Magnesium Replacement) 0 dose .XX ASDIRECTED PRN PRN Reason: RX TO WATCH MAG LEVELS Minoxidil (Loniten) 2.5 mg PO BID [facility] Last Admin: 09/23/17 09:36 Dose: 2.5 mg Minoxidil (Loniten) 2.5 mg PO NOW STA Stop: 09/22/17 09:13 Last Admin: 09/22/17 11:01 Dose: Not Given Minoxidil (Loniten) 2.5 mg PO BID [facility] Last Admin: 09/24/17 09:16 Dose: 2.5 mg Minoxidil (Loniten) 2.5 mg PO BID [facility] Last Admin: 09/25/17 10:39 Dose: Not Given Nifedipine (Procardia Xl) 15 mg PO BID [facility] Last Admin: 09/22/17 17:15 Dose: Not Given Non-Formulary Medication (Alendronate [Fosamax]) 70 mg PO Tu@0600 [facility] Doxazosin 8 Mg Own (Med) 0 mg PO BEDTIME [facility] Last Admin: 09/20/17 21:30 Dose: 16 mg Acyclovir 400 Mg (Own Med) 0 mg PO BID [facility] Last Admin: 09/20/17 21:30 Dose: 400 mg Non-Formulary Medication (Cranberry [Cranberry]) 1 cap PO DAILY [facility] Sodium Bicarbonate 650 Mg Tab Own Med 0 each PO BID [facility] Last Admin: 09/21/17 09:39 Dose: 1 each Prednisone 20 Mg Tab (Own Med) 0 each PO WITHBREAKFAST [facility] Last Admin: 09/21/17 09:41 Dose: 1.5 each Doxazosin 8 Mg Own (Med) 0 each PO BEDTIME [facility] Acyclovir 400 Mg (Own Med) 0 each PO BID [facility] Last Admin: 09/21/17 09:37 Dose: Not Given Furosemide 40 Mg Tab (Own Meds) 0 each PO BID [facility] Last Admin: 09/21/17 09:39 Dose: Not Given Potassium Chloride (Pharmacy To Dose - Potassium Replacement) 0 dose .XX ASDIRECTED PRN PRN Reason: RX TO WATCH K LEVELS Potassium Chloride (Klor-Con M20) 40 meq PO Q4H [facility] Stop: 09/20/17 22:01 Last Admin: 09/20/17 21:33 Dose: 40 meq Prednisone (Prednisone) 30 mg PO WITHBREAKFAST [facility] Last Admin: 09/21/17 19:33 Dose: Not Given Prednisone (Prednisone) 30 mg PO WITHBREAKFAST [facility] Last Admin: 09/23/17 06:00 Dose: 30 mg Sodium Bicarbonate (Sodium Bicarbonate) 650 mg PO BID [facility] Last Admin: 09/20/17 21:30 Dose: 650 mg - Exam Quality Assessment: DVT Prophylaxis. No: Supplemental Oxygen General: Alert (oriented to person only), Cooperative, No Acute Distress HEENT: Pupils Equal, Pupils Reactive, EOMI, Mucous Membr. Moist/[place]. No: Scleral Icterus Neck: Supple. No: Lymphadenopathy Lungs: Clear to Auscultation, Normal Respiratory Effort. No: Crackles, Rales Cardiovascular: Regular Rate, Regular Rhythm, Murmurs (grade III systolic ) GI/Abdominal Exam: Normal Bowel Sounds, Soft, Non-Tender, No Distention (Female) Exam: Deferred Back Exam: Normal Inspection, Decreased Range of Motion Extremities: Normal Inspection, Normal Range of Motion, Non-Tender, No Pedal Edema, Normal Capillary Refill Peripheral Pulses: 1+: Posterior Tibial (L), Posterior Tibial (R), 2+: Dorsalis Pedis (L), Dorsalis Pedis (R) Skin: Warm, Dry, Intact Neurological: No New Focal Deficit, Cranial Nerves Intact (grossly ) Psy/Mental Status: Alert (to self only ), Normal Affect, Normal Mood - Problem List & Annotations (1) Hypomagnesemia SNOMED Code(s): 034152394 Code(s): E83.42 - HYPOMAGNESEMIA Status: Acute Priority: Medium Current Visit: Yes (2) Lethargy SNOMED Code(s): 080618191 Code(s): R53.83 - OTHER FATIGUE Status: Acute Priority: High Current Visit: Yes (3) Anemia SNOMED Code(s): 332103562 Code(s): D64.9 - ANEMIA, UNSPECIFIED Status: Chronic Priority: Medium Current Visit: Yes Qualifiers: Anemia type: due to chronic kidney disease Chronic kidney disease stage: unspecified stage Qualified Code(s): N18.9 - Chronic kidney disease, unspecified; D63.1 - Anemia in chronic kidney disease (4) Hypertension SNOMED Code(s): 87944836 Code(s): I10 - ESSENTIAL (PRIMARY) HYPERTENSION Status: Chronic Priority : Low Current Visit: No Qualifiers: Hypertension type: unspecified Qualified Code(s): I10 - Essential (primary ) hypertension (5) Kidney disease SNOMED Code(s): 37238002 Code(s): N28.9 - DISORDER OF KIDNEY AND URETER, UNSPECIFIED Status: Chronic Priority: High Current Visit: Yes - Problem List Review Problem List Initiated/Reviewed/Updated: Yes - Plan Plan:: Assessment/Plan: 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 Low this AM and informed him we (the hospital) do not have any other good medications to offer her here if hydralazine is contraindicated -Continue Minoxidil 2.5 mg po BID while we taper off clonidine-->change Catapres pm to prn, maintain remaining regimen; hold Lasix as above. -Dr. Low wants her pressure to be in the 150s-160s systolic - Continue PRN low dose hydralazine 5 mg IVP Q6H for BP > 180/90 mmHg - BP range today (09/28) from 133/57 to 160/81 Acute renal failure on CKD - Cr 4.2--> 4.1 --> today 3.7 - Hold nephrotoxins, hydrate, avoid dehydration - Continue IVF LR at 75 cc/hr Generalized Weakness - Multi-factorial: Anemia, CKD, Hypogmagnesemia, Osteoporosis, Diffuse OA and Medications Side effects - Continue PT/OT - Vit D level-normal - Thyroid Panel-Elevated TSH 4.223 and normal FT4 0.90 - Folic Acid-normal - B12 level-considerably elevated at 1255--> 1203 Severe Memory Impairment - Questionable Early Dementia - Hold off starting her on Aricept/Namenda - Would like for her to be completely off Clonidine Anemia of chronic disease -acute on chronic -Hgb 8.4 today; admit 9.3 -decline likely related to volemic status with IV fluids -No symptoms, new labs tomorrow AM --> consider transfusion if indicated Resolved: S/p Hypomagnesemia - Mg 1.6 --> 2.2 - Likely 2/2 inadequate intake - Replete and monitor Transient Confusion/Delirium - 2/2 Drug Encephalopathy (Clonidine) - No obvious neurological deficits - CT scan/CXR: No acute abnormality - UA and Troponin x 2 both negative - She is baseline but disorientated x 3: Time: Nadine, 1917 Place: Does not know where she is at, Person: Do not know, even with a clue provided - [employer] for cognitive eval: Suggestive of Early Dementia - MMSE Score 14: Severe Cognitive Impairment - Vit D level normal Chronic: Impaired Vision HTN GERD 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 LOS > 96hrs pending placement & HTN mgt.
[2017-09-28] MEDS: Doxazosin 4 MG Tab PO SCH (20:43)
[2017-09-28] MEDS: Multivitamins,Therapeutic Tab PO SCH (20:45)
[2017-09-29] MEDS: Pantoprazole 40 MG Tab.CR PO SCH (06:14)
[2017-09-29] MEDS: Lactated Ringers 1,000 ML IV SCH ×2 (08:04→23:36)
[2017-09-29] MEDS: Acyclovir 200 MG Cap PO SCH ×2 (09:23→20:01)
[2017-09-29] MEDS: Sodium Bicarbonate 650 MG Tab PO SCH ×2 (09:23→20:00)
[2017-09-29] MEDS: predniSONE 10 MG Tab PO SCH (09:23)
[2017-09-29] MEDS: cloNIDine 0.1 MG Tab PO SCH (09:23)
[2017-09-29] MEDS: Thiamine 200 MG/2 ML MDV IV SCH (09:23)
[2017-09-29] MEDS: Ferrous Sulfate 325 MG Tab PO SCH (09:23)
[2017-09-29] MEDS: Cholecalciferol (Vitamin D3) 1,000 Unit Tab PO SCH (09:23)
[2017-09-29] MEDS: Minoxidil 2.5 MG Tab PO SCH ×2 (13:23→19:59)
--- NOTE | 2017-09-29 13:35 | PCM.PN ---
- General Info Date of Service: 09/29/17 Admission Dx/Problem (Free Text): Admission Diagnosis/Problem Admission Diagnosis/Problem Lethargy Subjective Update: In to see Rossy today. She is sitting in a chair. Overall she is doing quite well. She has no complaints besides occasional cough with white sputum production. She has been sleeping well. Good appetite. Baseline confusion but no overt delirium. She states she did not have a BM; I&O record shows 1 BM yesterday. No concerns from nursing. Improved activity level, more alert; clonidine taper will be continued with adjustment of time regimen. Functional Status: Reports: Pain Controlled - Review of Systems General: Reports: No Symptoms. Denies: Fever, Chills HEENT: Reports: No Symptoms Pulmonary: Reports: Cough (improving), Sputum (improving). Denies: Shortness of Breath, Pleuritic Chest Pain, Wheezing Cardiovascular: Reports: No Symptoms. Denies: Chest Pain, Palpitations, Dyspnea on Exertion, Edema Gastrointestinal: Reports: No Symptoms. Denies: Constipation, Diarrhea, Nausea , Vomiting Genitourinary: Reports: No Symptoms. Denies: Dysuria, Frequency, Burning, Pain , Urgency Musculoskeletal: Reports: No Symptoms Skin: Reports: No Symptoms Neurological: Reports: Confusion (at baseline). Denies: Dizziness, Headache Psychiatric: Reports: Confusion (at baseline) - Patient Data Vitals - Most Recent: Last Vital Signs Temp 98.1 F 09/29/17 03:20 Pulse 77 09/29/17 03:20 Resp 16 09/29/17 03:20 BP 145/52 H 09/29/17 13:23 Pulse Ox 96 09/29/17 03:20 Weight - Most Recent: 113 lb 3.2 oz I&O - Last 24 Hours: Intake & Output 09/28/17 09/29/17 09/29/17 22:59 06:59 14:59 Intake Total 1100 909 300 Balance 1100 909 300 Lab Results Last 24 Hours: Laboratory Results - last 24 hr 09/25/17 09/28/17 09/29/17 Range/Units 05:48 14:45 05:55 WBC 6.13 (3.98-10.04) K/mm3 RBC 2.59 L (3.98-5.22) M/mm3 Hgb 8.4 L (11.2-15.7) gm/L Hct 26.2 L (34.1-44.9) % MCV 101.2 H (79.4-94.8) fl MCH 32.4 H (25.6-32.2) pg MCHC 32.1 L (32.2-35.5) g/dl RDW Std Deviation 61.6 H (36.4-46.3) fL Plt Count 117 L (182-369) K/mm3 MPV 10.5 (9.4-12.3) fl Neut % (Auto) 80.8 H (34.0-71.1) % Lymph % (Auto) 11.1 L (19.3-51.7) % Hall % (Auto) 7.0 (4.7-12.5) % Eos % (Auto) 0.2 L (0.7-5.8) Baso % (Auto) 0.2 (0.1-1.2) % Neut # (Auto) 4.96 (1.56-6.13) K/mm3 Lymph # (Auto) 0.68 L (1.18-3.74) K/mm3 Hall # (Auto) 0.43 H (0.24-0.36) K/mm3 Eos # (Auto) 0.01 L (0.04-0.36) K/mm3 Baso # (Auto) 0.01 (0.01-0.08) K/mm3 Sodium (136-145) mEq/L Potassium (3.5-5.1) mEq/L Chloride (98-107) mEq/L Carbon Dioxide (21-32) mEq/L Anion Gap (5-15) BUN (7-18) mg/dL Creatinine (0.55-1.02) mg/dL Est Cr Clr Drug Dosing mL/min Estimated GFR (MDRD) (>60) mL/min BUN/Creatinine Ratio (14-18) Glucose (83-115) mg/dL Calcium (8.5-10.1) mg/dL Magnesium (1.8-2.4) mg/dl C-Reactive Protein (<1.0) mg/dL NT-Pro-B Natriuret Pep 2377 H (0-450) pg/mL Thyroxine (T4) 5.4 (4.5-12.0) ug/dL 09/29/17 09/29/17 09/29/17 Range/Units 05:55 05:55 12:45 WBC (3.98-10.04) K/mm3 RBC (3.98-5.22) M/mm3 Hgb (11.2-15.7) gm/L Hct (34.1-44.9) % MCV (79.4-94.8) fl MCH (25.6-32.2) pg MCHC (32.2-35.5) g/dl RDW Std Deviation (36.4-46.3) fL Plt Count (182-369) K/mm3 MPV (9.4-12.3) fl Neut % (Auto) (34.0-71.1) % Lymph % (Auto) (19.3-51.7) % Hall % (Auto) (4.7-12.5) % Eos % (Auto) (0.7-5.8) Baso % (Auto) (0.1-1.2) % Neut # (Auto) (1.56-6.13) K/mm3 Lymph # (Auto) (1.18-3.74) K/mm3 Hall # (Auto) (0.24-0.36) K/mm3 Eos # (Auto) (0.04-0.36) K/mm3 Baso # (Auto) (0.01-0.08) K/mm3 Sodium 137 (136-145) mEq/L Potassium 5.3 H 4.6 (3.5-5.1) mEq/L Chloride 106 (98-107) mEq/L Carbon Dioxide 26 (21-32) mEq/L Anion Gap 10.3 (5-15) BUN 93 H (7-18) mg/dL Creatinine 3.8 H (0.55-1.02) mg/dL Est Cr Clr Drug Dosing 7.63 mL/min Estimated GFR (MDRD) 11 (>60) mL/min BUN/Creatinine Ratio 24.5 H (14-18) Glucose 95 (83-115) mg/dL Calcium 9.3 (8.5-10.1) mg/dL Magnesium 2.0 (1.8-2.4) mg/dl C-Reactive Protein < 0.2 (<1.0) mg/dL NT-Pro-B Natriuret Pep 2254 H (0-450) pg/mL Thyroxine (T4) (4.5-12.0) ug/dL Med Orders - Current: Current Medications Acetaminophen (Tylenol) 650 mg PO Q4H PRN PRN Reason: Pain (Mild 1-3)/fever Hydrocodone Bitart/Acetaminophen ([place] 325-5 Mg) 1 tab PO Q4H PRN PRN Reason: Pain (moderate 4-6) Acyclovir (Zovirax) 400 mg PO BID [facility] Last Admin: 09/29/17 09:23 Dose: 400 mg Albuterol/Ipratropium (Duoneb 3.0-0.5 Mg/3 Ml) 3 ml NEB Q4H PRN PRN Reason: Shortness Of Breath/wheezing Bisacodyl (Dulcolax) 5 mg PO DAILY PRN PRN Reason: Constipation Last Admin: 09/25/17 06:11 Dose: 5 mg Cholecalciferol (Vitamin D3) 2,000 units PO DAILY [facility] Last Admin: 09/29/17 09:23 Dose: 2,000 units Clonidine HCl (Catapres) 0.1 mg PO DAILY [facility] Stop: 10/01/17 10:00 Last Admin: 09/29/17 09:23 Dose: Not Given Clonidine HCl (Catapres) 0.1 mg PO DAILY@1800 PRN PRN Reason: Hypertension Docusate Sodium (Colace) 100 mg PO BID PRN PRN Reason: Constipation Doxazosin Mesylate (Cardura) 16 mg PO BEDTIME [facility] Last Admin: 09/28/17 20:43 Dose: 16 mg Ferrous Sulfate (Ferrous Sulfate) 325 mg PO DAILY@0800 [facility] Last Admin: 09/29/17 09:23 Dose: 325 mg Furosemide (Lasix) 40 mg PO BIDDIURETIC [facility] Last Admin: 09/26/17 06:14 Dose: 40 mg Promethazine HCl 6.25 mg/ (Sodium Chloride) 50.25 mls @ 100 mls/hr IV Q6H PRN PRN Reason: Nausea/Vomiting Lactated Ringer's (Ringers, Lactated) 1,000 mls @ 75 mls/hr IV ASDIRECTED [facility] Last Admin: 09/29/17 08:04 Dose: 75 mls/hr Lorazepam (Ativan) 2 mg IVPUSH Q4H PRN PRN Reason: Seizures Lorazepam (Ativan) 0.25 mg IV Q6H PRN PRN Reason: Anxiety Metoprolol Tartrate (Lopressor) 5 mg IVPUSH Q4H PRN PRN Reason: Tachycardia Minoxidil (Loniten) 2.5 mg PO BID@1200,2100 [facility] Last Admin: 09/29/17 13:23 Dose: 2.5 mg Multivitamins (Thera) 1 each PO BEDTIME [facility] Last Admin: 09/28/17 20:45 Dose: 1 each Ondansetron HCl (Zofran) 4 mg IV Q6H PRN PRN Reason: Nausea/Vomiting Pantoprazole Sodium (Protonix) 40 mg PO DAILY@0700 [facility] Last Admin: 09/29/17 06:14 Dose: 40 mg Cyclophosphamide 25 (Mg) 0 each PO Q2D@0900 [facility] Last Admin: 09/28/17 09:56 Dose: 1 each Dapsone 25 Mg 0 each PO DAILY@1400 [facility] Last Admin: 09/28/17 16:09 Dose: 1 each Polyethylene Glycol (Miralax) 17 gm PO DAILY PRN PRN Reason: Constipation Prednisone (Prednisone) 30 mg PO DAILY@0800 [facility] Last Admin: 09/29/17 09:23 Dose: 30 mg Senna/Docusate Sodium (Senna Plus) 1 tab PO BID PRN PRN Reason: Constipation Last Admin: 09/24/17 17:04 Dose: 1 tab Sodium Bicarbonate (Sodium Bicarbonate) 650 mg PO BID [facility] Last Admin: 09/29/17 09:23 Dose: 650 mg Thiamine HCl (Vitamin B-1) 100 mg PO DAILY [facility] Discontinued Medications Alteplase, Recombinant (Activase) Confirm Administered Dose 100 mg .ROUTE .STK- MED ONE Stop: 09/20/17 10:10 Last Admin: 09/21/17 20:29 Dose: Not Given Clonidine HCl (Catapres) 0.1 mg PO Q12H [facility] Last Admin: 09/21/17 19:34 Dose: Not Given Clonidine HCl (Catapres) 0.2 mg PO Q12H [facility] Last Admin: 09/21/17 16:47 Dose: 0.1 mg Clonidine HCl (Catapres) 0.1 mg PO BEDTIME [facility] Stop: 09/28/17 22:00 Last Admin: 09/24/17 20:38 Dose: Not Given Clonidine HCl (Catapres) 0.2 mg PO DAILY [facility] Last Admin: 09/24/17 09:16 Dose: 0.2 mg Clonidine HCl (Catapres) 0.1 mg PO DAILY@1800 [facility] Last Admin: 09/25/17 18:25 Dose: Not Given Ferrous Sulfate (Ferrous Sulfate) 325 mg PO WITHBREAKFAST [facility] Last Admin: 09/23/17 06:00 Dose: 325 mg Furosemide (Lasix) 40 mg PO BID [facility] Last Admin: 09/20/17 21:30 Dose: 40 mg Furosemide (Lasix) 40 mg PO BID [facility] Last Admin: 09/23/17 09:32 Dose: 40 mg Hydralazine HCl (Apresoline) 10 mg IVPUSH Q4H PRN PRN Reason: Hypertension Last Admin: 09/21/17 04:20 Dose: 10 mg Hydralazine HCl (Apresoline) 5 mg IVPUSH Q6H PRN PRN Reason: Hypertension Hydralazine HCl (Apresoline) 5 mg IVPUSH Q6H PRN PRN Reason: Hypertension Last Admin: 09/22/17 05:17 Dose: 5 mg Hydralazine HCl (Apresoline) 5 mg IVPUSH Q6H PRN PRN Reason: Hypertension Last Admin: 09/27/17 06:46 Dose: 5 mg Magnesium Sulfate 2 gm/ Premix 50 mls @ 50 mls/hr IV ONETIME STA Stop: 09/20/17 12:40 Last Admin: 09/20/17 11:47 Dose: 50 mls/hr Sodium Chloride (Normal Saline) 250 mls @ 999 mls/hr IV ONETIME ONE Stop: 09/24/17 13:45 Last Admin: 09/24/17 13:35 Dose: 999 mls/hr Sodium Chloride (Normal Saline) Confirm Administered Dose 250 mls @ as directed .ROUTE .STK-MED ONE Stop: 09/24/17 13:20 Last Admin: 09/24/17 14:50 Dose: Not Given Labetalol HCl (Normodyne) 5 mg IVPUSH Q6H PRN; Protocol PRN Reason: Hypertension Magnesium Sulfate (Pharmacy To Dose - Magnesium Replacement) 0 dose .XX ASDIRECTED PRN PRN Reason: RX TO WATCH MAG LEVELS Minoxidil (Loniten) 2.5 mg PO BID [facility] Last Admin: 09/23/17 09:36 Dose: 2.5 mg Minoxidil (Loniten) 2.5 mg PO NOW [facility] Stop: 09/22/17 09:13 Last Admin: 09/22/17 11:01 Dose: Not Given Minoxidil (Loniten) 2.5 mg PO BID [facility] Last Admin: 09/24/17 09:16 Dose: 2.5 mg Minoxidil (Loniten) 2.5 mg PO BID [facility] Last Admin: 09/25/17 10:39 Dose: Not Given Nifedipine (Procardia Xl) 15 mg PO BID [facility] Last Admin: 09/22/17 17:15 Dose: Not Given Non-Formulary Medication (Alendronate [Fosamax]) 70 mg PO Tu@0600 [facility] Doxazosin 8 Mg Own (Med) 0 mg PO BEDTIME [facility] Last Admin: 09/20/17 21:30 Dose: 16 mg Acyclovir 400 Mg (Own Med) 0 mg PO BID [facility] Last Admin: 09/20/17 21:30 Dose: 400 mg Non-Formulary Medication (Cranberry [Cranberry]) 1 cap PO DAILY [facility] Sodium Bicarbonate 650 Mg Tab Own Med 0 each PO BID [facility] Last Admin: 09/21/17 09:39 Dose: 1 each Prednisone 20 Mg Tab (Own Med) 0 each PO WITHBREAKFAST [facility] Last Admin: 09/21/17 09:41 Dose: 1.5 each Doxazosin 8 Mg Own (Med) 0 each PO BEDTIME [facility] Acyclovir 400 Mg (Own Med) 0 each PO BID [facility] Last Admin: 09/21/17 09:37 Dose: Not Given Furosemide 40 Mg Tab (Own Meds) 0 each PO BID [facility] Last Admin: 09/21/17 09:39 Dose: Not Given Potassium Chloride (Pharmacy To Dose - Potassium Replacement) 0 dose .XX ASDIRECTED PRN PRN Reason: RX TO WATCH K LEVELS Potassium Chloride (Klor-Con M20) 40 meq PO Q4H [facility] Stop: 09/20/17 22:01 Last Admin: 09/20/17 21:33 Dose: 40 meq Prednisone (Prednisone) 30 mg PO WITHBREAKFAST [facility] Last Admin: 09/21/17 19:33 Dose: Not Given Prednisone (Prednisone) 30 mg PO WITHBREAKFAST [facility] Last Admin: 09/23/17 06:00 Dose: 30 mg Sodium Bicarbonate (Sodium Bicarbonate) 650 mg PO BID [facility] Last Admin: 09/20/17 21:30 Dose: 650 mg Thiamine HCl (Vitamin B-1) 200 mg IV DAILY [facility] Last Admin: 09/29/17 09:23 Dose: Not Given - Exam Quality Assessment: DVT Prophylaxis. No: Supplemental Oxygen General: Alert (oriented to person only), Cooperative, No Acute Distress HEENT: Pupils Equal, Pupils Reactive, EOMI, Mucous Membr. Moist/[place] Neck: Supple Lungs: Clear to Auscultation, Normal Respiratory Effort Cardiovascular: Regular Rate, Regular Rhythm, Murmurs (grade III systolic) GI/Abdominal Exam: Normal Bowel Sounds, Soft, Non-Tender, No Organomegaly, No Distention, No Abnormal Bruit, No Mass, Pelvis Stable (Female) Exam: Deferred Back Exam: Normal Inspection, Decreased Range of Motion Extremities: Normal Inspection, Normal Range of Motion, Non-Tender, No Pedal Edema, Normal Capillary Refill Peripheral Pulses: 1+: Posterior Tibial (L), Posterior Tibial (R), Dorsalis Pedis (L), Dorsalis Pedis (R) Skin: Warm, Dry, Intact Neurological: No New Focal Deficit, Cranial Nerves Intact (grossly) Psy/Mental Status: Alert (oriented to self only), Normal Affect, Normal Mood - Problem List & Annotations (1) Hypomagnesemia SNOMED Code(s): 076633065 Code(s): E83.42 - HYPOMAGNESEMIA Status: Acute Priority: Medium Current Visit: Yes (2) Lethargy SNOMED Code(s): 155686664 Code(s): R53.83 - OTHER FATIGUE Status: Acute Priority: High Current Visit: Yes (3) Anemia SNOMED Code(s): 728812343 Code(s): D64.9 - ANEMIA, UNSPECIFIED Status: Chronic Priority: Medium Current Visit: Yes Qualifiers: Anemia type: due to chronic kidney disease Chronic kidney disease stage: unspecified stage Qualified Code(s): N18.9 - Chronic kidney disease, unspecified; D63.1 - Anemia in chronic kidney disease (4) Hypertension SNOMED Code(s): 03708913 Code(s): I10 - ESSENTIAL (PRIMARY) HYPERTENSION Status: Chronic Priority : Low Current Visit: No Qualifiers: Hypertension type: unspecified Qualified Code(s): I10 - Essential (primary ) hypertension (5) Kidney disease SNOMED Code(s): 05499339 Code(s): N28.9 - DISORDER OF KIDNEY AND URETER, UNSPECIFIED Status: Chronic Priority: High Current Visit: Yes - Problem List Review Problem List Initiated/Reviewed/Updated: Yes - My Orders Last 24 Hours: My Active Orders 09/30/17 05:11 BASIC METABOLIC PANEL,BMP [CHEM] AM CBC WITH AUTO DIFF [HEME] AM CRP [C-REACTIVE PROTEIN] [CHEM] AM MAGNESIUM [CHEM] AM 10/01/17 05:11 BASIC METABOLIC PANEL,BMP [CHEM] AM CBC WITH AUTO DIFF [HEME] AM CRP [C-REACTIVE PROTEIN] [CHEM] AM MAGNESIUM [CHEM] AM - Plan Plan:: Assessment/Plan: 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 Low this AM and informed him we (the hospital) do not have any other good medications to offer her here if hydralazine is contraindicated -Continue Minoxidil 2.5 mg po BID while we taper off clonidine-->change Catapres pm to prn, maintain remaining regimen; hold Lasix as above. -Dr. Low wants her pressure to be in the 150s-160s systolic - Continue PRN low dose hydralazine 5 mg IVP Q6H for BP > 180/90 mmHg - BP range today (09/28) from 133/57 to 160/81 Acute renal failure on CKD - Cr 4.2--> 3.8 - Hold nephrotoxins, hydrate, avoid dehydration - Continue IVF LR at 75 cc/hr Generalized Weakness - Multi-factorial: Anemia, CKD, Hypogmagnesemia, Osteoporosis, Diffuse OA and Medications Side effects - Continue PT/OT - Vit D level-normal - Thyroid Panel-Elevated TSH 4.223 and normal FT4 0.90 - Folic Acid-normal - B12 level-considerably elevated at 1255--> 1203 Severe Memory Impairment - Questionable Early Dementia - Hold off starting her on Aricept/Namenda - Would like for her to be completely off Clonidine Anemia of chronic disease -acute on chronic -Hgb 8.4 today; admit 9.3 -decline likely related to volemic status with IV fluids -No symptoms, new labs tomorrow AM --> consider transfusion if indicated Resolved: S/p Hypomagnesemia - Mg 1.6 --> 2.2 - Likely 2/2 inadequate intake - Replete and monitor Transient Confusion/Delirium - 2/2 Drug Encephalopathy (Clonidine) - No obvious neurological deficits - CT scan/CXR: No acute abnormality - UA and Troponin x 2 both negative - She is baseline but disorientated x 3: Time: July, Place: Does not know where she is at, Person: Do not know, even with a clue provided - E LEARNING SPECIALIST for cognitive eval: Suggestive of Early Dementia - MMSE Score 14: Severe Cognitive Impairment - Vit D level normal Chronic: Impaired Vision HTN GERD 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 LOS > 96hrs pending placement & HTN mgt.
[2017-09-29] MEDS: Doxazosin 4 MG Tab PO SCH (20:00)
[2017-09-29] MEDS: Multivitamins,Therapeutic Tab PO SCH (20:00)
[2017-09-30] MEDS: Pantoprazole 40 MG Tab.CR PO SCH (06:19)
[2017-09-30] MEDS: cloNIDine 0.1 MG Tab PO SCH (08:16)
[2017-09-30] MEDS: Cholecalciferol (Vitamin D3) 1,000 Unit Tab PO SCH (08:17)
[2017-09-30] MEDS: predniSONE 10 MG Tab PO SCH (08:17)
[2017-09-30] MEDS: Ferrous Sulfate 325 MG Tab PO SCH (08:17)
[2017-09-30] MEDS: Thiamine 100 MG Tab PO SCH (08:17)
[2017-09-30] MEDS: Acyclovir 200 MG Cap PO SCH ×2 (08:17→21:23)
[2017-09-30] MEDS: Sodium Bicarbonate 650 MG Tab PO SCH ×2 (08:17→21:23)
[2017-09-30] MEDS: CYCLOPHOSPHAMIDE 25 MG PO SCH (08:18)
[2017-09-30] MEDS: Minoxidil 2.5 MG Tab PO SCH ×2 (11:20→21:23)
[2017-09-30] MEDS: Lactated Ringers 1,000 ML IV SCH (12:16)
--- NOTE | 2017-09-30 13:45 | PCM.PN ---
- General Info Date of Service: 09/30/17 Admission Dx/Problem (Free Text): Admission Diagnosis/Problem Admission Diagnosis/Problem Lethargy Subjective Update: In to see Rossy today. She is sitting in a chair. Overall she is doing quite well. Improved activity level, more alert; clonidine taper will be continued with adjustment of time regimen. She has no complaints. She has been sleeping well. Good appetite. Baseline confusion but no overt delirium. No concerns from nursing. Her Hgb is markedly low at 8.2, but she is not symptomatic at this time. We will order a Hemoccult. Currently waiting on those results before considering giving a blood transfusion. Functional Status: Reports: Pain Controlled, Tolerating Diet, Ambulating, Urinating - Review of Systems General: Reports: No Symptoms. Denies: Fever, Chills HEENT: Reports: No Symptoms Pulmonary: Reports: No Symptoms. Denies: Shortness of Breath, Cough Cardiovascular: Reports: No Symptoms Gastrointestinal: Reports: No Symptoms Genitourinary: Reports: No Symptoms. Denies: Dysuria, Frequency, Burning, Pain , Urgency Musculoskeletal: Reports: No Symptoms Skin: Reports: No Symptoms Neurological: Reports: No Symptoms, Confusion (oriented to person and place- at baseline) Psychiatric: Reports: No Symptoms, Confusion (oriented to person and place- at baseline) - Patient Data Vitals - Most Recent: Last Vital Signs Temp 97.7 F 09/30/17 08:12 Pulse 81 09/30/17 08:13 Resp 16 09/30/17 08:13 BP 131/73 09/30/17 11:20 Pulse Ox 95 09/30/17 08:13 Weight - Most Recent: 118 lb 3.2 oz I&O - Last 24 Hours: Intake & Output 09/29/17 09/30/17 09/30/17 22:59 06:59 14:59 Intake Total 1550 1637 180 Balance 1550 1637 180 Lab Results Last 24 Hours: Laboratory Results - last 24 hr 09/30/17 09/30/17 Range/Units 06:00 06:00 WBC 5.16 (3.98-10.04) K/mm3 RBC 2.57 L (3.98-5.22) M/mm3 Hgb 8.2 L (11.2-15.7) gm/L Hct 26.0 L (34.1-44.9) % MCV 101.2 H (79.4-94.8) fl MCH 31.9 (25.6-32.2) pg MCHC 31.5 L (32.2-35.5) g/dl RDW Std Deviation 60.7 H (36.4-46.3) fL Plt Count 115 L (182-369) K/mm3 MPV 10.9 (9.4-12.3) fl Neut % (Auto) 73.2 H (34.0-71.1) % Lymph % (Auto) 17.1 L (19.3-51.7) % [place] % (Auto) 8.1 (4.7-12.5) % Eos % (Auto) 0.2 L (0.7-5.8) Baso % (Auto) 0.0 L (0.1-1.2) % Neut # (Auto) 3.78 (1.56-6.13) K/mm3 Lymph # (Auto) 0.88 L (1.18-3.74) K/mm3 [place] # (Auto) 0.42 H (0.24-0.36) K/mm3 Eos # (Auto) 0.01 L (0.04-0.36) K/mm3 Baso # (Auto) 0.00 L (0.01-0.08) K/mm3 Sodium 136 (136-145) mEq/L Potassium 5.2 H (3.5-5.1) mEq/L Chloride 106 (98-107) mEq/L Carbon Dioxide 24 (21-32) mEq/L Anion Gap 11.2 (5-15) BUN 91 H (7-18) mg/dL Creatinine 3.6 H (0.55-1.02) mg/dL Est Cr Clr Drug Dosing 8.06 mL/min Estimated GFR (MDRD) 12 (>60) mL/min BUN/Creatinine Ratio 25.3 H (14-18) Glucose 87 (83-115) mg/dL Calcium 9.2 (8.5-10.1) mg/dL Magnesium 1.9 (1.8-2.4) mg/dl C-Reactive Protein < 0.2 (<1.0) mg/dL Med Orders - Current: Current Medications Acetaminophen (Tylenol) 650 mg PO Q4H PRN PRN Reason: Pain (Mild 1-3)/fever Hydrocodone Bitart/Acetaminophen ([place] 325-5 Mg) 1 tab PO Q4H PRN PRN Reason: Pain (moderate 4-6) Acyclovir (Zovirax) 400 mg PO BID [facility] Last Admin: 09/30/17 08:17 Dose: 400 mg Albuterol/Ipratropium (Duoneb 3.0-0.5 Mg/3 Ml) 3 ml NEB Q4H PRN PRN Reason: Shortness Of Breath/wheezing Bisacodyl (Dulcolax) 5 mg PO DAILY PRN PRN Reason: Constipation Last Admin: 09/25/17 06:11 Dose: 5 mg Cholecalciferol (Vitamin D3) 2,000 units PO DAILY [facility] Last Admin: 09/30/17 08:17 Dose: 2,000 units Clonidine HCl (Catapres) 0.1 mg PO DAILY [facility] Stop: 10/01/17 10:00 Last Admin: 09/30/17 08:16 Dose: 0.1 mg Clonidine HCl (Catapres) 0.1 mg PO DAILY@1800 PRN PRN Reason: Hypertension Docusate Sodium (Colace) 100 mg PO BID PRN PRN Reason: Constipation Doxazosin Mesylate (Cardura) 16 mg PO BEDTIME [facility] Last Admin: 09/29/17 20:00 Dose: 16 mg Ferrous Sulfate (Ferrous Sulfate) 325 mg PO DAILY@0800 [facility] Last Admin: 09/30/17 08:17 Dose: 325 mg Furosemide (Lasix) 40 mg PO BIDDIURETIC [facility] Last Admin: 09/26/17 06:14 Dose: 40 mg Promethazine HCl 6.25 mg/ (Sodium Chloride) 50.25 mls @ 100 mls/hr IV Q6H PRN PRN Reason: Nausea/Vomiting Lactated Ringer's (Ringers, Lactated) 1,000 mls @ 75 mls/hr IV ASDIRECTED [facility] Last Admin: 09/30/17 12:16 Dose: 75 mls/hr Lorazepam (Ativan) 2 mg IVPUSH Q4H PRN PRN Reason: Seizures Lorazepam (Ativan) 0.25 mg IV Q6H PRN PRN Reason: Anxiety Metoprolol Tartrate (Lopressor) 5 mg IVPUSH Q4H PRN PRN Reason: Tachycardia Minoxidil (Loniten) 2.5 mg PO BID@1200,2100 [facility] Last Admin: 09/30/17 11:20 Dose: Not Given Multivitamins (Thera) 1 each PO BEDTIME [facility] Last Admin: 09/29/17 20:00 Dose: 1 each Ondansetron HCl (Zofran) 4 mg IV Q6H PRN PRN Reason: Nausea/Vomiting Pantoprazole Sodium (Protonix) 40 mg PO DAILY@0700 [facility] Last Admin: 09/30/17 06:19 Dose: 40 mg Cyclophosphamide 25 (Mg) 0 each PO Q2D@0900 [facility] Last Admin: 09/30/17 08:18 Dose: 1 each Dapsone 25 Mg 0 each PO DAILY@1400 [facility] Last Admin: 09/30/17 13:34 Dose: 1 each Polyethylene Glycol (Miralax) 17 gm PO DAILY PRN PRN Reason: Constipation Prednisone (Prednisone) 30 mg PO DAILY@0800 [facility] Last Admin: 09/30/17 08:17 Dose: 30 mg Senna/Docusate Sodium (Senna Plus) 1 tab PO BID PRN PRN Reason: Constipation Last Admin: 09/24/17 17:04 Dose: 1 tab Sodium Bicarbonate (Sodium Bicarbonate) 650 mg PO BID [facility] Last Admin: 09/30/17 08:17 Dose: 650 mg Thiamine HCl (Vitamin B-1) 100 mg PO DAILY [facility] Last Admin: 09/30/17 08:17 Dose: 100 mg Discontinued Medications Alteplase, Recombinant (Activase) Confirm Administered Dose 100 mg .ROUTE .STK- MED ONE Stop: 09/20/17 10:10 Last Admin: 09/21/17 20:29 Dose: Not Given Clonidine HCl (Catapres) 0.1 mg PO Q12H [facility] Last Admin: 09/21/17 19:34 Dose: Not Given Clonidine HCl (Catapres) 0.2 mg PO Q12H [facility] Last Admin: 09/21/17 16:47 Dose: 0.1 mg Clonidine HCl (Catapres) 0.1 mg PO BEDTIME [facility] Stop: 09/28/17 22:00 Last Admin: 09/24/17 20:38 Dose: Not Given Clonidine HCl (Catapres) 0.2 mg PO DAILY [facility] Last Admin: 09/24/17 09:16 Dose: 0.2 mg Clonidine HCl (Catapres) 0.1 mg PO DAILY@1800 [facility] Last Admin: 09/25/17 18:25 Dose: Not Given Ferrous Sulfate (Ferrous Sulfate) 325 mg PO WITHBREAKFAST [facility] Last Admin: 09/23/17 06:00 Dose: 325 mg Furosemide (Lasix) 40 mg PO BID [facility] Last Admin: 09/20/17 21:30 Dose: 40 mg Furosemide (Lasix) 40 mg PO BID [facility] Last Admin: 09/23/17 09:32 Dose: 40 mg Hydralazine HCl (Apresoline) 10 mg IVPUSH Q4H PRN PRN Reason: Hypertension Last Admin: 09/21/17 04:20 Dose: 10 mg Hydralazine HCl (Apresoline) 5 mg IVPUSH Q6H PRN PRN Reason: Hypertension Hydralazine HCl (Apresoline) 5 mg IVPUSH Q6H PRN PRN Reason: Hypertension Last Admin: 09/22/17 05:17 Dose: 5 mg Hydralazine HCl (Apresoline) 5 mg IVPUSH Q6H PRN PRN Reason: Hypertension Last Admin: 09/27/17 06:46 Dose: 5 mg Magnesium Sulfate 2 gm/ Premix 50 mls @ 50 mls/hr IV ONETIME STA Stop: 09/20/17 12:40 Last Admin: 09/20/17 11:47 Dose: 50 mls/hr Sodium Chloride (Normal Saline) 250 mls @ 999 mls/hr IV ONETIME ONE Stop: 09/24/17 13:45 Last Admin: 09/24/17 13:35 Dose: 999 mls/hr Sodium Chloride (Normal Saline) Confirm Administered Dose 250 mls @ as directed .ROUTE .STK-MED ONE Stop: 09/24/17 13:20 Last Admin: 09/24/17 14:50 Dose: Not Given Labetalol HCl (Normodyne) 5 mg IVPUSH Q6H PRN; Protocol PRN Reason: Hypertension Magnesium Sulfate (Pharmacy To Dose - Magnesium Replacement) 0 dose .XX ASDIRECTED PRN PRN Reason: RX TO WATCH MAG LEVELS Minoxidil (Loniten) 2.5 mg PO BID [facility] Last Admin: 09/23/17 09:36 Dose: 2.5 mg Minoxidil (Loniten) 2.5 mg PO NOW STA Stop: 09/22/17 09:13 Last Admin: 09/22/17 11:01 Dose: Not Given Minoxidil (Loniten) 2.5 mg PO BID [facility] Last Admin: 09/24/17 09:16 Dose: 2.5 mg Minoxidil (Loniten) 2.5 mg PO BID [facility] Last Admin: 09/25/17 10:39 Dose: Not Given Nifedipine (Procardia Xl) 15 mg PO BID [facility] Last Admin: 09/22/17 17:15 Dose: Not Given Non-Formulary Medication (Alendronate [Fosamax]) 70 mg PO Tu@0600 [facility] Doxazosin 8 Mg Own (Med) 0 mg PO BEDTIME [facility] Last Admin: 09/20/17 21:30 Dose: 16 mg Acyclovir 400 Mg (Own Med) 0 mg PO BID [facility] Last Admin: 09/20/17 21:30 Dose: 400 mg Non-Formulary Medication (Cranberry [Cranberry]) 1 cap PO DAILY [facility] Sodium Bicarbonate 650 Mg Tab Own Med 0 each PO BID [facility] Last Admin: 09/21/17 09:39 Dose: 1 each Prednisone 20 Mg Tab (Own Med) 0 each PO WITHBREAKFAST [facility] Last Admin: 09/21/17 09:41 Dose: 1.5 each Doxazosin 8 Mg Own (Med) 0 each PO BEDTIME [facility] Acyclovir 400 Mg (Own Med) 0 each PO BID [facility] Last Admin: 09/21/17 09:37 Dose: Not Given Furosemide 40 Mg Tab (Own Meds) 0 each PO BID [facility] Last Admin: 09/21/17 09:39 Dose: Not Given Potassium Chloride (Pharmacy To Dose - Potassium Replacement) 0 dose .XX ASDIRECTED PRN PRN Reason: RX TO WATCH K LEVELS Potassium Chloride (Klor-Con M20) 40 meq PO Q4H [facility] Stop: 09/20/17 22:01 Last Admin: 09/20/17 21:33 Dose: 40 meq Prednisone (Prednisone) 30 mg PO WITHBREAKFAST [facility] Last Admin: 09/21/17 19:33 Dose: Not Given Prednisone (Prednisone) 30 mg PO WITHBREAKFAST [facility] Last Admin: 09/23/17 06:00 Dose: 30 mg Sodium Bicarbonate (Sodium Bicarbonate) 650 mg PO BID [facility] Last Admin: 09/20/17 21:30 Dose: 650 mg Thiamine HCl (Vitamin B-1) 200 mg IV DAILY [facility] Last Admin: 09/29/17 09:23 Dose: Not Given - Exam Quality Assessment: DVT Prophylaxis. No: Supplemental Oxygen General: Alert, Oriented (to person and place), Cooperative, No Acute Distress HEENT: Pupils Equal, Pupils Reactive, EOMI, Mucous Membr. Moist/[place] Neck: Supple Lungs: Clear to Auscultation, Normal Respiratory Effort Cardiovascular: Regular Rate, Regular Rhythm GI/Abdominal Exam: Normal Bowel Sounds, Soft, Non-Tender, No Organomegaly, No Distention, No Abnormal Bruit, No Mass, Pelvis Stable (Female) Exam: Deferred Back Exam: Normal Inspection, Full Range of Motion Extremities: Normal Inspection, Normal Range of Motion, Non-Tender, No Pedal Edema, Normal Capillary Refill Peripheral Pulses: 1+: Posterior Tibial (L), Posterior Tibial (R), Dorsalis Pedis (L), Dorsalis Pedis (R) Skin: Warm, Dry, Intact Neurological: No New Focal Deficit Psy/Mental Status: Alert, Normal Affect, Normal Mood, Other (oriented to person and place- at baseline) - Problem List & Annotations (1) Hypomagnesemia SNOMED Code(s): 942331709 Code(s): E83.42 - HYPOMAGNESEMIA Status: Acute Priority: Medium Current Visit: Yes (2) Lethargy SNOMED Code(s): 917995279 Code(s): R53.83 - OTHER FATIGUE Status: Acute Priority: High Current Visit: Yes (3) Anemia SNOMED Code(s): 928512764 Code(s): D64.9 - ANEMIA, UNSPECIFIED Status: Chronic Priority: Medium Current Visit: Yes Qualifiers: Anemia type: due to chronic kidney disease Chronic kidney disease stage: unspecified stage Qualified Code(s): N18.9 - Chronic kidney disease, unspecified; D63.1 - Anemia in chronic kidney disease (4) Hypertension SNOMED Code(s): 55434995 Code(s): I10 - ESSENTIAL (PRIMARY) HYPERTENSION Status: Chronic Priority : Low Current Visit: No Qualifiers: Hypertension type: unspecified Qualified Code(s): I10 - Essential (primary ) hypertension (5) Kidney disease SNOMED Code(s): 42406318 Code(s): N28.9 - DISORDER OF KIDNEY AND URETER, UNSPECIFIED Status: Chronic Priority: High Current Visit: Yes - Problem List Review Problem List Initiated/Reviewed/Updated: Yes - My Orders Last 24 Hours: My Active Orders 09/30/17 10:01 OCCULT BLOOD DIAGNOSTIC [OP] Routine 09/30/17 13:33 POTASSIUM,K [CHEM] Routine 09/30/17 Dinner Renal Non-Dialysis Diet [DIET] 10/01/17 05:11 BASIC METABOLIC PANEL,BMP [CHEM] AM CBC WITH AUTO DIFF [HEME] AM CRP [C-REACTIVE PROTEIN] [CHEM] AM MAGNESIUM [CHEM] AM 10/02/17 05:11 BASIC METABOLIC PANEL,BMP [CHEM] AM CBC WITH AUTO DIFF [HEME] AM CRP [C-REACTIVE PROTEIN] [CHEM] AM MAGNESIUM [CHEM] AM 10/03/17 05:11 BASIC METABOLIC PANEL,BMP [CHEM] AM CBC WITH AUTO DIFF [HEME] AM CRP [C-REACTIVE PROTEIN] [CHEM] AM MAGNESIUM [CHEM] AM 10/04/17 05:11 BASIC METABOLIC PANEL,BMP [CHEM] AM CBC WITH AUTO DIFF [HEME] AM CRP [C-REACTIVE PROTEIN] [CHEM] AM MAGNESIUM [CHEM] AM - Plan Plan:: Assessment/Plan: 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 Low this AM and informed him we (the hospital) do not have any other good medications to offer her here if hydralazine is contraindicated -Continue Minoxidil 2.5 mg po BID while we taper off clonidine-->change Catapres pm to prn, maintain remaining regimen; hold Lasix as above. -Dr. Low wants her pressure to be in the 150s-160s systolic - Continue PRN low dose hydralazine 5 mg IVP Q6H for BP > 180/90 mmHg - BP range today (09/28) from 133/57 to 160/81 Acute renal failure on CKD - Cr 4.2--> 3.8 - Hold nephrotoxins, hydrate, avoid dehydration - Continue IVF LR at 75 cc/hr Generalized Weakness - Multi-factorial: Anemia, CKD, Hypogmagnesemia, Osteoporosis, Diffuse OA and Medications Side effects - Continue PT/OT - Vit D level-normal - Thyroid Panel-Elevated TSH 4.223 and normal FT4 0.90 - Folic Acid-normal - B12 level-considerably elevated at 1255--> 1203 Severe Memory Impairment - Questionable Early Dementia - Hold off starting her on Aricept/Namenda - Would like for her to be completely off Clonidine Anemia of chronic disease -acute on chronic -Hgb 8.4-->8.2 today; admit 9.3 -decline likely related to volemic status with IV fluids -No symptoms, monitor --> consider transfusion if indicated -Hemoccult test Resolved: S/p Hypomagnesemia - Mg 1.6 --> 2.2 - Likely 2/2 inadequate intake - Replete and monitor Transient Confusion/Delirium - 2/2 Drug Encephalopathy (Clonidine) - No obvious neurological deficits - CT scan/CXR: No acute abnormality - UA and Troponin x 2 both negative - She is baseline but disorientated x 3: Time: July, Place: Does not know where she is at, Person: Do not know, even with a clue provided - [employer] for cognitive eval: Suggestive of Early Dementia - MMSE Score 14: Severe Cognitive Impairment - Vit D level normal Chronic: Impaired Vision HTN GERD 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 LOS > 96hrs pending placement & HTN mgt.
[2017-09-30] MEDS ORDERED: Acetaminophen 325 MG Tab PO ONE ×2 (18:03→20:15)
[2017-09-30] MEDS ORDERED: Furosemide 40 MG/4 ML VIAL IV ONE ×2 (18:03→20:15)
[2017-09-30] MEDS ORDERED: diphenhydrAMINE 50 MG/ML SDV IV ONE ×2 (18:03→20:15)
[2017-09-30] MEDS ORDERED: Sodium Chloride 0.9% 250 ML IV SCH (20:45)
[2017-09-30] MEDS: Doxazosin 4 MG Tab PO SCH (21:23)
[2017-09-30] MEDS: Multivitamins,Therapeutic Tab PO SCH (21:23)
[2017-10-01] MEDS: Pantoprazole 40 MG Tab.CR PO SCH (06:34)
[2017-10-01] MEDS: Cholecalciferol (Vitamin D3) 1,000 Unit Tab PO SCH (09:08)
[2017-10-01] MEDS: Acyclovir 200 MG Cap PO SCH ×2 (09:08→21:04)
[2017-10-01] MEDS: Thiamine 100 MG Tab PO SCH (09:08)
[2017-10-01] MEDS: predniSONE 10 MG Tab PO SCH (09:08)
[2017-10-01] MEDS: Ferrous Sulfate 325 MG Tab PO SCH (09:08)
[2017-10-01] MEDS: Sodium Bicarbonate 650 MG Tab PO SCH ×2 (09:08→21:03)
[2017-10-01] MEDS: cloNIDine 0.1 MG Tab PO SCH (09:09)
[2017-10-01] MEDS ORDERED: Magnesium Sulfate/Water 2 GM in Premix Bag 1 BAG IV ONE (09:37)
[2017-10-01] MEDS: Minoxidil 2.5 MG Tab PO SCH ×2 (12:09→21:04)
--- NOTE | 2017-10-01 13:05 | PCM.PN ---
- General Info Date of Service: 10/01/17 Functional Status: Reports: Tolerating Diet, Ambulating, Urinating - Review of Systems General: Reports: No Symptoms HEENT: Reports: No Symptoms Pulmonary: Reports: No Symptoms Cardiovascular: Reports: No Symptoms Gastrointestinal: Reports: No Symptoms Genitourinary: Reports: No Symptoms Musculoskeletal: Reports: No Symptoms Skin: Reports: No Symptoms Neurological: Reports: No Symptoms Psychiatric: Reports: No Symptoms - Patient Data Vitals - Most Recent: Last Vital Signs Temp 36.7 C 10/01/17 09:07 Pulse 71 10/01/17 09:07 Resp 16 10/01/17 09:07 BP 146/55 H 10/01/17 12:09 Pulse Ox 96 10/01/17 09:07 Weight - Most Recent: 53.887 kg I&O - Last 24 Hours: Intake & Output 09/30/17 10/01/17 10/01/17 22:59 06:59 14:59 Intake Total 1890 700 Balance 1890 700 Lab Results Last 24 Hours: Laboratory Results - last 24 hr 09/30/17 09/30/17 10/01/17 Range/Units 13:45 13:45 05:45 WBC 5.01 (3.98-10.04) K/mm3 RBC 2.96 L (3.98-5.22) M/mm3 Hgb 9.8 L (11.2-15.7) gm/L Hct 29.6 L (34.1-44.9) % MCV 100.0 H (79.4-94.8) fl MCH 33.1 H (25.6-32.2) pg MCHC 33.1 (32.2-35.5) g/dl RDW Std Deviation 60.4 H (36.4-46.3) fL Plt Count 117 L (182-369) K/mm3 MPV 10.3 (9.4-12.3) fl Neut % (Auto) 72.0 H (34.0-71.1) % Lymph % (Auto) 17.4 L (19.3-51.7) % [place] % (Auto) 8.8 (4.7-12.5) % Eos % (Auto) 0.4 L (0.7-5.8) Baso % (Auto) 0.2 (0.1-1.2) % Neut # (Auto) 3.61 (1.56-6.13) K/mm3 Lymph # (Auto) 0.87 L (1.18-3.74) K/mm3 [place] # (Auto) 0.44 H (0.24-0.36) K/mm3 Eos # (Auto) 0.02 L (0.04-0.36) K/mm3 Baso # (Auto) 0.01 (0.01-0.08) K/mm3 Sodium (136-145) mEq/L Potassium 4.9 (3.5-5.1) mEq/L Chloride (98-107) mEq/L Carbon Dioxide (21-32) mEq/L Anion Gap (5-15) BUN (7-18) mg/dL Creatinine (0.55-1.02) mg/dL Est Cr Clr Drug Dosing mL/min Estimated GFR (MDRD) (>60) mL/min BUN/Creatinine Ratio (14-18) Glucose (83-115) mg/dL Calcium (8.5-10.1) mg/dL Magnesium (1.8-2.4) mg/dl C-Reactive Protein (<1.0) mg/dL Blood Type A POSITIVE Gel Antibody Screen Negative Crossmatch See Detail 10/01/17 Range/Units 05:45 WBC (3.98-10.04) K/mm3 RBC (3.98-5.22) M/mm3 Hgb (11.2-15.7) gm/L Hct (34.1-44.9) % MCV (79.4-94.8) fl MCH (25.6-32.2) pg MCHC (32.2-35.5) g/dl RDW Std Deviation (36.4-46.3) fL Plt Count (182-369) K/mm3 MPV (9.4-12.3) fl Neut % (Auto) (34.0-71.1) % Lymph % (Auto) (19.3-51.7) % [place] % (Auto) (4.7-12.5) % Eos % (Auto) (0.7-5.8) Baso % (Auto) (0.1-1.2) % Neut # (Auto) (1.56-6.13) K/mm3 Lymph # (Auto) (1.18-3.74) K/mm3 [place] # (Auto) (0.24-0.36) K/mm3 Eos # (Auto) (0.04-0.36) K/mm3 Baso # (Auto) (0.01-0.08) K/mm3 Sodium 139 (136-145) mEq/L Potassium 4.7 (3.5-5.1) mEq/L Chloride 107 (98-107) mEq/L Carbon Dioxide 25 (21-32) mEq/L Anion Gap 11.7 (5-15) BUN 94 H (7-18) mg/dL Creatinine 3.3 H (0.55-1.02) mg/dL Est Cr Clr Drug Dosing 8.79 mL/min Estimated GFR (MDRD) 13 (>60) mL/min BUN/Creatinine Ratio 28.5 H (14-18) Glucose 89 (83-115) mg/dL Calcium 9.2 (8.5-10.1) mg/dL Magnesium 1.8 (1.8-2.4) mg/dl C-Reactive Protein < 0.2 (<1.0) mg/dL Blood Type Gel Antibody Screen Crossmatch Med Orders - Current: Current Medications Acetaminophen (Tylenol) 650 mg PO Q4H PRN PRN Reason: Pain (Mild 1-3)/fever Hydrocodone Bitart/Acetaminophen ([place] 325-5 Mg) 1 tab PO Q4H PRN PRN Reason: Pain (moderate 4-6) Acyclovir (Zovirax) 400 mg PO BID [facility] Last Admin: 10/01/17 09:08 Dose: 400 mg Albuterol/Ipratropium (Duoneb 3.0-0.5 Mg/3 Ml) 3 ml NEB Q4H PRN PRN Reason: Shortness Of Breath/wheezing Bisacodyl (Dulcolax) 5 mg PO DAILY PRN PRN Reason: Constipation Last Admin: 09/25/17 06:11 Dose: 5 mg Cholecalciferol (Vitamin D3) 2,000 units PO DAILY [facility] Last Admin: 10/01/17 09:08 Dose: 2,000 units Clonidine HCl (Catapres) 0.1 mg PO DAILY@1800 PRN PRN Reason: Hypertension Docusate Sodium (Colace) 100 mg PO BID PRN PRN Reason: Constipation Doxazosin Mesylate (Cardura) 16 mg PO BEDTIME [facility] Last Admin: 09/30/17 21:23 Dose: 16 mg Ferrous Sulfate (Ferrous Sulfate) 325 mg PO DAILY@0800 [facility] Last Admin: 10/01/17 09:08 Dose: 325 mg Promethazine HCl 6.25 mg/ (Sodium Chloride) 50.25 mls @ 100 mls/hr IV Q6H PRN PRN Reason: Nausea/Vomiting Lactated Ringer's (Ringers, Lactated) 1,000 mls @ 75 mls/hr IV ASDIRECTED [facility] Lorazepam (Ativan) 2 mg IVPUSH Q4H PRN PRN Reason: Seizures Lorazepam (Ativan) 0.25 mg IV Q6H PRN PRN Reason: Anxiety Metoprolol Tartrate (Lopressor) 5 mg IVPUSH Q4H PRN PRN Reason: Tachycardia Minoxidil (Loniten) 2.5 mg PO BID@1200,2100 [facility] Last Admin: 10/01/17 12:09 Dose: 2.5 mg Multivitamins (Thera) 1 each PO BEDTIME [facility] Last Admin: 09/30/17 21:23 Dose: 1 each Ondansetron HCl (Zofran) 4 mg IV Q6H PRN PRN Reason: Nausea/Vomiting Pantoprazole Sodium (Protonix) 40 mg PO DAILY@0700 [facility] Last Admin: 10/01/17 06:34 Dose: 40 mg Cyclophosphamide 25 (Mg) 0 each PO Q2D@0900 [facility] Last Admin: 09/30/17 08:18 Dose: 1 each Dapsone 25 Mg 0 each PO DAILY@1400 [facility] Last Admin: 09/30/17 13:34 Dose: 1 each Polyethylene Glycol (Miralax) 17 gm PO DAILY PRN PRN Reason: Constipation Prednisone (Prednisone) 30 mg PO DAILY@0800 [facility] Last Admin: 10/01/17 09:08 Dose: 30 mg Senna/Docusate Sodium (Senna Plus) 1 tab PO BID PRN PRN Reason: Constipation Last Admin: 09/24/17 17:04 Dose: 1 tab Sodium Bicarbonate (Sodium Bicarbonate) 650 mg PO BID [facility] Last Admin: 10/01/17 09:08 Dose: 650 mg Thiamine HCl (Vitamin B-1) 100 mg PO DAILY [facility] Last Admin: 10/01/17 09:08 Dose: 100 mg Discontinued Medications Acetaminophen (Tylenol) 650 mg PO NOW ONE Stop: 09/30/17 18:04 Last Admin: 09/30/17 20:27 Dose: Not Given Acetaminophen (Tylenol) 650 mg PO NOW ONE Stop: 09/30/17 20:16 Last Admin: 09/30/17 20:29 Dose: 650 mg Alteplase, Recombinant (Activase) Confirm Administered Dose 100 mg .ROUTE .STK- MED ONE Stop: 09/20/17 10:10 Last Admin: 09/21/17 20:29 Dose: Not Given Clonidine HCl (Catapres) 0.1 mg PO Q12H [facility] Last Admin: 09/21/17 19:34 Dose: Not Given Clonidine HCl (Catapres) 0.2 mg PO Q12H [facility] Last Admin: 09/21/17 16:47 Dose: 0.1 mg Clonidine HCl (Catapres) 0.1 mg PO BEDTIME [facility] Stop: 09/28/17 22:00 Last Admin: 09/24/17 20:38 Dose: Not Given Clonidine HCl (Catapres) 0.2 mg PO DAILY [facility] Last Admin: 09/24/17 09:16 Dose: 0.2 mg Clonidine HCl (Catapres) 0.1 mg PO DAILY [facility] Stop: 10/01/17 10:00 Last Admin: 10/01/17 09:09 Dose: 0.1 mg Clonidine HCl (Catapres) 0.1 mg PO DAILY@1800 [facility] Last Admin: 09/25/17 18:25 Dose: Not Given Diphenhydramine HCl (Benadryl) 25 mg IV ONETIME ONE Stop: 09/30/17 18:04 Last Admin: 09/30/17 20:25 Dose: Not Given Diphenhydramine HCl (Benadryl) 25 mg IV ONETIME ONE Stop: 09/30/17 20:16 Last Admin: 09/30/17 20:29 Dose: 25 mg Ferrous Sulfate (Ferrous Sulfate) 325 mg PO WITHBREAKFAST [facility] Last Admin: 09/23/17 06:00 Dose: 325 mg Furosemide (Lasix) 40 mg PO BID [facility] Last Admin: 09/20/17 21:30 Dose: 40 mg Furosemide (Lasix) 40 mg PO BID [facility] Last Admin: 09/23/17 09:32 Dose: 40 mg Furosemide (Lasix) 40 mg PO BIDDIURETIC [facility] Last Admin: 09/26/17 06:14 Dose: 40 mg Furosemide (Lasix) 40 mg IV NOW ONE Stop: 09/30/17 18:04 Last Admin: 09/30/17 20:26 Dose: Not Given Furosemide (Lasix) 40 mg IV NOW ONE Stop: 09/30/17 20:16 Last Admin: 10/01/17 01:38 Dose: 40 mg Hydralazine HCl (Apresoline) 10 mg IVPUSH Q4H PRN PRN Reason: Hypertension Last Admin: 09/21/17 04:20 Dose: 10 mg Hydralazine HCl (Apresoline) 5 mg IVPUSH Q6H PRN PRN Reason: Hypertension Hydralazine HCl (Apresoline) 5 mg IVPUSH Q6H PRN PRN Reason: Hypertension Last Admin: 09/22/17 05:17 Dose: 5 mg Hydralazine HCl (Apresoline) 5 mg IVPUSH Q6H PRN PRN Reason: Hypertension Last Admin: 09/27/17 06:46 Dose: 5 mg Magnesium Sulfate 2 gm/ Premix 50 mls @ 50 mls/hr IV ONETIME STA Stop: 09/20/17 12:40 Last Admin: 09/20/17 11:47 Dose: 50 mls/hr Sodium Chloride (Normal Saline) 250 mls @ 999 mls/hr IV ONETIME ONE Stop: 09/24/17 13:45 Last Admin: 09/24/17 13:35 Dose: 999 mls/hr Sodium Chloride (Normal Saline) Confirm Administered Dose 250 mls @ as directed .ROUTE .K-MED ONE Stop: 09/24/17 13:20 Last Admin: 09/24/17 14:50 Dose: Not Given Lactated Ringer's (Ringers, Lactated) 1,000 mls @ 75 mls/hr IV ASDIRECTED [facility] Last Admin: 09/30/17 12:16 Dose: 75 mls/hr Sodium Chloride (Normal Saline) 250 mls @ 100 mls/hr IV ASDIRECTED [facility] Stop: 09/30/17 23:59 Magnesium Sulfate 2 gm/ Premix 50 mls @ 25 mls/hr IV ONETIME ONE Stop: 10/01/17 11:36 Last Admin: 10/01/17 10:10 Dose: 25 mls/hr Labetalol HCl (Normodyne) 5 mg IVPUSH Q6H PRN; Protocol PRN Reason: Hypertension Magnesium Sulfate (Pharmacy To Dose - Magnesium Replacement) 0 dose .XX ASDIRECTED PRN PRN Reason: RX TO WATCH MAG LEVELS Minoxidil (Loniten) 2.5 mg PO BID [facility] Last Admin: 09/23/17 09:36 Dose: 2.5 mg Minoxidil (Loniten) 2.5 mg PO NOW STA Stop: 09/22/17 09:13 Last Admin: 09/22/17 11:01 Dose: Not Given Minoxidil (Loniten) 2.5 mg PO BID [facility] Last Admin: 09/24/17 09:16 Dose: 2.5 mg Minoxidil (Loniten) 2.5 mg PO BID [facility] Last Admin: 09/25/17 10:39 Dose: Not Given Nifedipine (Procardia Xl) 15 mg PO BID [facility] Last Admin: 09/22/17 17:15 Dose: Not Given Non-Formulary Medication (Alendronate [Fosamax]) 70 mg PO Tu@0600 [facility] Doxazosin 8 Mg Own (Med) 0 mg PO BEDTIME [facility] Last Admin: 09/20/17 21:30 Dose: 16 mg Acyclovir 400 Mg (Own Med) 0 mg PO BID [facility] Last Admin: 09/20/17 21:30 Dose: 400 mg Non-Formulary Medication (Cranberry [Cranberry]) 1 cap PO DAILY [facility] Sodium Bicarbonate 650 Mg Tab Own Med 0 each PO BID [facility] Last Admin: 09/21/17 09:39 Dose: 1 each Prednisone 20 Mg Tab (Own Med) 0 each PO WITHBREAKFAST [facility] Last Admin: 09/21/17 09:41 Dose: 1.5 each Doxazosin 8 Mg Own (Med) 0 each PO BEDTIME [facility] Acyclovir 400 Mg (Own Med) 0 each PO BID [facility] Last Admin: 09/21/17 09:37 Dose: Not Given Furosemide 40 Mg Tab (Own Meds) 0 each PO BID [facility] Last Admin: 09/21/17 09:39 Dose: Not Given Potassium Chloride (Pharmacy To Dose - Potassium Replacement) 0 dose .XX ASDIRECTED PRN PRN Reason: RX TO WATCH K LEVELS Potassium Chloride (Klor-Con M20) 40 meq PO Q4H [facility] Stop: 09/20/17 22:01 Last Admin: 09/20/17 21:33 Dose: 40 meq Prednisone (Prednisone) 30 mg PO WITHBREAKFAST [facility] Last Admin: 09/21/17 19:33 Dose: Not Given Prednisone (Prednisone) 30 mg PO WITHBREAKFAST [facility] Last Admin: 09/23/17 06:00 Dose: 30 mg Sodium Bicarbonate (Sodium Bicarbonate) 650 mg PO BID [facility] Last Admin: 09/20/17 21:30 Dose: 650 mg Thiamine HCl (Vitamin B-1) 200 mg IV DAILY [facility] Last Admin: 09/29/17 09:23 Dose: Not Given - Exam Quality Assessment: Supplemental Oxygen, DVT Prophylaxis General: Alert, Oriented, Cooperative, No Acute Distress HEENT: Pupils Equal, Pupils Reactive, EOMI Neck: Trachea Midline, No JVD Lungs: Normal Respiratory Effort Cardiovascular: Regular Rate, Regular Rhythm GI/Abdominal Exam: Normal Bowel Sounds, Soft, Non-Tender, No Organomegaly, No Distention (Female) Exam: Deferred Back Exam: Normal Inspection Extremities: Normal Inspection, Normal Range of Motion, Non-Tender Skin: Warm Neurological: No New Focal Deficit Psy/Mental Status: Alert, Normal Affect, Normal Mood - Problem List Review Problem List Initiated/Reviewed/Updated: Yes - My Orders Last 24 Hours: My Active Orders 10/01/17 15:00 Lactated Ringers [Ringers, Lactated] 1,000 ml IV ASDIRECTED - Plan Plan:: Assessment/Plan: 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 Low this AM and informed him we (the hospital) do not have any other good medications to offer her here if hydralazine is contraindicated -Continue Minoxidil 2.5 mg po BID while we taper off clonidine-->change Catapres pm to prn, maintain remaining regimen; hold Lasix as above. -Dr. Low wants her pressure to be in the 150s-160s systolic - Continue PRN low dose hydralazine 5 mg IVP Q6H for BP > 180/90 mmHg - BP range today (09/28) from 133/57 to 160/81 Acute renal failure on CKD - Cr 4.2--> 3.8-->3.3 - Hold nephrotoxins, hydrate, avoid dehydration - Continue IVF LR at 75 cc/hr resume at 1500 hour Generalized Weakness - Multi-factorial: Anemia, CKD, Hypogmagnesemia, Osteoporosis, Diffuse OA and Medications Side effects - Continue PT/OT - Vit D level-normal - Thyroid Panel-Elevated TSH 4.223 and normal FT4 0.90 - Folic Acid-normal - B12 level-considerably elevated at 1255--> 1203 Severe Memory Impairment - Questionable Early Dementia - Hold off starting her on Aricept/Namenda - Would like for her to be completely off Clonidine Anemia of chronic disease -acute on chronic -Hgb 8.4-->8.2 today; admit 9.3 -decline likely related to volemic status with IV fluids -No symptoms, monitor --> consider transfusion if indicated -Hemoccult test Resolved: S/p Hypomagnesemia - Mg 1.6 --> 2.2 - Likely 2/2 inadequate intake - Replete and monitor Transient Confusion/Delirium - 2/2 Drug Encephalopathy (Clonidine) - No obvious neurological deficits - CT scan/CXR: No acute abnormality - UA and Troponin x 2 both negative - She is baseline but disorientated x 3: Time: July, Place: Does not know where she is at, Person: Do not know, even with a clue provided - [employer] for cognitive eval: Suggestive of Early Dementia - MMSE Score 14: Severe Cognitive Impairment - Vit D level normal Chronic: Impaired Vision HTN GERD 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 LOS > 96hrs pending placement & HTN mgt.
[2017-10-01] MEDS: Lactated Ringers 1,000 ML IV SCH (14:42)
[2017-10-01] MEDS: Doxazosin 4 MG Tab PO SCH (21:03)
[2017-10-01] MEDS: Multivitamins,Therapeutic Tab PO SCH (21:04)
[2017-10-02] MEDS: Lactated Ringers 1,000 ML IV SCH ×2 (05:19→21:02)
[2017-10-02] MEDS: Pantoprazole 40 MG Tab.CR PO SCH (06:03)
[2017-10-02] MEDS: Sodium Bicarbonate 650 MG Tab PO SCH ×2 (08:18→21:05)
[2017-10-02] MEDS: Thiamine 100 MG Tab PO SCH (08:19)
[2017-10-02] MEDS: Cholecalciferol (Vitamin D3) 1,000 Unit Tab PO SCH (08:19)
[2017-10-02] MEDS: Acyclovir 200 MG Cap PO SCH ×2 (08:19→21:04)
[2017-10-02] MEDS: Ferrous Sulfate 325 MG Tab PO SCH (08:19)
[2017-10-02] MEDS: predniSONE 10 MG Tab PO SCH (08:19)
[2017-10-02] MEDS: CYCLOPHOSPHAMIDE 25 MG PO SCH (08:21)
[2017-10-02] MEDS: Minoxidil 2.5 MG Tab PO SCH ×3 (13:08→21:04)
--- NOTE | 2017-10-02 13:51 | PCM.PN ---
- General Info Date of Service: 10/02/17 Subjective Update: Patient has completed taper of clonidine; labs should be obtained q 10 days per cocoa press operator as discussed with family and staff. Additional fluid will be provided prior to departure. DC planned tomorrow, 10/03/17. Functional Status: Reports: Pain Controlled, Tolerating Diet, Ambulating, Urinating - Review of Systems General: Reports: No Symptoms HEENT: Reports: No Symptoms Pulmonary: Reports: No Symptoms Cardiovascular: Reports: No Symptoms Gastrointestinal: Reports: No Symptoms Genitourinary: Reports: No Symptoms Musculoskeletal: Reports: No Symptoms Skin: Reports: No Symptoms Neurological: Reports: Confusion (baseline) Psychiatric: Reports: Confusion (baseline) - Patient Data Vitals - Most Recent: Last Vital Signs Temp 36.9 C 10/02/17 08:12 Pulse 75 10/02/17 08:12 Resp 14 10/02/17 08:12 BP 136/61 10/02/17 13:11 Pulse Ox 96 10/02/17 08:12 Weight - Most Recent: 53.796 kg I&O - Last 24 Hours: Intake & Output 10/01/17 10/02/17 10/02/17 22:59 06:59 14:59 Intake Total 1540 876 Balance 1540 876 Lab Results Last 24 Hours: Laboratory Results - last 24 hr 10/02/17 10/02/17 Range/Units 05:20 05:20 WBC 5.32 (3.98-10.04) K/mm3 RBC 3.05 L (3.98-5.22) M/mm3 Hgb 10.1 L (11.2-15.7) gm/L Hct 30.4 L (34.1-44.9) % MCV 99.7 H (79.4-94.8) fl MCH 33.1 H (25.6-32.2) pg MCHC 33.2 (32.2-35.5) g/dl RDW Std Deviation 60.6 H (36.4-46.3) fL Plt Count 130 L (182-369) K/mm3 MPV 10.5 (9.4-12.3) fl Neut % (Auto) 74.4 H (34.0-71.1) % Lymph % (Auto) 15.8 L (19.3-51.7) % [place] % (Auto) 8.5 (4.7-12.5) % Eos % (Auto) 0.2 L (0.7-5.8) Baso % (Auto) 0.2 (0.1-1.2) % Neut # (Auto) 3.96 (1.56-6.13) K/mm3 Lymph # (Auto) 0.84 L (1.18-3.74) K/mm3 [place] # (Auto) 0.45 H (0.24-0.36) K/mm3 Eos # (Auto) 0.01 L (0.04-0.36) K/mm3 Baso # (Auto) 0.01 (0.01-0.08) K/mm3 Sodium 139 (136-145) mEq/L Potassium 4.9 (3.5-5.1) mEq/L Chloride 107 (98-107) mEq/L Carbon Dioxide 27 (21-32) mEq/L Anion Gap 9.9 (5-15) BUN 92 H (7-18) mg/dL Creatinine 3.3 H (0.55-1.02) mg/dL Est Cr Clr Drug Dosing 8.79 mL/min Estimated GFR (MDRD) 13 (>60) mL/min BUN/Creatinine Ratio 27.9 H (14-18) Glucose 86 (83-115) mg/dL Calcium 8.9 (8.5-10.1) mg/dL Magnesium 2.1 (1.8-2.4) mg/dl C-Reactive Protein < 0.2 (<1.0) mg/dL [facility] Results Last 24 Hours: Microbiology 09/30/17 10:01 Stool Occult Blood (ABRAHAM) - Final Stool / Feces Med Orders - Current: Current Medications Acetaminophen (Tylenol) 650 mg PO Q4H PRN PRN Reason: Pain (Mild 1-3)/fever Hydrocodone Bitart/Acetaminophen ([place] 325-5 Mg) 1 tab PO Q4H PRN PRN Reason: Pain (moderate 4-6) Acyclovir (Zovirax) 400 mg PO BID [facility] Last Admin: 10/02/17 08:19 Dose: 400 mg Albuterol/Ipratropium (Duoneb 3.0-0.5 Mg/3 Ml) 3 ml NEB Q4H PRN PRN Reason: Shortness Of Breath/wheezing Bisacodyl (Dulcolax) 5 mg PO DAILY PRN PRN Reason: Constipation Last Admin: 09/25/17 06:11 Dose: 5 mg Cholecalciferol (Vitamin D3) 2,000 units PO DAILY [facility] Last Admin: 10/02/17 08:19 Dose: 2,000 units Clonidine HCl (Catapres) 0.1 mg PO DAILY@1800 PRN PRN Reason: Hypertension Docusate Sodium (Colace) 100 mg PO BID PRN PRN Reason: Constipation Doxazosin Mesylate (Cardura) 16 mg PO BEDTIME [facility] Last Admin: 10/01/17 21:03 Dose: 16 mg Ferrous Sulfate (Ferrous Sulfate) 325 mg PO DAILY@0800 [facility] Last Admin: 10/02/17 08:19 Dose: 325 mg Promethazine HCl 6.25 mg/ (Sodium Chloride) 50.25 mls @ 100 mls/hr IV Q6H PRN PRN Reason: Nausea/Vomiting Lactated Ringer's (Ringers, Lactated) 1,000 mls @ 75 mls/hr IV ASDIRECTED [facility] Last Admin: 10/02/17 05:19 Dose: 75 mls/hr Lorazepam (Ativan) 2 mg IVPUSH Q4H PRN PRN Reason: Seizures Lorazepam (Ativan) 0.25 mg IV Q6H PRN PRN Reason: Anxiety Metoprolol Tartrate (Lopressor) 5 mg IVPUSH Q4H PRN PRN Reason: Tachycardia Minoxidil (Loniten) 2.5 mg PO BID@1200,2100 [facility] Last Admin: 10/02/17 13:11 Dose: Not Given Multivitamins (Thera) 1 each PO BEDTIME [facility] Last Admin: 10/01/17 21:04 Dose: 1 each Ondansetron HCl (Zofran) 4 mg IV Q6H PRN PRN Reason: Nausea/Vomiting Pantoprazole Sodium (Protonix) 40 mg PO DAILY@0700 [facility] Last Admin: 10/02/17 06:03 Dose: 40 mg Cyclophosphamide 25 (Mg) 0 each PO Q2D@0900 [facility] Last Admin: 10/02/17 08:21 Dose: 1 each Dapsone 25 Mg 0 each PO DAILY@1400 [facility] Last Admin: 10/01/17 14:36 Dose: 1 each Polyethylene Glycol (Miralax) 17 gm PO DAILY PRN PRN Reason: Constipation Prednisone (Prednisone) 30 mg PO DAILY@0800 [facility] Last Admin: 10/02/17 08:19 Dose: 30 mg Senna/Docusate Sodium (Senna Plus) 1 tab PO BID PRN PRN Reason: Constipation Last Admin: 09/24/17 17:04 Dose: 1 tab Sodium Bicarbonate (Sodium Bicarbonate) 650 mg PO BID [facility] Last Admin: 10/02/17 08:18 Dose: 650 mg Thiamine HCl (Vitamin B-1) 100 mg PO DAILY [facility] Last Admin: 10/02/17 08:19 Dose: 100 mg Discontinued Medications Acetaminophen (Tylenol) 650 mg PO NOW ONE Stop: 09/30/17 18:04 Last Admin: 09/30/17 20:27 Dose: Not Given Acetaminophen (Tylenol) 650 mg PO NOW ONE Stop: 09/30/17 20:16 Last Admin: 09/30/17 20:29 Dose: 650 mg Alteplase, Recombinant (Activase) Confirm Administered Dose [address] ONE Stop: 09/20/17 10:10 Last Admin: 09/21/17 20:29 Dose: Not Given Clonidine HCl (Catapres) 0.1 mg PO Q12H [facility] Last Admin: 09/21/17 19:34 Dose: Not Given Clonidine HCl (Catapres) 0.2 mg PO Q12H [facility] Last Admin: 09/21/17 16:47 Dose: 0.1 mg Clonidine HCl (Catapres) 0.1 mg PO BEDTIME [facility] Stop: 09/28/17 22:00 Last Admin: 09/24/17 20:38 Dose: Not Given Clonidine HCl (Catapres) 0.2 mg PO DAILY [facility] Last Admin: 09/24/17 09:16 Dose: 0.2 mg Clonidine HCl (Catapres) 0.1 mg PO DAILY [facility] Stop: 10/01/17 10:00 Last Admin: 10/01/17 09:09 Dose: 0.1 mg Clonidine HCl (Catapres) 0.1 mg PO DAILY@1800 [facility] Last Admin: 09/25/17 18:25 Dose: Not Given Diphenhydramine HCl (Benadryl) 25 mg IV ONETIME ONE Stop: 09/30/17 18:04 Last Admin: 09/30/17 20:25 Dose: Not Given Diphenhydramine HCl (Benadryl) 25 mg IV ONETIME ONE Stop: 09/30/17 20:16 Last Admin: 09/30/17 20:29 Dose: 25 mg Ferrous Sulfate (Ferrous Sulfate) 325 mg PO WITHBREAKFAST [facility] Last Admin: 09/23/17 06:00 Dose: 325 mg Furosemide (Lasix) 40 mg PO BID [facility] Last Admin: 09/20/17 21:30 Dose: 40 mg Furosemide (Lasix) 40 mg PO BID [facility] Last Admin: 09/23/17 09:32 Dose: 40 mg Furosemide (Lasix) 40 mg PO BIDDIURETIC [facility] Last Admin: 09/26/17 06:14 Dose: 40 mg Furosemide (Lasix) 40 mg IV NOW ONE Stop: 09/30/17 18:04 Last Admin: 09/30/17 20:26 Dose: Not Given Furosemide (Lasix) 40 mg IV NOW ONE Stop: 09/30/17 20:16 Last Admin: 10/01/17 01:38 Dose: 40 mg Hydralazine HCl (Apresoline) 10 mg IVPUSH Q4H PRN PRN Reason: Hypertension Last Admin: 09/21/17 04:20 Dose: 10 mg Hydralazine HCl (Apresoline) 5 mg IVPUSH Q6H PRN PRN Reason: Hypertension Hydralazine HCl (Apresoline) 5 mg IVPUSH Q6H PRN PRN Reason: Hypertension Last Admin: 09/22/17 05:17 Dose: 5 mg Hydralazine HCl (Apresoline) 5 mg IVPUSH Q6H PRN PRN Reason: Hypertension Last Admin: 09/27/17 06:46 Dose: 5 mg Magnesium Sulfate 2 gm/ Premix 50 mls @ 50 mls/hr IV ONETIME STA Stop: 09/20/17 12:40 Last Admin: 09/20/17 11:47 Dose: 50 mls/hr Sodium Chloride (Normal Saline) 250 mls @ 999 mls/hr IV ONETIME ONE Stop: 09/24/17 13:45 Last Admin: 09/24/17 13:35 Dose: 999 mls/hr Sodium Chloride (Normal Saline) Confirm Administered Dose 250 mls @ as directed .ROUTE .ST[facility]-MED ONE Stop: 09/24/17 13:20 Last Admin: 09/24/17 14:50 Dose: Not Given Lactated Ringer's (Ringers, Lactated) 1,000 mls @ 75 mls/hr IV ASDIRECTED [facility] Last Admin: 09/30/17 12:16 Dose: 75 mls/hr Sodium Chloride (Normal Saline) 250 mls @ 100 mls/hr IV ASDIRECTED [facility] Stop: 09/30/17 23:59 Magnesium Sulfate 2 gm/ Premix 50 mls @ 25 mls/hr IV ONETIME ONE Stop: 10/01/17 11:36 Last Admin: 10/01/17 10:10 Dose: 25 mls/hr Labetalol HCl (Normodyne) 5 mg IVPUSH Q6H PRN; Protocol PRN Reason: Hypertension Magnesium Sulfate (Pharmacy To Dose - Magnesium Replacement) 0 dose .XX ASDIRECTED PRN PRN Reason: RX TO WATCH MAG LEVELS Minoxidil (Loniten) 2.5 mg PO BID [facility] Last Admin: 09/23/17 09:36 Dose: 2.5 mg Minoxidil (Loniten) 2.5 mg PO NOW STA Stop: 09/22/17 09:13 Last Admin: 09/22/17 11:01 Dose: Not Given Minoxidil (Loniten) 2.5 mg PO BID [facility] Last Admin: 09/24/17 09:16 Dose: 2.5 mg Minoxidil (Loniten) 2.5 mg PO BID [facility] Last Admin: 09/25/17 10:39 Dose: Not Given Nifedipine (Procardia Xl) 15 mg PO BID [facility] Last Admin: 09/22/17 17:15 Dose: Not Given Non-Formulary Medication (Alendronate [Fosamax]) 70 mg PO Tu@0600 [facility] Doxazosin 8 Mg Own (Med) 0 mg PO BEDTIME [facility] Last Admin: 09/20/17 21:30 Dose: 16 mg Acyclovir 400 Mg (Own Med) 0 mg PO BID [facility] Last Admin: 09/20/17 21:30 Dose: 400 mg Non-Formulary Medication (Cranberry [Cranberry]) 1 cap PO DAILY [facility] Sodium Bicarbonate 650 Mg Tab Own Med 0 each PO BID [facility] Last Admin: 09/21/17 09:39 Dose: 1 each Prednisone 20 Mg Tab (Own Med) 0 each PO WITHBREAKFAST [facility] Last Admin: 09/21/17 09:41 Dose: 1.5 each Doxazosin 8 Mg Own (Med) 0 each PO BEDTIME [facility] Acyclovir 400 Mg (Own Med) 0 each PO BID [facility] Last Admin: 09/21/17 09:37 Dose: Not Given Furosemide 40 Mg Tab (Own Meds) 0 each PO BID [facility] Last Admin: 09/21/17 09:39 Dose: Not Given Potassium Chloride (Pharmacy To Dose - Potassium Replacement) 0 dose .XX ASDIRECTED PRN PRN Reason: RX TO WATCH K LEVELS Potassium Chloride (Klor-Con M20) 40 meq PO Q4H [facility] Stop: 09/20/17 22:01 Last Admin: 09/20/17 21:33 Dose: 40 meq Prednisone (Prednisone) 30 mg PO WITHBREAKFAST [facility] Last Admin: 09/21/17 19:33 Dose: Not Given Prednisone (Prednisone) 30 mg PO WITHBREAKFAST [facility] Last Admin: 09/23/17 06:00 Dose: 30 mg Sodium Bicarbonate (Sodium Bicarbonate) 650 mg PO BID [facility] Last Admin: 09/20/17 21:30 Dose: 650 mg Thiamine HCl (Vitamin B-1) 200 mg IV DAILY [facility] Last Admin: 09/29/17 09:23 Dose: Not Given - Exam Quality Assessment: DVT Prophylaxis General: Alert, Oriented, Cooperative, No Acute Distress HEENT: Pupils Equal, Pupils Reactive, EOMI Neck: Trachea Midline, No JVD Lungs: Clear to Auscultation, Normal Respiratory Effort Cardiovascular: Regular Rate, Regular Rhythm GI/Abdominal Exam: Normal Bowel Sounds, Soft, Non-Tender, No Organomegaly, No Distention (Female) Exam: Deferred Back Exam: Normal Inspection Extremities: Normal Inspection, Non-Tender, Normal Capillary Refill Skin: Warm Neurological: No New Focal Deficit, Normal Gait, Normal Speech Psy/Mental Status: Alert - Problem List Review Problem List Initiated/Reviewed/Updated: Yes - My Orders Last 24 Hours: My Active Orders 10/01/17 15:00 Lactated Ringers [Ringers, Lactated] 1,000 ml IV ASDIRECTED - Plan Plan:: Assessment/Plan: 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 Low this AM and informed him we (the hospital) do not have any other good medications to offer her here if hydralazine is contraindicated -Continue Minoxidil 2.5 mg po BID; has been tapered off clonidine--> change Catapres pm to prn, maintain remaining regimen; hold Lasix as above. -Dr. Low wants her pressure to be in the 150s-160s systolic; have reached goal - Continue PRN low dose hydralazine 5 mg IVP Q6H for BP > 180/90 mmHg - BP range today (09/28) from 133/57 to 160/81 Acute renal failure on CKD - Cr 4.2--> 3.8-->3.3 - Hold nephrotoxins, hydrate, avoid dehydration - Continue IVF LR at 75 cc/hr, will increase for 8 hours to 100 cc/hr Generalized Weakness-->improved - Multi-factorial: Anemia, CKD, Hypogmagnesemia, Osteoporosis, Diffuse OA and Medications Side effects - Continue PT/OT - Vit D level-normal - Thyroid Panel-Elevated TSH 4.223 and normal FT4 0.90 - Folic Acid-normal - B12 level-considerably elevated at 1255--> 1203 Severe Memory Impairment - Query Dementia, will need assessment - Hold off starting her on Aricept/Namenda - Would like for her to be completely off Clonidine Anemia of chronic disease -acute on chronic -Hgb 8.4-->8.2 today; admit 9.3; corrected, stable -decline likely related to volemic status with IV fluids -No symptoms, monitor --> consider transfusion if indicated -Hemoccult test Resolved: S/p Hypomagnesemia - Mg 1.6 --> 2.2 - Likely 2/2 inadequate intake - Replete and monitor Transient Confusion/Delirium - 2/2 Drug Encephalopathy (Clonidine) - No obvious neurological deficits - CT scan/CXR: No acute abnormality - UA and Troponin x 2 both negative - She is baseline but disorientated x 3: Time: July, Place: Does not know where she is at, Person: Do not know, even with a clue provided - HYDROTECHNICAL SPECIALIST for cognitive eval: Suggestive of Early Dementia - MMSE Score 14: Severe Cognitive Impairment - Vit D level normal Chronic: Impaired Vision HTN GERD 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 Low, needs BMP q 10 days sent to his office; home meds resumed per RX. LOS > 96hrs pending placement & HTN mgt.
[2017-10-02] MEDS: Doxazosin 4 MG Tab PO SCH (21:02)
[2017-10-02] MEDS: Multivitamins,Therapeutic Tab PO SCH (21:04)
[2017-10-03] MEDS: Pantoprazole 40 MG Tab.CR PO SCH (06:20)
--- NOTE | 2017-10-03 06:32 | PCM.DCSUM1 ---
Discharge Summary - Hospital Course HPI Initial Comments: This is an 87 yo elderly white female with past medical hx/o Impaired Vision, HTN, GERD, CKD Stage 4-5, Spastic Bladder, OA, Osteoporosis, Chronic Headaches, Anemia of Chronic Disease, and Autoimmune Disease who comes in with complaints of lethargy and disorientation that start last night. Her chief complaints are associated with some trouble with gripping her walker using her left hand but no obvious neurological deficits noted. She denies any other issues. Her initial workup in the emergency department shows a CBC remarkable for RBC of 2.91, hemoglobin of 9.3, hematocrit of 29.2, MCV of 100.3, MCHC of 31.8, RDW of 64.1, platelet count of 127, and neutrophils of 78%. His chemistry is remarkable for BUN of 71, creatinine of 2.8, glucose of 129, magnesium 1.6, alkaline phosphatase of 45, total protein of 6, and albumin of 3. Her UA is negative for UTI. Her Chest x-ray and head CT scan both show no acute abnormal findings. Patient is being admitted for evaluation of transient confusion. She is full code. - Discharge Data Discharge Date: 10/03/17 (Admit date:09/20/17) Discharge Disposition: DC/Tfer to SNF 03 Condition: Good - Discharge Diagnosis/Problem(s) (1) Hypomagnesemia SNOMED Code(s): 344341925 ICD Code: E83.42 - HYPOMAGNESEMIA Status: Acute Priority: Medium Current Visit: Yes (2) Lethargy SNOMED Code(s): 488705707 ICD Code: R53.83 - OTHER FATIGUE Status: Acute Priority: High Current Visit: Yes (3) Anemia SNOMED Code(s): 839746183 ICD Code: D64.9 - ANEMIA, UNSPECIFIED Status: Chronic Priority: Medium Current Visit: Yes Qualifiers: Anemia type: due to chronic kidney disease Chronic kidney disease stage: unspecified stage Qualified Code(s): N18.9 - Chronic kidney disease, unspecified; D63.1 - Anemia in chronic kidney disease (4) Kidney disease SNOMED Code(s): 09725301 ICD Code: N28.9 - DISORDER OF KIDNEY AND URETER, UNSPECIFIED Status: Chronic Priority: High Current Visit: Yes (5) Hypertension SNOMED Code(s): 56793875 ICD Code: I10 - ESSENTIAL (PRIMARY) HYPERTENSION Status: Chronic Priority : Low Current Visit: No Qualifiers: Hypertension type: unspecified Qualified Code(s): I10 - Essential (primary ) hypertension - Patient Summary/Data Consults: Consultations 09/20/17 16:21 Consult to Case Management [CONS] Routine Consult to Power Checker [CONS] Routine Consult to Spiritual Care [CONS] Routine OT Evaluation and Treatment [CONS] Routine PT Evaluation and Treatment [CONS] Routine 09/21/17 07:27 Consult to Speech Language Pathology [[employer] Evaluation and Treatment] [CONS] Routine Recommended Follow-up Testing/Procedures: Follow-up with primary care provider within 7-10 days of discharge. Outreach Nurse, Dr Low, requests BMP q 10 days sent to his office. 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 Low this AM and informed him we (the hospital) do not have any other good medications to offer her here if hydralazine is contraindicated -Continue Minoxidil 2.5 mg po BID; has been tapered off clonidine--> change Catapres pm to prn, maintain remaining regimen; hold Lasix as above. -Dr. Low wants her pressure to be in the 150s-160s systolic; have reached goal - Continue PRN low dose hydralazine 5 mg IVP Q6H for BP > 180/90 mmHg - BP range today (09/28) from 133/57 to 160/81 Acute renal failure on CKD - Cr 4.2--> 3.8-->3.3-->3.2 - Hold nephrotoxins, hydrate, avoid dehydration - Continue IVF LR at 75 cc/hr, will increase for 8 hours to 100 cc/hr --> discontinue Generalized Weakness-->improved - Multi-factorial: Anemia, CKD, Hypogmagnesemia, Osteoporosis, Diffuse OA and Medications Side effects - Continue PT/OT - Vit D level-normal - Thyroid Panel-Elevated TSH 4.223 and normal FT4 0.90 - Folic Acid-normal - B12 level-considerably elevated at 1255--> 1203 Severe Memory Impairment - Query Dementia, will need assessment - Hold off starting her on Aricept/Namenda-->defer to PCP - Would like for her to be completely off Clonidine Anemia of chronic disease -acute on chronic -Hgb 8.4-->8.2 today; admit 9.3; corrected, stable -decline likely related to volemic status with IV fluids -No symptoms, monitor --> consider transfusion if indicated -Hemoccult test --> positive but on iron supplementation daily Resolved: S/p Hypomagnesemia - Mg 1.6 --> 2.2 - Likely 2/2 inadequate intake - Replete and monitor Transient Confusion/Delirium - 2/2 Drug Encephalopathy (Clonidine) - No obvious neurological deficits - CT scan/CXR: No acute abnormality - UA and Troponin x 2 both negative - She is baseline but disorientated x 3: Time: July, Place: Does not know where she is at, Person: Do not know, even with a clue provided - [employer] for cognitive eval: Suggestive of Early Dementia - MMSE Score 14: Severe Cognitive Impairment - Vit D level normal Chronic: Impaired Vision HTN GERD 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 Low, needs BMP q 10 days sent to his office; home meds resumed per RX. LOS > 96hrs pending placement & HTN mgt. Overall Rossy did quite well. Her renal function continued to improve. Her HTN meds were adjusted and we were able to find a combination that had good results. This was somewhat difficult due to her extensive allergy list. Dr. Mora contacted Dr. Low to discuss her BP goal and possible medications. Dr. Low would like her BP in the 150-160's systolic. He also requested Rossy have a BMP obtained every 10 days with the results being forwarded to his office. Her weakness has improved however she would still benefit from continued PT/OT in the SNF. Occult stool was obtained and was positive however patient in on daily iron supplementation. She will be discharged to [facility] today with Dr. Glaser accepting care. She should follow-up with PCP within 7- 10 days and have her BMP drawn every 10 days with results to Dr. Low and her PCP. - Patient Instructions Diet: Renal Diet Activity: As Tolerated Driving: Do Not Drive Notify Provider of: Fever, Increased Pain, Nausea and/or Vomiting - Discharge Plan Prescriptions/Med Rec: cloNIDine [Catapres] 0.1 mg PO DAILY@1800 PRN #15 tablet PRN Reason: Hypertension Minoxidil [Loniten] 2.5 mg PO BID@1200,2100 #30 tablet Multivitamins,Therapeutic [Thera] 1 each PO BEDTIME #20 tablet Thiamine [Vitamin B-1] 100 mg PO DAILY #20 tablet Home Medications: Home Meds Acyclovir 400 mg PO BID 09/06/17 [History] Cholecalciferol (Vitamin D3) [Vitamin D3] 2,000 units PO DAILY 09/06/17 [History ] Cranberry 1 cap PO DAILY 09/06/17 [History] Cyclophosphamide 25 mg PO ASDIRECTED 09/06/17 [History] Dapsone 25 mg PO DAILY 09/06/17 [History] Doxazosin [Cardura] 16 mg PO BEDTIME 09/06/17 [History] Esomeprazole [NexIUM] 20 mg PO DAILY 09/06/17 [History] Ferrous Sulfate 325 mg PO WITHBREAKFAST 09/06/17 [History] Prednisone [IJD: predniSONE] 30 mg PO WITHBREAKFAST 09/06/17 [History] Sodium Bicarbonate 650 mg PO BID 09/06/17 [History] Minoxidil [Loniten] 2.5 mg PO BID@1200,2100 #30 tablet 10/03/17 [Rx] Multivitamins,Therapeutic [Thera] 1 each PO BEDTIME #20 tablet 10/03/17 [Rx] Thiamine [Vitamin B-1] 100 mg PO DAILY #20 tablet 10/03/17 [Rx] cloNIDine [Catapres] 0.1 mg PO DAILY@1800 PRN #15 tablet 10/03/17 [Rx] Patient Handouts: Chronic Kidney Disease, Adult Referrals: Alejandrina Lyle MD [Primary Care Provider] - (Please follow up with PCP in 7-10 days.) Lucien Glaser MD [Physician] - - Discharge Summary/Plan Comment DC Time >30 min.: Yes (45 Mins ) - General Info Date of Service: 10/03/17 Admission Dx/Problem (Free Text: Admission Diagnosis/Problem Admission Diagnosis/Problem Lethargy Subjective Update: In to see [place]. She is lying in bed resting. She has no complaints today. Her daughter has no concerns. Her labs look good. She will be discharged today to [facility] with Dr. Glaser assuming care. Functional Status: Reports: Pain Controlled, Tolerating Diet, Ambulating, Urinating. Denies: New Symptoms - Review of Systems General: Reports: Weakness, Fatigue. Denies: Fever, Malaise, Chills HEENT: Reports: No Symptoms Pulmonary: Reports: No Symptoms. Denies: Shortness of Breath, Cough Cardiovascular: Reports: No Symptoms. Denies: Chest Pain, Dyspnea on Exertion, Lightheadedness Gastrointestinal: Reports: No Symptoms Genitourinary: Reports: No Symptoms Musculoskeletal: Reports: No Symptoms Skin: Reports: No Symptoms Neurological: Reports: Confusion (baseline) Psychiatric: Reports: No Symptoms - Patient Data Vitals - Most Recent: Last Vital Signs Temp 97.9 F 10/02/17 19:48 Pulse 98 10/02/17 19:48 Resp 18 10/02/17 19:48 BP 152/76 H 10/02/17 21:04 Pulse Ox 96 10/02/17 19:48 Weight - Most Recent: 118 lb 9.6 oz I&O - Last 24 hours: Intake & Output 10/02/17 10/02/17 10/03/17 14:59 22:59 06:59 Intake Total 2834 852 Output Total 600 Balance 2234 852 Med Orders - Current: Current Medications Acetaminophen (Tylenol) 650 mg PO Q4H PRN PRN Reason: Pain (Mild 1-3)/fever Last Admin: 10/02/17 21:04 Dose: 650 mg Hydrocodone Bitart/Acetaminophen ([place] 325-5 Mg) 1 tab PO Q4H PRN PRN Reason: Pain (moderate 4-6) Acyclovir (Zovirax) 400 mg PO BID [place] Last Admin: 10/02/17 21:04 Dose: 400 mg Albuterol/Ipratropium (Duoneb 3.0-0.5 Mg/3 Ml) 3 ml NEB Q4H PRN PRN Reason: Shortness Of Breath/wheezing Bisacodyl (Dulcolax) 5 mg PO DAILY PRN PRN Reason: Constipation Last Admin: 09/25/17 06:11 Dose: 5 mg Cholecalciferol (Vitamin D3) 2,000 units PO DAILY [facility] Last Admin: 10/02/17 08:19 Dose: 2,000 units Clonidine HCl (Catapres) 0.1 mg PO DAILY@1800 PRN PRN Reason: Hypertension Docusate Sodium (Colace) 100 mg PO BID PRN PRN Reason: Constipation Doxazosin Mesylate (Cardura) 16 mg PO BEDTIME [facility] Last Admin: 10/02/17 21:02 Dose: 16 mg Ferrous Sulfate (Ferrous Sulfate) 325 mg PO DAILY@0800 [facility] Last Admin: 10/02/17 08:19 Dose: 325 mg Promethazine HCl 6.25 mg/ (Sodium Chloride) 50.25 mls @ 100 mls/hr IV Q6H PRN PRN Reason: Nausea/Vomiting Lactated Ringer's (Ringers, Lactated) 1,000 mls @ 75 mls/hr IV ASDIRECTED [facility] Last Admin: 10/02/17 21:02 Dose: 75 mls/hr Lorazepam (Ativan) 2 mg IVPUSH Q4H PRN PRN Reason: Seizures Lorazepam (Ativan) 0.25 mg IV Q6H PRN PRN Reason: Anxiety Metoprolol Tartrate (Lopressor) 5 mg IVPUSH Q4H PRN PRN Reason: Tachycardia Minoxidil (Loniten) 2.5 mg PO BID@1200,2100 [facility] Last Admin: 10/02/17 21:04 Dose: 2.5 mg Multivitamins (Thera) 1 each PO BEDTIME [facility] Last Admin: 10/02/17 21:04 Dose: 1 each Ondansetron HCl (Zofran) 4 mg IV Q6H PRN PRN Reason: Nausea/Vomiting Pantoprazole Sodium (Protonix) 40 mg PO DAILY@0700 [facility] Last Admin: 10/03/17 06:20 Dose: 40 mg Cyclophosphamide 25 (Mg) 0 each PO Q2D@0900 [facility] Last Admin: 10/02/17 08:21 Dose: 1 each Dapsone 25 Mg 0 each PO DAILY@1400 [facility] Last Admin: 10/02/17 14:01 Dose: 1 each Polyethylene Glycol (Miralax) 17 gm PO DAILY PRN PRN Reason: Constipation Prednisone (Prednisone) 30 mg PO DAILY@0800 [facility] Last Admin: 10/02/17 08:19 Dose: 30 mg Senna/Docusate Sodium (Senna Plus) 1 tab PO BID PRN PRN Reason: Constipation Last Admin: 09/24/17 17:04 Dose: 1 tab Sodium Bicarbonate (Sodium Bicarbonate) 650 mg PO BID [facility] Last Admin: 10/02/17 21:05 Dose: 650 mg Thiamine HCl (Vitamin B-1) 100 mg PO DAILY [facility] Last Admin: 10/02/17 08:19 Dose: 100 mg Discontinued Medications Acetaminophen (Tylenol) 650 mg PO NOW ONE Stop: 09/30/17 18:04 Last Admin: 09/30/17 20:27 Dose: Not Given Acetaminophen (Tylenol) 650 mg PO NOW ONE Stop: 09/30/17 20:16 Last Admin: 09/30/17 20:29 Dose: 650 mg Alteplase, Recombinant (Activase) Confirm Administered Dose 100 mg .ROUTE .STK- MED ONE Stop: 09/20/17 10:10 Last Admin: 09/21/17 20:29 Dose: Not Given Clonidine HCl (Catapres) 0.1 mg PO Q12H [facility] Last Admin: 09/21/17 19:34 Dose: Not Given Clonidine HCl (Catapres) 0.2 mg PO Q12H [facility] Last Admin: 09/21/17 16:47 Dose: 0.1 mg Clonidine HCl (Catapres) 0.1 mg PO BEDTIME [facility] Stop: 09/28/17 22:00 Last Admin: 09/24/17 20:38 Dose: Not Given Clonidine HCl (Catapres) 0.2 mg PO DAILY [facility] Last Admin: 09/24/17 09:16 Dose: 0.2 mg Clonidine HCl (Catapres) 0.1 mg PO DAILY [facility] Stop: 10/01/17 10:00 Last Admin: 10/01/17 09:09 Dose: 0.1 mg Clonidine HCl (Catapres) 0.1 mg PO DAILY@1800 [facility] Last Admin: 09/25/17 18:25 Dose: Not Given Diphenhydramine HCl (Benadryl) 25 mg IV ONETIME ONE Stop: 09/30/17 18:04 Last Admin: 09/30/17 20:25 Dose: Not Given Diphenhydramine HCl (Benadryl) 25 mg IV ONETIME ONE Stop: 09/30/17 20:16 Last Admin: 09/30/17 20:29 Dose: 25 mg Ferrous Sulfate (Ferrous Sulfate) 325 mg PO WITHBREAKFAST [place] Last Admin: 09/23/17 06:00 Dose: 325 mg Furosemide (Lasix) 40 mg PO BID [place] Last Admin: 09/20/17 21:30 Dose: 40 mg Furosemide (Lasix) 40 mg PO BID [place] Last Admin: 09/23/17 09:32 Dose: 40 mg Furosemide (Lasix) 40 mg PO BIDDIURETIC [place] Last Admin: 09/26/17 06:14 Dose: 40 mg Furosemide (Lasix) 40 mg IV NOW ONE Stop: 09/30/17 18:04 Last Admin: 09/30/17 20:26 Dose: Not Given Furosemide (Lasix) 40 mg IV NOW ONE Stop: 09/30/17 20:16 Last Admin: 10/01/17 01:38 Dose: 40 mg Hydralazine HCl (Apresoline) 10 mg IVPUSH Q4H PRN PRN Reason: Hypertension Last Admin: 09/21/17 04:20 Dose: 10 mg Hydralazine HCl (Apresoline) 5 mg IVPUSH Q6H PRN PRN Reason: Hypertension Hydralazine HCl (Apresoline) 5 mg IVPUSH Q6H PRN PRN Reason: Hypertension Last Admin: 09/22/17 05:17 Dose: 5 mg Hydralazine HCl (Apresoline) 5 mg IVPUSH Q6H PRN PRN Reason: Hypertension Last Admin: 09/27/17 06:46 Dose: 5 mg Magnesium Sulfate 2 gm/ Premix 50 mls @ 50 mls/hr IV ONETIME STA Stop: 09/20/17 12:40 Last Admin: 09/20/17 11:47 Dose: 50 mls/hr Sodium Chloride (Normal Saline) 250 mls @ 999 mls/hr IV ONETIME ONE Stop: 09/24/17 13:45 Last Admin: 09/24/17 13:35 Dose: 999 mls/hr Sodium Chloride (Normal Saline) Confirm Administered Dose 250 mls @ as directed .ROUTE .STK-MED ONE Stop: 09/24/17 13:20 Last Admin: 09/24/17 14:50 Dose: Not Given Lactated Ringer's (Ringers, Lactated) 1,000 mls @ 75 mls/hr IV ASDIRECTED [facility] Last Admin: 09/30/17 12:16 Dose: 75 mls/hr Sodium Chloride (Normal Saline) 250 mls @ 100 mls/hr IV ASDIRECTED [facility] Stop: 09/30/17 23:59 Magnesium Sulfate 2 gm/ Premix 50 mls @ 25 mls/hr IV ONETIME ONE Stop: 10/01/17 11:36 Last Admin: 10/01/17 10:10 Dose: 25 mls/hr Labetalol HCl (Normodyne) 5 mg IVPUSH Q6H PRN; Protocol PRN Reason: Hypertension Magnesium Sulfate (Pharmacy To Dose - Magnesium Replacement) 0 dose .XX ASDIRECTED PRN PRN Reason: RX TO WATCH MAG LEVELS Minoxidil (Loniten) 2.5 mg PO BID [facility] Last Admin: 09/23/17 09:36 Dose: 2.5 mg Minoxidil (Loniten) 2.5 mg PO NOW RUST Stop: 09/22/17 09:13 Last Admin: 09/22/17 11:01 Dose: Not Given Minoxidil (Loniten) 2.5 mg PO BID [facility] Last Admin: 09/24/17 09:16 Dose: 2.5 mg Minoxidil (Loniten) 2.5 mg PO BID [facility] Last Admin: 09/25/17 10:39 Dose: Not Given Nifedipine (Procardia Xl) 15 mg PO BID [facility] Last Admin: 09/22/17 17:15 Dose: Not Given Non-Formulary Medication (Alendronate [Fosamax]) 70 mg PO Tu@0600 [facility] Doxazosin 8 Mg Own (Med) 0 mg PO BEDTIME [facility] Last Admin: 09/20/17 21:30 Dose: 16 mg Acyclovir 400 Mg (Own Med) 0 mg PO BID [facility] Last Admin: 09/20/17 21:30 Dose: 400 mg Non-Formulary Medication (Cranberry [Cranberry]) 1 cap PO DAILY [facility] Sodium Bicarbonate 650 Mg Tab Own Med 0 each PO BID [facility] Last Admin: 09/21/17 09:39 Dose: 1 each Prednisone 20 Mg Tab (Own Med) 0 each PO WITHBREAKFAST [facility] Last Admin: 09/21/17 09:41 Dose: 1.5 each Doxazosin 8 Mg Own (Med) 0 each PO BEDTIME [facility] Acyclovir 400 Mg (Own Med) 0 each PO BID [facility] Last Admin: 09/21/17 09:37 Dose: Not Given Furosemide 40 Mg Tab (Own Meds) 0 each PO BID [facility] Last Admin: 09/21/17 09:39 Dose: Not Given Potassium Chloride (Pharmacy To Dose - Potassium Replacement) 0 dose .XX ASDIRECTED PRN PRN Reason: RX TO WATCH K LEVELS Potassium Chloride (Klor-Con M20) 40 meq PO Q4H [facility] Stop: 09/20/17 22:01 Last Admin: 09/20/17 21:33 Dose: 40 meq Prednisone (Prednisone) 30 mg PO WITHBREAKFAST [facility] Last Admin: 09/21/17 19:33 Dose: Not Given Prednisone (Prednisone) 30 mg PO WITHBREAKFAST [facility] Last Admin: 09/23/17 06:00 Dose: 30 mg Sodium Bicarbonate (Sodium Bicarbonate) 650 mg PO BID [facility] Last Admin: 09/20/17 21:30 Dose: 650 mg Thiamine HCl (Vitamin B-1) 200 mg IV DAILY [facility] Last Admin: 09/29/17 09:23 Dose: Not Given - Exam Quality Assessment: Reports: DVT Prophylaxis General: Reports: Alert, Cooperative, No Acute Distress HEENT: Reports: Pupils Equal, Pupils Reactive, EOMI, Mucous Membr. Moist/[place] Neck: Reports: Supple, Trachea Midline, No JVD Lungs: Reports: Clear to Auscultation, Normal Respiratory Effort Cardiovascular: Reports: Regular Rate, Regular Rhythm GI/Abdominal Exam: Normal Bowel Sounds, Soft, Non-Tender, No Distention (Female) Exam: Deferred Rectal (Female) Exam: Deferred Back Exam: Reports: Normal Inspection, Decreased Range of Motion Extremities: Normal Inspection, Normal Range of Motion, Non-Tender, No Pedal Edema, Normal Capillary Refill Skin: Reports: Warm, Dry, Intact Neurological: Reports: No New Focal Deficit Psy/Mental Status: Reports: Alert, Normal Affect, Normal Mood
[2017-10-03] MEDS: Acyclovir 200 MG Cap PO SCH (08:52)
[2017-10-03] MEDS: Thiamine 100 MG Tab PO SCH (08:52)
[2017-10-03] MEDS: Cholecalciferol (Vitamin D3) 1,000 Unit Tab PO SCH (08:52)
[2017-10-03] MEDS: Sodium Bicarbonate 650 MG Tab PO SCH (08:52)
[2017-10-03] MEDS: predniSONE 10 MG Tab PO SCH (08:53)
[2017-10-03] MEDS: Ferrous Sulfate 325 MG Tab PO SCH (08:53)
[2017-10-03 09:39] VITALS: BP 152/84
== END 2017-10-03 11:10 | DRG 92 ==
LOC: JD.ED 10:09 → UNDOADMOB 14:10 → JD.MS 14:10 → OBSVTOIN 16:03 → INTOOBSV 16:03 → JD.MS 09-21 16:03 → OBSVTOIN 09-21 16:09 → JD.MS 09-21 16:09 → UNDODISIN 10-03 11:10
PROVIDERS: ADMIT Internal Medicine; ATTEND Internal Medicine
DX: G92 Toxic encephalopathy (principal); I12.0 Hypertensive chronic kidney disease with stage 5 chronic kidney disease or end stage renal disease; N18.9 Chronic kidney disease, unspecified; I12.9 Hypertensive chronic kidney disease with stage 1 through stage 4 chronic kidney disease, or unspecified chronic kidney disease; R51 Headache; I51.7 Cardiomegaly; D63.8 Anemia in other chronic diseases classified elsewhere; R31.9 Hematuria, unspecified; D69.6 Thrombocytopenia, unspecified; N18.5 Chronic kidney disease, stage 5; Z87.891 Personal history of nicotine dependence; N17.9 Acute kidney failure, unspecified; T46.5X5A Adverse effect of other antihypertensive drugs, initial encounter; E83.42 Hypomagnesemia; D63.1 Anemia in chronic kidney disease; N32.89 Other specified disorders of bladder; I95.89 Other hypotension; K21.9 Gastro-esophageal reflux disease without esophagitis; M19.90 Unspecified osteoarthritis, unspecified site; M81.0 Age-related osteoporosis without current pathological fracture; H54.7 Unspecified visual loss; F32.9 Major depressive disorder, single episode, unspecified; F41.9 Anxiety disorder, unspecified; F03.90 Unspecified dementia, unspecified severity, without behavioral disturbance, psychotic disturbance, mood disturbance, and anxiety; R53.1 Weakness; Z79.899 Other long term (current) drug therapy; Z88.8 Allergy status to other drugs, medicaments and biological substances
CPT/HCPCS: 36415; 36430; 70450; 70450-26; 71045; 71045-26; 80048; 80053; 81001; 82272; 82306; 82607; 82746; 82962; 83735; 83880; 84132; 84436; 84439; 84443; 84481; 84484; 85007; 85025; 85027; 86140; 86850; 86900; 86901; 86922; 93005; 93010; 96125-GN; 96365; 96375; 96376; 97110-GO; 97110-GP; 97116-GP; 97162-GP; 97166-GO; 97167-GO; 97530-GO; 97530-GP; 99222; 99231; 99232; 99233; 99239; 99284; 99285-25; A9270-GY; G0378; J0360; J1200; J1940; J3411; J3475; J7050; J7120; P9016

== ENCOUNTER 2018-10-05 09:31 | Emergency (ER) | payer OTHER, MEDICARE ==
[2018-10-05 09:55] VITALS: BP 122/51
[2018-10-05] MEDS ORDERED: Sodium Chloride 0.9% 10 ML Syringe FLUSH PRN (10:06)
[2018-10-05] MEDS ORDERED: Sodium Chloride 0.9% 1,000 ML IV SCH (10:15)
--- NOTE | 2018-10-05 10:50 | CT ---
Head CT Technique: Multiple axial sections through the brain were obtained. Intravenous contrast was not utilized. Comparison: Prior head CT exam of 09/20/17. Findings: Ventricles along with basal cisterns and sulci over the convexities are moderately prominent. Diffuse diminished density noted within the periventricular and subcortical white matter. These findings are fairly similar to previous exam and most likely are due to small vessel ischemic demyelination change. Old lacunar infarcts remain stable within the basal ganglia from prior exam. Old infarct is noted within the left side of the cerebellum which appears as an interval change from previous exam. Smaller old appearing infarct is also noted within the right cerebellum which is also an interval change from prior exam. No other abnormal parenchymal densities are seen. No evidence of intracranial hemorrhage. No midline shift or mass effect is seen. No acute paranasal sinus findings are seen. No acute calvarial abnormality is identified. Impression: 1. Senescent changes as described above. 2. Nothing acute is appreciated on noncontrast head CT study. 3. When compared to prior exam, interval old appearing infarcts noted within both cerebellar hemispheres. Diagnostic code #3
--- NOTE | 2018-10-05 11:21 | EDM.PDOC ---
ED HPI GENERAL MEDICAL PROBLEM - General Chief Complaint: Syncope Stated Complaint: [facility] Time Seen by Provider: 10/05/18 09:39 Source of Information: Reports: Patient History Limitations: Reports: No Limitations - History of Present Illness INITIAL COMMENTS - FREE TEXT/NARRATIVE: The patient presents by [facility] for syncope. The patient was in the wheel chair bus on her way to [facility]. The transporter driver found her slumped over and he took her out to the [facility] nurse and she started to arouse. She was leaning to the left and drooling. He BP was good when the nurse took it there. She has had some trouble with low blood pressures recently. She was taken off her lasix and potassium and another medication. She did not eat breakfast this morning. She is back to baseline now. She has no complaints. She has no fever , chills, cough, headache, chest pain, shortness of breath, abdominal pain, nausea or vomiting. Onset: Sudden Duration: Minutes: Improves with: Reports: None Worsens with: Reports: None Associated Symptoms: Reports: No Other Symptoms - Related Data Allergies Allergy/AdvReac Type Severity Reaction Status Date / Time amlodipine [From Norvasc] Allergy Cannot Verified 10/05/18 09:48 Remember atorvastatin [From Lipitor] Allergy Cannot Verified 10/05/18 09:48 Remember fluvastatin [From Lescol] Allergy Cannot Verified 10/05/18 09:48 Remember hydrochlorothiazide Allergy Cannot Verified 10/05/18 09:48 Remember labetalol Allergy Cannot Verified 10/05/18 09:48 Remember lisinopril Allergy Cannot Verified 10/05/18 09:48 Remember nabumetone [From Relafen] Allergy Cannot Verified 10/05/18 09:48 Remember nebivolol [From Bystolic] Allergy Cannot Verified 10/05/18 09:48 Remember olmesartan [From Benicar] Allergy Cannot Verified 10/05/18 09:48 Remember pneumococcal vaccine Allergy Cannot Verified 10/05/18 09:48 Remember rosuvastatin [From Crestor] Allergy Cannot Verified 10/05/18 09:48 Remember simvastatin [From Zocor] Allergy Cannot Verified 10/05/18 09:48 Remember hydralazine AdvReac VASCULITIS Verified 10/05/18 09:48 Home Meds: Home Meds Cholecalciferol (Vitamin D3) [Vitamin D3] 2,000 units PO DAILY 09/06/17 [History ] Cranberry 1 cap PO DAILY 09/06/17 [History] Doxazosin [Cardura] 16 mg PO BEDTIME 09/06/17 [History] Ferrous Sulfate 325 mg PO WITHBREAKFAST 09/06/17 [History] Prednisone [IJD: predniSONE] 5 mg PO WITHBREAKFAST 09/06/17 [History] Multivitamins,Therapeutic [Thera] 1 each PO BEDTIME #20 tablet 10/03/17 [Rx] Donepezil HCl 10 mg PO DAILY 07/14/18 [History] Omeprazole 20 mg PO DAILY 07/14/18 [History] Sertraline [Zoloft] 25 mg PO DAILY 07/14/18 [History] Ascorbic Acid [Vitamin C] 500 mg PO DAILY 10/05/18 [History] Cyanocobalamin (Vitamin B12) [Vitamin B12] 1 ml IM ASDIRECTED 10/05/18 [History] Darbepoetin Brendon in Polysorbat [Aranesp] 100 mcg IJ ASDIRECTED 10/05/18 [History ] Past Medical History HEENT History: Reports: Impaired Vision Cardiovascular History: Reports: Hypertension Respiratory History: Reports: None Gastrointestinal History: Reports: GERD Genitourinary History: Reports: Chronic Renal Insuffiency, Other (See Below) Other Genitourinary History: bladder spasms 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 Musculoskeletal History: Reports: Osteoarthritis, Osteoporosis Neurological History: Reports: Headaches, Chronic Psychiatric History: Reports: Dementia Endocrine/Metabolic History: Reports: None Hematologic History: Reports: Anemia Other Hematologic History: hypercalcemia Immunologic History: Reports: None Oncologic (Cancer) History: Reports: Other (See Below) Other Oncologic History: decreased hemoglobin - Infectious Disease History Infectious Disease History: Reports: None - Past Surgical History Head Surgeries/Procedures: Reports: None HEENT Surgical History: Reports: Cataract Surgery GI Surgical History: Reports: Cholecystectomy, Colonoscopy Female Surgical History: Reports: Cystectomy, Hysterectomy, Suprapubic Catheter Placement, Other (See Below) Musculoskeletal Surgical History: Reports: Arthroscopic Knee, Knee Replacement Dermatological Surgical History: Reports: Skin Biopsy Social & Family History - Family History Family Medical History: Noncontributory - Tobacco Use Smoking Status *Q: Never Smoker - Caffeine Use Caffeine Use: Reports: Coffee, Soda - Recreational Drug Use Recreational Drug Use: No - Living Situation & Occupation Living situation: Reports: , with Spouse, with Family (Son) Occupation: Retired ED ROS GENERAL - Review of Systems Review Of Systems: See Below Constitutional: Reports: No Symptoms HEENT: Reports: No Symptoms Respiratory: Reports: No Symptoms Cardiovascular: Reports: Syncope. Denies: Chest Pain Endocrine: Reports: No Symptoms GI/Abdominal: Reports: No Symptoms : Reports: No Symptoms Musculoskeletal: Reports: No Symptoms - Physical Exam Exam: See Below Exam Limited By: No Limitations General Appearance: Alert, No Apparent Distress Ears: Normal External Exam Nose: Normal Inspection Head Exam: Atraumatic, Normocephalic Neck: Normal Inspection Respiratory/Chest: No Respiratory Distress, Lungs Clear, Normal Breath Sounds Cardiovascular: No Edema, No Murmur, Bradycardia GI/Abdominal: Soft, Non-Tender, No Organomegaly, No Mass Neuro Exam (Abbreviated): Alert, Oriented, No Motor/Sensory Deficits EKG INTERPRETATION EKG Date: 10/05/18 Time: 10:27 Rhythm: Other (sinus bradycardia) Rate (Beats/Min): 49 [place]: LAD-Left [place] Deviation P-Wave: Present QRS: Normal ST-T: Other (Flipped T waves in the inferior leads) QT: Normal NM/PQ Interval: 1st degree HB Course - Vital Signs Last Recorded V/S: Last Vital Signs Temp 97.3 F 10/05/18 09:53 Pulse 62 10/05/18 09:53 Resp 20 10/05/18 09:53 BP 122/51 L 10/05/18 09:53 Pulse Ox 97 10/05/18 09:53 - Orders/Labs/Meds Orders: Active Orders 24 hr Category Date Time Status Cardiac Monitoring [RC] . DIRECTED Care 10/05/18 10:06 Active EKG Documentation Completion [RC] STAT Care 10/05/18 10:07 Active Holter Monitor 48 Hours [RC] .PRN Care 10/05/18 13:22 Active Peripheral IV Care [RC] . DIRECTED Care 10/05/18 10:07 Active Sodium Chloride 0.9% [Normal Saline] 1,000 ml Med 10/05/18 10:15 Active IV ASDIRECTED Sodium Chloride 0.9% [Saline Flush] Med 10/05/18 10:06 Active 10 ml FLUSH ASDIRECTED PRN Peripheral IV Insertion Adult [OM.PC] Stat Oth 10/05/18 10:06 Ordered Medication Orders Sodium Chloride (Normal Saline) 1,000 mls @ 125 mls/hr IV ASDIRECTED TEMITOPE Last Admin: 10/05/18 10:43 Dose: 125 mls/hr Sodium Chloride (Saline Flush) 10 ml FLUSH ASDIRECTED PRN PRN Reason: Keep Vein Open Last Admin: 10/05/18 10:43 Dose: 10 ml Labs: Laboratory Tests 10/05/18 10/05/18 10/05/18 Range/Units 11:30 11:45 12:20 WBC 4.94 (3.98-10.04) K/mm3 RBC 3.51 L (3.98-5.22) M/mm3 Hgb 9.8 L (11.2-15.7) gm/L Hct 32.6 L (34.1-44.9) % MCV 92.9 D (79.4-94.8) fl MCH 27.9 (25.6-32.2) pg MCHC 30.1 L (32.2-35.5) g/dl RDW Std Deviation 51.6 H (36.4-46.3) fL Plt Count 169 L (182-369) K/mm3 MPV 10.8 (9.4-12.3) fl Neut % (Auto) 80.5 H (34.0-71.1) % Lymph % (Auto) 14.4 L (19.3-51.7) % [place] % (Auto) 4.3 L (4.7-12.5) % Eos % (Auto) 0.2 L (0.7-5.8) Baso % (Auto) 0.6 (0.1-1.2) % Neut # (Auto) 3.98 (1.56-6.13) K/mm3 Lymph # (Auto) 0.71 L (1.18-3.74) K/mm3 [place] # (Auto) 0.21 L (0.24-0.36) K/mm3 Eos # (Auto) 0.01 L (0.04-0.36) K/mm3 Baso # (Auto) 0.03 (0.01-0.08) K/mm3 Sodium 142 (136-145) mEq/L Potassium 4.1 (3.5-5.1) mEq/L Chloride 108 H (98-107) mEq/L Carbon Dioxide 22 (21-32) mEq/L Anion Gap 16.1 H (5-15) BUN 35 H D (7-18) mg/dL Creatinine 1.8 H D (0.55-1.02) mg/dL Est Cr Clr Drug Dosing 15.82 mL/min Estimated GFR (MDRD) 27 (>60) mL/min BUN/Creatinine Ratio 19.4 H (14-18) Glucose 109 (83-115) mg/dL Calcium 9.7 (8.5-10.1) mg/dL Magnesium 2.2 (1.8-2.4) mg/dl Total Bilirubin 0.2 (0.2-1.0) mg/dL AST 18 (15-37) U/L ALT 18 (14-59) U/L Alkaline Phosphatase 55 (46-116) U/L Troponin I < 0.017 (0.00-0.056) ng/mL Total Protein 6.5 (6.4-8.2) g/dl Albumin 3.1 L (3.4-5.0) g/dl Globulin 3.4 gm/dL Albumin/Globulin Ratio 0.9 L (1-2) Urine Color Yellow (Yellow) Urine Appearance Clear (Clear) Urine pH 6.0 (5.0-8.0) Ur Specific [place] 1.025 (1.005-1.030) Urine Protein 1+ H (Negative) Urine Glucose (UA) Negative (Negative) Urine Ketones Negative (Negative) Urine Occult Blood Negative (Negative) Urine Nitrite Negative (Negative) Urine Bilirubin Negative (Negative) Urine Urobilinogen 0.2 (0.2-1.0) Ur Leukocyte Esterase Negative (Negative) Urine RBC 0-5 (0-5) /hpf Urine WBC 0-5 (0-5) /hpf Ur Epithelial Cells 0-5 (0-5) /hpf Urine Bacteria Few (FEW) /hpf Urine Mucus Few (FEW) /hpf Meds: Medications Generic Name Dose Route Start Last Admin Trade Name Freq PRN Reason Stop Dose Admin Sodium Chloride 1,000 mls @ 125 mls/hr 10/05/18 10:15 10/05/18 10:43 Normal Saline IV 125 mls/hr ASDIRECTED TEMITOPE Administration Sodium Chloride 10 ml 10/05/18 10:06 10/05/18 10:43 Saline Flush FLUSH 10 ml ASDIRECTED PRN Administration Keep Vein Open - Re-Assessments/Exams Free Text/Narrative Re-Assessment/Exam: 10/05/18 14:10 I ordered an IV saline lock, EKG, CT of her head, labs and a UA. Her CT shows senescent changes. Nothing acute is appreciated on noncontrast head CT study. When compared to prior exam, interval old appearing infarcts noted within both cerebrellar hemispheres. Her EKG shows a sinus bradycardia with no acute changes. Her Hgb is still low at 9.8. Her creatinine is elevated at 1.8. Her troponin is negative. Her UA shows no UTI. Her heart rate is good now but she was slow when she arrived. I will get her on a holter monitor and have her follow up with her doctor. Departure - Departure Time of Disposition: 14:15 Disposition: Home, Self-Care 01 Condition: Good Clinical Impression: Syncope Qualifiers: Syncope type: unspecified Qualified Code(s): R55 - Syncope and collapse - Discharge Information *PRESCRIPTION DRUG MONITORING PROGRAM REVIEWED*: Not Applicable *COPY OF PRESCRIPTION DRUG MONITORING REPORT IN PATIENT LIONEL: Not Applicable Referrals: Lucien Glaser MD [Primary Care Provider] - 1 Week Forms: ED Department Discharge Additional Instructions: Wear the holter monitor for 48 hours. Take your medication as prescribed. Follow up with Dr Glaser in about a week. - My Orders Last 24 Hours: My Active Orders 10/05/18 10:06 Cardiac Monitoring [RC] . DIRECTED Sodium Chloride 0.9% [Saline Flush] 10 ml FLUSH ASDIRECTED PRN Peripheral IV Insertion Adult [OM.PC] Stat 10/05/18 10:07 EKG Documentation Completion [RC] STAT Peripheral IV Care [RC] . DIRECTED 10/05/18 10:15 Sodium Chloride 0.9% [Normal Saline] 1,000 ml IV ASDIRECTED 10/05/18 13:22 Holter Monitor 48 Hours [RC] .PRN - Assessment/Plan Last 24 Hours: My Active Orders 10/05/18 10:06 Cardiac Monitoring [RC] . DIRECTED Sodium Chloride 0.9% [Saline Flush] 10 ml FLUSH ASDIRECTED PRN Peripheral IV Insertion Adult [OM.PC] Stat 10/05/18 10:07 EKG Documentation Completion [RC] STAT Peripheral IV Care [RC] . DIRECTED 10/05/18 10:15 Sodium Chloride 0.9% [Normal Saline] 1,000 ml IV ASDIRECTED 10/05/18 13:22 Holter Monitor 48 Hours [RC] .PRN
== END 2018-10-05 15:09 | disposition home or self-care (01) ==
LOC: JD.ED 09:31
DX: R55 Syncope and collapse (principal); I12.9 Hypertensive chronic kidney disease with stage 1 through stage 4 chronic kidney disease, or unspecified chronic kidney disease; N18.9 Chronic kidney disease, unspecified; D64.9 Anemia, unspecified; K21.9 Gastro-esophageal reflux disease without esophagitis; Z98.49 Cataract extraction status, unspecified eye; Z90.49 Acquired absence of other specified parts of digestive tract; Z90.710 Acquired absence of both cervix and uterus; F03.90 Unspecified dementia, unspecified severity, without behavioral disturbance, psychotic disturbance, mood disturbance, and anxiety; Z88.7 Allergy status to serum and vaccine; Z88.8 Allergy status to other drugs, medicaments and biological substances; M19.90 Unspecified osteoarthritis, unspecified site; Z79.899 Other long term (current) drug therapy
CPT/HCPCS: 36415; 70450; 80053; 81001; 83735; 84484; 85025; 93005; 93225; 93226; 96360; 96361; 99284; J7040; 93010

== ENCOUNTER 2019-07-05 10:16 | Emergency (ER) | payer OTHER, MEDICARE ==
[2019-07-05 10:51] VITALS: BP 189/79; PULSE 74
--- NOTE | 2019-07-05 11:50 | EDM.PDOC ---
ED HPI GENERAL MEDICAL PROBLEM - General Chief Complaint: Respiratory Problem Stated Complaint: COUGH AND FLUID RETENTION Time Seen by Provider: 07/05/19 10:58 Source of Information: Reports: Patient, Family History Limitations: Reports: No Limitations - History of Present Illness INITIAL COMMENTS - FREE TEXT/NARRATIVE: Patient is an 88-year-old female who presents with her and granddaughter with complaints of "wet sounding lungs "for the last couple days. Patient is cared for by [facility]. Patient has a history of congestive heart failure, as well as stage IV chronic kidney disease. A chest x-ray was completed yesterday at [place] and showed signs of pulmonary vascular congestion. Her provider started her on Lasix 20 mg for 3 days, however, they are concerned with increasing her Lasix due to her kidney disease. She has thus far received 2 doses of this Lasix. Patient denies any fever, chills, apnea at rest, dyspnea with exertion, or orthopnea. - Related Data Allergies Allergy/AdvReac Type Severity Reaction Status Date / Time amlodipine [From Norvasc] Allergy Cannot Verified 07/05/19 10:53 Remember atorvastatin [From Lipitor] Allergy Cannot Verified 07/05/19 10:53 Remember fluvastatin [From Lescol] Allergy Cannot Verified 07/05/19 10:53 Remember hydrochlorothiazide Allergy Cannot Verified 07/05/19 10:53 Remember labetalol Allergy Cannot Verified 07/05/19 10:53 Remember lisinopril Allergy Cannot Verified 07/05/19 10:53 Remember nabumetone [From Relafen] Allergy Cannot Verified 07/05/19 10:53 Remember nebivolol [From Bystolic] Allergy Cannot Verified 07/05/19 10:53 Remember olmesartan [From Benicar] Allergy Cannot Verified 07/05/19 10:53 Remember pneumococcal vaccine Allergy Cannot Verified 07/05/19 10:53 Remember rosuvastatin [From Crestor] Allergy Cannot Verified 07/05/19 10:53 Remember simvastatin [From Zocor] Allergy Cannot Verified 07/05/19 10:53 Remember hydralazine AdvReac VASCULITIS Verified 07/05/19 10:53 Home Meds: Home Meds Cholecalciferol (Vitamin D3) [Vitamin D3] 2,000 units PO DAILY 09/06/17 [History ] Cranberry 1 cap PO DAILY 09/06/17 [History] Doxazosin [Cardura] 16 mg PO BEDTIME 09/06/17 [History] Ferrous Sulfate 325 mg PO WITHBREAKFAST 09/06/17 [History] Prednisone [IJD: predniSONE] 5 mg PO WITHBREAKFAST 09/06/17 [History] Multivitamins,Therapeutic [Thera] 1 each PO BEDTIME #20 tablet 10/03/17 [Rx] Donepezil HCl 10 mg PO DAILY 07/14/18 [History] Omeprazole 20 mg PO DAILY 07/14/18 [History] Sertraline [Zoloft] 25 mg PO DAILY 07/14/18 [History] Ascorbic Acid [Vitamin C] 500 mg PO DAILY 10/05/18 [History] Cyanocobalamin (Vitamin B12) [Vitamin B12] 1 ml IM ASDIRECTED 10/05/18 [History] Darbepoetin Brendon in Polysorbat [Aranesp] 100 mcg IJ ASDIRECTED 10/05/18 [History ] Past Medical History HEENT History: Reports: Impaired Vision Cardiovascular History: Reports: Hypertension Respiratory History: Reports: None Gastrointestinal History: Reports: GERD Genitourinary History: Reports: Chronic Renal Insuffiency, Other (See Below) Other Genitourinary History: bladder spasms 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 Musculoskeletal History: Reports: Osteoarthritis, Osteoporosis Neurological History: Reports: Headaches, Chronic Psychiatric History: Reports: Dementia Endocrine/Metabolic History: Reports: None Hematologic History: Reports: Anemia Other Hematologic History: hypercalcemia Immunologic History: Reports: None Oncologic (Cancer) History: Reports: Other (See Below) Other Oncologic History: decreased hemoglobin - Infectious Disease History Infectious Disease History: Reports: None - Past Surgical History Head Surgeries/Procedures: Reports: None HEENT Surgical History: Reports: Cataract Surgery GI Surgical History: Reports: Cholecystectomy, Colonoscopy Female Surgical History: Reports: Cystectomy, Hysterectomy, Suprapubic Catheter Placement, Other (See Below) Musculoskeletal Surgical History: Reports: Arthroscopic Knee, Knee Replacement Dermatological Surgical History: Reports: Skin Biopsy Social & Family History - Family History Family Medical History: Noncontributory - Tobacco Use Smoking Status *Q: Never Smoker Second Hand Smoke Exposure: No - Caffeine Use Caffeine Use: Reports: Coffee, Soda - Recreational Drug Use Recreational Drug Use: No - Living Situation & Occupation Living situation: Reports: , with Spouse, with Family (Son) Occupation: Retired ED ROS GENERAL - Review of Systems Review Of Systems: Comprehensive ROS is negative, except as noted in HPI. ED EXAM, GENERAL - Physical Exam Exam: See Below Exam Limited By: No Limitations General Appearance: Alert, WD/WN, No Apparent Distress Throat/Mouth: Normal Inspection, Normal Lips, Normal Teeth, Normal Gums, Normal Oropharynx, Normal Voice, No Airway Compromise Head: Atraumatic, Normocephalic Respiratory/Chest: No Respiratory Distress, No Accessory Muscle Use, Chest Non- Tender, Crackles (bilateral bases) Cardiovascular: Normal Peripheral Pulses, Regular Rate, Rhythm, No Edema, No Gallop, No JVD, No Murmur, No Rub Neurological: Alert, Oriented, CN II-XII Intact, Normal Cognition, Normal Gait, Normal Reflexes, No Motor/Sensory Deficits Psychiatric: Normal Affect, Normal Mood Skin Exam: Warm, Dry, Intact, Normal Color, No Rash Course - Vital Signs Last Recorded V/S: Last Vital Signs Temp 98.2 F 07/05/19 10:48 Pulse 74 07/05/19 10:48 Resp 24 H 07/05/19 10:48 BP 189/79 H 07/05/19 10:48 Pulse Ox 94 L 07/05/19 10:48 - Orders/Labs/Meds Labs: Laboratory Tests 07/05/19 07/05/19 07/05/19 Range/Units 12:19 12:19 12:19 WBC 6.15 (3.98-10.04) K/mm3 RBC 4.17 (3.98-5.22) M/mm3 Hgb 11.6 D (11.2-15.7) gm/dl Hct 38.5 (34.1-44.9) % MCV 92.3 (79.4-94.8) fl MCH 27.8 (25.6-32.2) pg MCHC 30.1 L (32.2-35.5) g/dl RDW Std Deviation 54.8 H (36.4-46.3) fL Plt Count 172 L (182-369) K/mm3 MPV 10.8 (9.4-12.3) fl Neut % (Auto) 81.1 H (34.0-71.1) % Lymph % (Auto) 13.0 L (19.3-51.7) % [place] % (Auto) 5.5 (4.7-12.5) % Eos % (Auto) 0 L (0.7-5.8) Baso % (Auto) 0.2 (0.1-1.2) % Neut # (Auto) 4.99 (1.56-6.13) K/mm3 Lymph # (Auto) 0.80 L (1.18-3.74) K/mm3 [place] # (Auto) 0.34 (0.24-0.36) K/mm3 Eos # (Auto) 0.00 L (0.04-0.36) K/mm3 Baso # (Auto) 0.01 (0.01-0.08) K/mm3 Sodium 143 (136-145) mEq/L Potassium 3.6 (3.5-5.1) mEq/L Chloride 105 (98-107) mEq/L Carbon Dioxide 25 (21-32) mEq/L Anion Gap 16.6 H (5-15) BUN 27 H (7-18) mg/dL Creatinine 2.1 H (0.55-1.02) mg/dL Est Cr Clr Drug Dosing 13.56 mL/min Estimated GFR (MDRD) 22 (>60) mL/min BUN/Creatinine Ratio 12.9 L (14-18) Glucose 118 H (83-115) mg/dL Calcium 10.7 H (8.5-10.1) mg/dL Total Bilirubin 0.4 (0.2-1.0) mg/dL AST 54 H (15-37) U/L ALT 56 (14-59) U/L Alkaline Phosphatase 58 (46-116) U/L NT-Pro-B Natriuret Pep 8882 H (0-450) pg/mL Total Protein 7.7 (6.4-8.2) g/dl Albumin 3.5 (3.4-5.0) g/dl Globulin 4.2 gm/dL Albumin/Globulin Ratio 0.8 L (1-2) - Re-Assessments/Exams Free Text/Narrative Re-Assessment/Exam: 07/05/19 12:51 Hematology was significant for BUN elevated at 27, creatinine elevated at 2.1, anion gap mildly elevated at 16.6. WBCs were normal. BNP is elevated at 8882 which is consistent with a CHF exacerbation. Chest x-ray today does show some mild pulmonary vascular congestion, however when compared with a chest x-ray completed at [place] yesterday, it is improved. Patient's vital signs have been stable. She is oxygenating 94 to 96% on room air. She denies any dyspnea. I am going to recommend that she continue to take the Lasix 20 mg for a total of 3 days and that she follow-up closely with her primary care provider to ensure that she does not begin to reaccumulate the fluid within her lungs. Recommend that pace weigh her daily and track these weights while keeping a close contact with her primary care. Discharge instructions as documented. Departure - Departure Time of Disposition: 13:27 Disposition: Home, Self-Care 01 Condition: Fair Clinical Impression: CHF exacerbation Qualifiers: Heart failure type: unspecified Qualified Code(s): I50.9 - Heart failure, unspecified - Discharge Information *PRESCRIPTION DRUG MONITORING PROGRAM REVIEWED*: No *COPY OF PRESCRIPTION DRUG MONITORING REPORT IN PATIENT LIONEL: No Instructions: Heart Failure Exacerbation Referrals: Kiran Nguyen MD [Primary Care Provider] - Forms: ED Department Discharge Additional Instructions: Rossy was seen in the emergency department today for "wet sounding lungs ". Work-up included blood work as well as a chest x-ray. Findings were consistent with that of a CHF exacerbation. Vital signs while in the emergency department were stable. Oxygen saturations were 94 to 96% on room air. When comparing her chest x-ray that was taken yesterday at [facility] with today's chest x-ray, the congestion within the lungs does appear to have improved. I recommend that Rossy continue to take the Lasix 20 mg daily for a total of 3 days as was previously ordered by her primary care provider. I do also recommend that you weigh her daily. Any increase in weight of 2 pounds in 24 hours or more than 5 pounds in 1 week is concerning for reaccumulation of fluids and would warrant follow-up either with her primary care provider or the emergency department. Additionally, if she should experience any increasing shortness of breath, fever , chills, nausea, vomiting, or diarrhea, I would recommend that she follow-up either with her primary care provider or in the emergency department. Sepsis Event Note - Evaluation Sepsis Screening Result: No Definite Risk - Focused Exam Vital Signs: Vital Signs Temp Pulse Resp BP Pulse Ox 07/05/19 10:48 98.2 F 74 24 H 189/79 H 94 L Date Exam was Performed: 07/05/19 Time Exam was Performed: 18:51
--- NOTE | 2019-07-05 13:27 | CR ---
Chest: Two views of the chest were obtained. Comparison: Prior chest x-ray of 07/04/19. Stable cardiomegaly. Tortuous thoracic aorta is noted. Lung markings are slightly increased which are stable. No acute parenchymal change is seen. Prior vertebroplasty is noted within the spine at the thoracolumbar junction. Bony structures are osteopenic. Scoliosis is present. Impression: 1. Cardiomegaly. 2. Other findings as noted above. 3. Nothing acute is appreciated. Diagnostic code #2 Study was dictated in [place] Standard Time
== END 2019-07-05 14:08 | disposition home or self-care (01) ==
LOC: JD.ED 10:16
DX: I13.0 Hypertensive heart and chronic kidney disease with heart failure and stage 1 through stage 4 chronic kidney disease, or unspecified chronic kidney disease (principal); I50.9 Heart failure, unspecified; N18.4 Chronic kidney disease, stage 4 (severe); F03.90 Unspecified dementia, unspecified severity, without behavioral disturbance, psychotic disturbance, mood disturbance, and anxiety; Z98.49 Cataract extraction status, unspecified eye; Z90.49 Acquired absence of other specified parts of digestive tract; Z90.710 Acquired absence of both cervix and uterus; Z88.8 Allergy status to other drugs, medicaments and biological substances; Z79.899 Other long term (current) drug therapy
CPT/HCPCS: 36415; 71046; 71046-26; 80053; 83880; 85025; 99283; 99283-25